=== PATIENT | male | born 1955 | race African-American/Black ===

== ENCOUNTER 2019-01-01 03:10 | Emergency (ER) | payer OTHER ==
[2019-01-01] MEDS ORDERED: MORPHINE 2 MG/ML SYR ONE ×2 (03:57→05:10)
[2019-01-01] MEDS ORDERED: NA CHLORIDE 0.9% 1,000 ML ONE (03:57)
[2019-01-01] MEDS ORDERED: DEXAMETHASONE 4 MG/ML VIAL ONE (03:57)
[2019-01-01] MEDS ORDERED: ONDANSETRON 4 MG/2 ML VIAL ONE (03:57)
[2019-01-01 04:06] LABS: Protime INR 3.25
[2019-01-01 04:07] LABS: Absolute Lymphocytes (CBC) 0.5 K/uL (0.7-4.9); Absolute Monocytes 0.4 K/uL (0.1-1.3); Absolute Neutrophil 5.6 K/uL (1.8-8.0); Basophils % 0.4 % (0-1.3); Hematocrit 39.4 % (39.6-49.0); Lymphocytes % 6.9 % (15.3-44.8); MPV 8.7 fL (7.6-11.3); Monocytes % 6.7 % (3.3-12.3); RBC Red Blood Cell Count 4.41 M/uL (4.33-5.43)
[2019-01-01] MEDS ORDERED: DIAZEPAM 5 MG TABLET ONE (04:14)
[2019-01-01 04:27] LABS: Albumin 3.1 g/dL (3.4-5.0); Bilirubin Direct 0.3 mg/dL (0-0.2); Bilirubin Total 1.1 mg/dL (0.2-1.0); Magnesium 1.8 mg/dL (1.8-2.4); Potassium 4.2 mmol/L (3.5-5.1); Protein, Total 6.7 g/dL (6.4-8.2); Troponin (Emerg Dept Use Only) 0.03 ng/mL (0.0-0.045)
--- NOTE | 2019-01-01 04:54 | ER ---
Nurse's Notes [facility] Name: Jose Guadalupe Moss Age: 63 yrs Sex: Male : 1955 Arrival Date: 01/01/2019 Time: 03:12 Bed 15 Private MD: Diagnosis: Strain of muscle, fascia and tendon at neck level;Cardiomegaly;Unspecified combined systolic (congestive) and diastolic (congestive) heart failure;Spondylolysis, cervical region Presentation: 01/01 03:15 Presenting complaint: Patient states: nontraumatic neck pain radiating to shoulders cc3 since Thursday night. Patient has difficulty lying on bed with pillow, and pain upon neck and head movement. Transition of care: patient was not received from another setting of care. Onset of symptoms was December 29, 2018. Risk Assessment: Do you want to hurt yourself or someone else? Patient reports no desire to harm self or others. Initial Sepsis Screen: Does the patient meet any 2 criteria? No. Patient's initial sepsis screen is negative. Does the patient have a suspected source of infection? No. Patient's initial sepsis screen is negative. Care prior to arrival: None. 03:15 Method Of Arrival: Ambulatory cc3 03:15 Acuity: MATEUS 3 cc3 Triage Assessment: 03:15 General: Appears in no apparent distress. uncomfortable, Behavior is calm, cooperative, cc3 appropriate for age. Pain: Complains of pain in back of neck Pain does not radiate. Pain radiates to shoulders Pain currently is 8 out of 10 on a pain scale. Quality of pain is described as aching. EENT: No signs and/or symptoms were reported regarding the EENT system. Neuro: Level of Consciousness is awake, alert, obeys commands, Oriented to person, place, time, situation, Appropriate for age. Cardiovascular: Patient's skin is warm and dry. Respiratory: Airway is patent Respiratory effort is even, unlabored, Respiratory pattern is regular, symmetrical. GI: Abdomen is round non-distended. : No signs and/or symptoms were reported regarding the genitourinary system. Derm: No signs and/or symptoms reported regarding the dermatologic system. Musculoskeletal: No signs and/or symptoms reported regarding the musculoskeletal system. Historical: - Allergies: 03:15 PENICILLINS; cc3 - Home Meds: 03:15 glimepiride 4 mg Oral tab 1 tab 2x daily [Active]; lovastatin 20 mg Oral tab 1 tab once cc3 daily [Active]; Warfarin 7 mg daily Oral [Active]; carvedilol 12.5 mg oral tab 1 tab 2 times per day [Active]; Entresto 49-51 mg oral tab 1 tab 2 times per day [Active]; furosemide 40 mg Oral tab 1 tab once daily [Active]; - PMHx: 03:15 Diabetes - NIDDM; Hypertension; Pacemaker; cc3 - PSHx: 03:15 left femur surgery; Hernia repair; cc3 - Immunization history:: Adult Immunizations not up to date. - Social history:: Smoking status: Patient/guardian denies using tobacco, never smoked. - Ebola Screening: : No symptoms or risks identified at this time. Screenin:15 Abuse screen: Denies threats or abuse. Denies injuries from another. Nutritional cc3 screening: No deficits noted. Tuberculosis screening: No symptoms or risk factors identified. Fall Risk Ambulatory Aid- None/Bed Rest/Nurse Assist (0 pts). Gait- Normal/Bed Rest/Wheelchair (0 pts) Mental Status- Oriented to own ability (0 pts). Assessment: 03:15 General: see triage assessment. cc3 04:00 Reassessment: Patient appears in no apparent distress at this time. Patient and/or cc3 family updated on plan of care and expected duration. Pain level reassessed. Patient is alert, oriented x 3, equal unlabored respirations, skin warm/dry/pink. Patient came back from CT scan department, awaiting result. 05:15 Reassessment: Patient appears in no apparent distress at this time. Patient and/or cc3 family updated on plan of care and expected duration. Pain level reassessed. Patient is alert, oriented x 3, equal unlabored respirations, skin warm/dry/pink. Dr. Hernadez discharged home the patient with prescription given. IV cannula removed and patient left ER vitally stable and ambulatory with his . Patient states feeling better. Patient states symptoms have improved. Vital Signs: 03:15 BP 147 / 97; Pulse 86; Resp 19 S; Temp 98(O); Pulse Ox 97% on R/A; Weight 97.07 kg (R); cc3 Height 5 ft. 11 in. (180.34 cm) (R); Pain 8/10; 04:29 BP 135 / 93; Pulse 78; Resp 20 S; Pulse Ox 98% on R/A; cc3 05:00 BP 137 / 85; Pulse 79; Resp 20 S; Pulse Ox 97% on R/A; cc3 03:15 Body Mass Index 29.85 (97.07 kg, 180.34 cm) cc3 ED Course: 03:12 Patient arrived in ED. am2 03:15 Arm band placed on right wrist. Patient notified of wait time. cc3 03:15 Patient has correct armband on for positive identification. Placed in gown. Bed in low cc3 position. Call light in reach. Side rails up X 1. 03:16 Davidson Hernadez MD is Attending Physician. [facility] 03:26 Cailin Flowers is Primary Nurse. cc3 03:33 Triage completed. cc3 03:38 XRAY Chest (1 view) In Process Unspecified. EDMS 03:45 Inserted saline lock: 20 gauge in right antecubital area, using aseptic technique. jd3 Blood collected. 03:[address] via wheelchair. kw1 03:56 CT completed. Patient tolerated procedure well. Patient moved back from CT. kw1 04:05 CT Head C Spine In Process Unspecified. EDMS 05:10 No provider procedures requiring assistance completed. IV discontinued, intact, cc3 bleeding controlled, No redness/swelling at site. Pressure dressing applied. Administered Medications: 04:00 Drug: NS 0.9% 1000 ml Route: IV; Rate: 75 ml/hr; Site: right antecubital; cc3 05:15 Follow up: Response: No adverse reaction; IV Status: Order to discontinue infusion; cc3 patient discharged home 04:00 Drug: Valium 5 mg Route: PO; cc3 04:33 Follow up: Response: No adverse reaction cc3 04:05 Drug: morphine 2 mg Route: IVP; Site: right antecubital; cc3 04:45 Follow up: Response: No adverse reaction cc3 04:08 Drug: Zofran 4 mg Route: IVP; Site: right antecubital; cc3 04:36 Follow up: Response: No adverse reaction; Nausea is decreased cc3 04:12 Drug: Decadron - Dexamethasone 10 mg Route: IVP; Site: right antecubital; cc3 04:37 Follow up: Response: No adverse reaction cc3 04:52 Drug: Lasix 40 mg Route: IVP; Site: right antecubital; cc3 05:15 Follow up: Response: No adverse reaction cc3 05:00 Drug: morphine 2 mg Route: IVP; Site: right antecubital; cc3 05:15 Follow up: Response: No adverse reaction; Pain is decreased cc3 Intake: Outcome: 04:53 Discharge ordered by MD. mckeon 05:10 Discharged to home ambulatory, with family. cc3 05:10 Condition: stable 05:10 Discharge instructions given to patient, family, Instructed on discharge instructions, follow up and referral plans. medication usage, Demonstrated understanding of instructions, follow-up care, medications, Prescriptions given X 3. 05:19 Patient left the ED. cc3 Signatures: Dispatcher [employer] Davidson Sheppard MD MD cha Moreno, Amanda am2 Davies, Jonathon RN RN Tamia Acosta1 Cailin Flowers cc3 Corrections: (The following items were deleted from the chart) 05:31 05:15 Reassessment: Patient appears in no apparent distress at this time. Patient cc3 and/or family updated on plan of care and expected duration. Pain level reassessed. Patient is alert, oriented x 3, equal unlabored respirations, skin warm/dry/pink. Dr. Hernadez discharged home the patient with prescription given. IV cannula removed and patient left ER vitally stable and ambulatory with his . cc3
--- NOTE | 2019-01-01 04:54 | EDPHYS ---
Physician Documentation [facility] Name: Jose Guadalupe Moss Age: 63 yrs Sex: Male : 1955 Arrival Date: 01/01/2019 Time: 03:12 Bed 15 Private MD: ED Physician Davidson Hernadez HPI: 01/01 03:26 This 63 yrs old Black Male presents to ER via Unassigned with complaints of Neck Pain, linda >24Hrs Old. 03:26 The patient or guardian complains of decreased range of motion, pain, tenderness. The linda symptoms are located on the back of neck. Onset: The symptoms/episode began/occurred at an unknown time. Context: The problem was sustained at home. Associated signs and symptoms: Pertinent positives: weakness. The pain does not radiate. Severity of symptoms: At their worst the symptoms were. Historical: - Allergies: 03:15 PENICILLINS; cc3 - Home Meds: 03:15 glimepiride 4 mg Oral tab 1 tab 2x daily [Active]; lovastatin 20 mg Oral tab 1 tab once cc3 daily [Active]; Warfarin 7 mg daily Oral [Active]; carvedilol 12.5 mg oral tab 1 tab 2 times per day [Active]; Entresto 49-51 mg oral tab 1 tab 2 times per day [Active]; furosemide 40 mg Oral tab 1 tab once daily [Active]; - PMHx: 03:15 Diabetes - NIDDM; Hypertension; Pacemaker; cc3 - PSHx: 03:15 left femur surgery; Hernia repair; cc3 - Immunization history:: Adult Immunizations not up to date. - Social history:: Smoking status: Patient/guardian denies using tobacco, never smoked. - Ebola Screening: : No symptoms or risks identified at this time. ROS: 03:26 Constitutional: Negative for fever, chills, and weight loss, Eyes: Negative for injury, linda pain, redness, and discharge, ENT: Negative for injury, pain, and discharge, Cardiovascular: Negative for chest pain, palpitations, and edema, Abdomen/GI: Negative for abdominal pain, nausea, vomiting, diarrhea, and constipation, Back: Negative for injury and pain, : Negative for injury, bleeding, discharge, and swelling, MS/Extremity: Negative for injury and deformity, Skin: Negative for injury, rash, and discoloration, Neuro: Negative for headache, weakness, numbness, tingling, and seizure, Psych: Negative for depression, anxiety, suicide ideation, homicidal ideation, and hallucinations, Allergy/Immunology: Negative for hives, rash, and allergies, Endocrine: Negative for neck swelling, polydipsia, polyuria, polyphagia, and marked weight changes, Hematologic/Lymphatic: Negative for swollen nodes, abnormal bleeding, and unusual bruising. 03:26 Respiratory: Positive for shortness of breath. Exam: 03:26 Constitutional: This is a well developed, well nourished patient who is awake, alert, linda and in no acute distress. Head/Face: Normocephalic, atraumatic. Eyes: Pupils equal round and reactive to light, extra-ocular motions intact. Lids and lashes normal. Conjunctiva and sclera are non-icteric and not injected. Cornea within normal limits. Periorbital areas with no swelling, redness, or edema. ENT: Nares patent. No nasal discharge, no septal abnormalities noted. Tympanic membranes are normal and external auditory canals are clear. Oropharynx with no redness, swelling, or masses, exudates, or evidence of obstruction, uvula midline. Mucous membranes moist. Chest/axilla: Normal chest wall appearance and motion. Nontender with no deformity. No lesions are appreciated. Cardiovascular: Regular rate and rhythm with a normal S1 and S2. No gallops, murmurs, or rubs. Normal PMI, no JVD. No pulse deficits. Respiratory: Lungs have equal breath sounds bilaterally, clear to auscultation and percussion. No rales, rhonchi or wheezes noted. No increased work of breathing, no retractions or nasal flaring. Abdomen/GI: Soft, non-tender, with normal bowel sounds. No distension or tympany. No guarding or rebound. No evidence of tenderness throughout. Back: No spinal tenderness. No costovertebral tenderness. Full range of motion. Male : Normal genitalia with no discharge or lesions. Skin: Warm, dry with normal turgor. Normal color with no rashes, no lesions, and no evidence of cellulitis. MS/ Extremity: Pulses equal, no cyanosis. Neurovascular intact. Full, normal range of motion. Neuro: Awake and alert, GCS 15, oriented to person, place, time, and situation. Cranial nerves II-XII grossly intact. Motor strength 5/5 in all extremities. Sensory grossly intact. Cerebellar exam normal. Normal gait. Psych: Awake, alert, with orientation to person, place and time. Behavior, mood, and affect are within normal limits. 03:26 Neck: External neck: is normal, no acute changes, C-spine: no acute changes, Thyroid: appears normal, Trachea: is midline with no obvious abnormalities, ROM/movement: limited range of motion, nuchal rigidity, is not appreciated, Lymph nodes: no appreciated lymphadenopathy. Vital Signs: 03:15 BP 147 / 97; Pulse 86; Resp 19 S; Temp 98(O); Pulse Ox 97% on R/A; Weight 97.07 kg (R); cc3 Height 5 ft. 11 in. (180.34 cm) (R); Pain 8/10; 04:29 BP 135 / 93; Pulse 78; Resp 20 S; Pulse Ox 98% on R/A; cc3 05:00 BP 137 / 85; Pulse 79; Resp 20 S; Pulse Ox 97% on R/A; cc3 03:15 Body Mass Index 29.85 (97.07 kg, 180.34 cm) cc3 MDM: 03:[address] [facility] 03:29 Data reviewed: vital signs, nurses notes, lab test result(s), EKG, radiologic studies, [facility] CT scan, plain films. 01/01 03:24 Order name: Basic Metabolic Panel; Complete Time: 04:[address] [facility] 01/01 03:24 Order name: CBC with Diff; Complete Time: 04:[address] [facility] 01/01 03:24 Order name: LFT's; Complete Time: 04:[address] [facility] 01/01 03:24 Order name: Magnesium; Complete Time: 04:[address] [facility] 01/01 03:24 Order name: NT PRO-BNP; Complete Time: 04:[address] [facility] 01/01 03:24 Order name: PT-INR; Complete Time: 04:[address] [facility] 01/01 03:24 Order name: Troponin (emerg Dept Use Only); Complete Time: 04:[address] [facility] 01/01 03:25 Order name: XRAY Chest (1 view) [facility] 01/01 03:25 Order name: CT Head C Spine [facility] 01/01 03:25 Order name: EKG; Complete Time: 03:[address] [facility] 01/01 03:25 Order name: Cardiac monitoring; Complete Time: 03:[address] [facility] 01/01 03:25 Order name: EKG - Nurse/Tech; Complete Time: 03:[address] [facility] 01/01 03:25 Order name: IV Saline Lock; Complete Time: 03:[address] [facility] 01/01 03:25 Order name: Labs collected and sent; Complete Time: 03:[address] [facility] 01/01 03:25 Order name: O2 Per Protocol; Complete Time: 03:[address] [facility] 01/01 03:25 Order name: O2 Sat Monitoring; Complete Time: 03:[address] [facility] Administered Medications: 04:00 Drug: NS 0.9% 1000 ml Route: IV; Rate: 75 ml/hr; Site: right antecubital; cc3 05:15 Follow up: Response: No adverse reaction; IV Status: Order to discontinue infusion; cc3 patient discharged home 04:00 Drug: Valium 5 mg Route: PO; cc3 04:33 Follow up: Response: No adverse reaction cc3 04:05 Drug: morphine 2 mg Route: IVP; Site: right antecubital; cc3 04:45 Follow up: Response: No adverse reaction cc3 04:08 Drug: Zofran 4 mg Route: IVP; Site: right antecubital; cc3 04:36 Follow up: Response: No adverse reaction; Nausea is decreased cc3 04:12 Drug: Decadron - Dexamethasone 10 mg Route: IVP; Site: right antecubital; cc3 04:37 Follow up: Response: No adverse reaction cc3 04:52 Drug: Lasix 40 mg Route: IVP; Site: right antecubital; cc3 05:15 Follow up: Response: No adverse reaction cc3 05:00 Drug: morphine 2 mg Route: IVP; Site: right antecubital; cc3 05:15 Follow up: Response: No adverse reaction; Pain is decreased cc3 Disposition: 01/01/19 04:53 Discharged to Home. Impression: Strain of muscle, fascia and tendon at neck level, Cardiomegaly, Unspecified combined systolic (congestive) and diastolic (congestive) heart failure, Spondylolysis, cervical region. - Condition is Stable. - Discharge Instructions: Heart Failure, Muscle Strain, Cervical Sprain, [id number], Heart Failure, [id number]. - Prescriptions for Tylenol- Codeine #3 300-30 mg Oral Tablet - take 2 tablet by ORAL route every 6 hours As needed; 30 tablet. Valium 5 mg Oral Tablet - take 1 tablet by ORAL route every 8 hours As needed; 15 tablet. Medrol (Al) 4 mg Oral Tablets, Dose Pack - take 1 tablet by ORAL route as directed - follow package instructions; 1 packet. - Medication Reconciliation Form, Thank You Letter, Antibiotic Education, Prescription Opioid Use form. - Follow up: Private Physician; When: 2 - 3 days; Reason: Recheck today's complaints, Continuance of care, Re-evaluation by your physician. - Problem is new. - Symptoms have improved. Signatures: Dispatcher [employer] EDMS Davidson Hernadez MD MD cha Cordel, Charlene cc3 Corrections: (The following items were deleted from the chart) 04:54 04:53 01/01/2019 04:53 Discharged to Home. Impression: Strain of muscle, fascia and linda tendon at neck level; Cardiomegaly; Unspecified combined systolic (congestive) and diastolic (congestive) heart failure. Condition is Stable. Discharge Instructions: Muscle Strain, Cervical Sprain, [id number]. Prescriptions for Tylenol-Codeine #3 300-30 mg Oral Tablet - take 2 tablet by ORAL route every 6 hours As needed; 30 tablet, Valium 5 mg Oral Tablet - take 1 tablet by ORAL route every 8 hours As needed; 15 tablet, Medrol (Al) 4 mg Oral Tablets, Dose Pack - take 1 tablet by ORAL route as directed - follow package instructions; 1 packet. and Forms are Medication Reconciliation Form, Thank You Letter, Antibiotic Education, Prescription Opioid Use. Follow up: Private Physician; When: 2 - 3 days; Reason: Recheck today's complaints, Continuance of care, Re-evaluation by your physician. Problem is new. Symptoms have improved. [facility] 05:19 04:54 01/01/2019 04:53 Discharged to Home. Impression: Strain of muscle, fascia and cc3 tendon at neck level; Cardiomegaly; Unspecified combined systolic (congestive) and diastolic (congestive) heart failure; Spondylolysis, cervical region. Condition is Stable. Discharge Instructions: Muscle Strain, Cervical Sprain, [id number], Heart Failure. Prescriptions for Tylenol-Codeine #3 300-30 mg Oral Tablet - take 2 tablet by ORAL route every 6 hours As needed; 30 tablet, Valium 5 mg Oral Tablet - take 1 tablet by ORAL route every 8 hours As needed; 15 tablet, Medrol (Al) 4 mg Oral Tablets, Dose Pack - take 1 tablet by ORAL route as directed - follow package instructions; 1 packet. and Forms are Medication Reconciliation Form, Thank You Letter, Antibiotic Education, Prescription Opioid Use. Follow up: Private Physician; When: 2 - 3 days; Reason: Recheck today's complaints, Continuance of care, Re-evaluation by your physician. Problem is new. Symptoms have improved. linda
[2019-01-01] MEDS ORDERED: FUROSEMIDE 40 MG/4 ML VIAL ONE (05:01)
[2019-01-01 05:23] VITALS: TEMP 98
[2019-01-01 05:24] VITALS: BP 135/93; O2SAT 98
--- NOTE | 2019-01-01 08:42 | RAD REPORT ---
EXAM DESCRIPTION: Ximena Single View01/01/2019 3:37 am CLINICAL HISTORY: Cough COMPARISON: August 2018 FINDINGS: The lungs appear clear of acute infiltrate. The heart is mildly to moderately enlarged. P acemaker leads are in place. IMPRESSION: No acute abnormalities displayed
--- NOTE | 2019-01-02 10:13 | EKG ---
Test Date: 2019-01-01 Test Time: 03:35:27 Title I Math Tutor: REGINALD MEASUREMENT RESULTS: Intervals: Rate: 81 [place]: 148 QRSD: 164 QT: 444 QTc: 515 [place]: P: 52 [place]: 148 QRS: 262 T: 98 INTERPRETIVE STATEMENTS: Electronic ventricular pacemaker Compared to ECG 04/20/2006 05:44:00 Sinus rhythm no longer present Electronically Signed On 01-02-19 10:12:29 SAFETY ADMINISTRATOR by Sae Aguilera
--- NOTE | 2019-01-03 11:13 | RAD REPORT ---
EXAM DESCRIPTION: CT - Head C Spine Mpr Wo Con - 01/01/2019 4:25 am CLINICAL HISTORY: The patient is 63 years old and is Male; PAIN TECHNIQUE: Axial computed tomography images of the head/brain and cervical spine without intravenous contrast. Sagittal and coronal reformatted images were created and reviewed. This CT exam was pe rformed using one or more of the following dose reduction techniques: automated exposure control, a djustment of the mA and/or kV according to patient size, and/or use of iterative reconstruction techn ique. COMPARISON: No relevant prior studies available. FINDINGS: Brain: Minimal encephalomalacia within the left parietal lobe is present. The randall-white differentiation is maintained. There is no intracranial hemorrhage, mass effect, or midline shift. Ventricles: Unremarkable. No ventriculomegaly. Skull: No acute fracture. Sinuses: Unremarkable as visualized. No acute sinusitis. Mastoid air cells: Unremarkable as visualized. No mastoid effusion. Vertebrae: Reversal of the normal cervical curvature is present. The vertebral body heights and alignment are maintained. Discs/spinal canal/neural foramina: Multilevel degenerative change of the spine is present. Inte rvertebral disc space narrowing with anterior and posterior osteophyte formation is present. Mild dif fuse canal narrowing is noted. Soft tissues: The soft tissues are normal. Lung apices: The lung apices are clear. IMPRESSION: 1. No acute intracranial findings. 2. Reversal of the normal cervical curvature is present. Findings may be secondary to patient pos ition versus muscle spasm. 3. Moderate spondylosis of the cervical spine. Electronically signed by: Rosmery White MD 01/01/2019 4:16 AM INDUSTRIAL SECURITY ANALYST Due to temporary technical issues with the PACS/Fluency reporting system, reports are being signed by the in house radiologist as a courtesy to ensure prompt reporting. The interpreting radiologist is f ully responsible for the content of the report.
== END 2019-01-01 05:19 | disposition home or self-care (01) ==
LOC: ER 03:10
DX: S16.1XXA Strain of muscle, fascia and tendon at neck level, initial encounter (principal); I51.7 Cardiomegaly; I50.40 Unspecified combined systolic (congestive) and diastolic (congestive) heart failure; M47.892 Other spondylosis, cervical region; I10 Essential (primary) hypertension; E11.9 Type 2 diabetes mellitus without complications; Z95.0 Presence of cardiac pacemaker; Z79.01 Long term (current) use of anticoagulants; Z88.0 Allergy status to penicillin
CPT/HCPCS: 96361; 93005; 85025; 80048; 36415; 83735; 85610; 80076; 84484; 83880; 70450; 72125; 71045; 96375; 96374; 99284; J1940; J2270 ×2; J7030; J2405

== ENCOUNTER 2020-10-11 07:28 | Observation (INO) | payer OTHER ==
--- NOTE | 2020-10-11 09:20 | RAD REPORT ---
EXAM DESCRIPTION: Ximena Holm And Lat (2 Views)10/11/2020 9:13 am CLINICAL HISTORY: Shortness of breath COMPARISON: December 2019 FINDINGS: Mild bilateral pulmonary opacities. The heart is moderately enlarged. Pacemaker leads are in place. IMPRESSION: These findings likely represent mild CHF
[2020-10-11 09:51] LABS: Absolute Lymphocytes (CBC) 0.9 K/uL (0.7-4.9); Basophils % 1.1 % (0-1.3); Hematocrit 38.9 % (39.6-49.0); MPV 8.9 fL (7.6-11.3); RBC Red Blood Cell Count 4.36 M/uL (4.33-5.43)
[2020-10-11 09:57] LABS: Protime INR 3.23
[2020-10-11 10:50] LABS: Bilirubin Direct 0.5 mg/dL (0-0.2); Bilirubin Total 2.2 mg/dL (0.2-1.0); Magnesium 2.1 mg/dL (1.8-2.4); Phosphorus 3.1 mg/dL (2.5-4.9); Potassium 4.3 mmol/L (3.5-5.1); Protein, Total 6.6 g/dL (6.4-8.2); Thyroid Stimulating Hormone 1.16 uIU/mL (0.360-3.740)
--- NOTE | 2020-10-11 12:07 | P.SSS ---
Patient History Date of Service: 10/11/20 Reason for admission: DYSPNEA History of Present Illness: MR. SHORT HAS UNCOMENSATED HEART FAILURE AND ORAL MEDS ARE NOT WORKING. HE IS ON FUROSEMIDE, ZAROXOLYN AND ENTRESTO BUT STILL EDMEATOUS BOTH LEGS AND DYSPNEIC. PLAN IS TO PUT HIM IN HOSPITAL FOR IV LASIX AND CARDIOLOGY EVAL. HOSPITAL HAS NO NURSES TO TAKE CARE OF HIM ON FOURTH FLOOR. THIS IS WHY HE IS KEPT IN ER. HE IS NOT HAPPY WITH IT. 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 HE UNDERSTANDS THAT CHF CAN GET WORSE AND BE DETRIMENTAL TO HIS LIFE. HE STILL IS NOT STAYING IN HOSPITAL. Allergies Penicillins Adverse Reaction (Verified 09/04/12 08:51) hyperventilates - Disposition Disposition: ROUTINE DISCHARGE Condition: SERIOUS
--- NOTE | 2020-10-11 15:32 | ER ---
Nurse's Notes [facility] Name: Jose Guadalupe Moss Age: 65 yrs Sex: Male : 1955 Arrival Date: 10/11/2020 Time: 07:33 Bed External Waiting Private MD: Vladislav Aguilar V Diagnosis: Acute on chronic combined systolic (congestive) and diastolic (congestive) heart failure ED Course: 10/11 07:33 Patient arrived in ED. rg4 07:33 Vladislav Aguilar MD is Private Physician. rg4 08:10 Ezequiel Delvalle, RN is Primary Nurse. em 15:31 Vladislav Aguilar MD is Hospitalizing Provider. iw Administered Medications: No medications were administered Outcome: 15:32 Decision to Hospitalize by Provider. iw 15:32 Patient left the ED. iw Signatures: Ezequiel Delvalle, RN RN Citlali Cohen RN RN iw Garcia, Rubi rg4
== END 2020-10-11 11:58 | disposition home or self-care (01) ==
LOC: ER 07:28 → INTOOBSV 07:30 → ERHOLD 07:30
PROVIDERS: ADMIT Internal Medicine; ATTEND Internal Medicine
DX: I50.43 Acute on chronic combined systolic (congestive) and diastolic (congestive) heart failure (principal); Z88.0 Allergy status to penicillin
CPT/HCPCS: 85025; 80048; 36415; 83735; 84100; 85610; 80076; 85730; 84443; 82607; 82306; 83880; 71046; G0378 ×2

== ENCOUNTER 2022-09-20 14:07 | Emergency (ER) | payer OTHER ==
--- OUTSIDE RECORDS SUMMARY | 2022-09-20 14:11 | XMS REPORT | Continuity of Care Document ---
:1955 Author Organization [facility] t Address [address] [place] [address] Care Team Providers Name Role Phone VLADISLAV AGUILAR Primary Care Physician Unavailable Vladislav Aguilar Attending Clinician Unavailable Jona ALCARAZ, Nazia Attending Clinician Unavailable Gwendolyn Ramirez Attending Clinician Ian ONEALPKanchan Attending Clinician GWENDOLYN HAYNES Attending Clinician Unavailable Doctor Unassigned, Marina Attending Clinician Unavailable RODRICK DOWD Attending Clinician Unavailable Vaccine, Adc Family Medicine Attending Clinician Unavailable Rodrick Dowd DO Attending Clinician Noelle ALCARAZ, Shannon Bhandari Attending Clinician Unavailable Only, Ang Db Test Attending Clinician Unavailable Payers Payer Name Policy Type Policy Number Effective Date Expiration Date [facility] [id number] 2021 MEDICARE GOLD 00:00:00 Problems Condition Condition Condition Status Onset Resolution Last Treating Co mments Source Name Details Category Date Date Treatment Clinician Date No known No known Disease Unive rs active active ity of problems problems [facility] Allergies, Adverse Reactions, Alerts Allergy Allergy Status Severity Reaction(s) Onset Inactive Treating Comm ents Source Name Type Date Date Clinician Penicill Propensi Active Hives Univer s ins ty to 05-04 ity of adverse 00:00: [place] reaction Medical s Branch PENICILL Drug Active Hives Univers INS Class 7- ity of 00:00: [place] [id number] Medical Branch Social History Social Habit Start Date Stop Date Quantity Comments Source Exposure to 2022-04-24 2022-05-04 Not sure [facility] SARS-CoV-2 (event) 00:00:00 18:37:00 Medica l Branch Sex Ass[birth year] [facility] 00:00:00 00:00:00 Medical Branch Smoking Status Start Date Stop Date Source Unknown if ever smoked [facility] Medical Branch Medications Ordered Filled Start Stop Current Ordering Indication Dosage Frequency Signature Comments Components Source Medication Medication Date Date Medication? Clinician (SIG) Name Name [place] Yes [id number] 250mg Take 1 Univers n 250 mg 7-03 tablet by ity of tablet 00:00: mouth [place] 00 daily. Medical Branch [place] Yes [id number] 250mg Take 1 Univers n 250 mg 7-03 tablet by ity of tablet 00:00: mouth [place] 00 daily. Medical Branch [place] Yes [id number] 250mg Take 1 Univers n 250 mg 7-03 tablet by ity of tablet 00:00: mouth [place] 00 daily. Medical Branch codeine-gua 2021- No [id number] 5mL Take 5 mL Univers ifenesin -01 06-11 by mouth ity of 10-100 mg/5 00:00[place] 04:59 [place] 6 [place] oral 00 :00 (six) Medical solution hours as Branch needed for Cough for up to 7 days. Indication s: acute pain codeine-gua 2021- No 4647 5mL Take 5 mL Univers ifenesin 7-01 06-11 by mouth ity of 10-100 mg/5 00:00[place] 04:59 [place] 6 [place] mL oral 00 :00 (six) Medical solution hours as Branch needed for Cough for up to 7 days. Indication s: acute pain codeine-gua 2021- No 4647 5mL Take 5 mL Univers ifenesin 7- 07-11 by mouth ity of 10-100 mg/5 00:00: 04:59 every 6 [place] mL oral 00 :00 (six) Medical solution hours as Branch needed for Cough for up to 7 days. Indication s: acute pain Immunizations Ordered Filled Immunization Date Status Comments Sourc e Immunization Name Name JALEN-COV-2 COVID-19 2022-04-07 Completed Unive rsity of MODERNA 0.25ML 00:00:00 [facility] BOOSTER VACCINE Branch SARS-COV-2 COVID-19 2022-04-07 Completed Unive rsity of MODERNA 0.25ML 00:00:00 [facility] BOOSTER VACCINE Branch SARS-COV-2 COVID-19 2022-04-07 Completed Unive rsity of MODERNA 0.25ML 00:00:00 [facility] BOOSTER VACCINE Branch Vital Signs Vital Name Observation Time Observation Value Comments Source Systolic blood 2022-05-04 23:40:00 119 mm[Hg] Univer sity of pressure [facility] Diastolic blood 2022-05-04 23:40:00 71 mm[Hg] Unive rsity of pressure [facility] Heart rate 2022-05-04 23:40:00 108 /min [facility] Body temperature 2022-05-04 23:40:00 37.83 [facility] [place] [facility] Respiratory rate 2022-05-04 23:40:00 25 /min General acute hospital Body height 2022-05-04 23:40:00 180.3 cm [facility] Body weight 2022-05-04 23:40:00 90.583 kg [facility] BMI 2022-05-04 23:40:00 27.85 kg/m2 [facility] Oxygen saturation in 2022-05-04 23:40:00 98 /min [facility] Arterial blood by [facility] Pulse oximetry Branch Procedures Procedure Date / Time Performed Performing Clinician Jose e XR CHEST 2 VW 2022-05-05 00:04:00 Gwendolyn Haynes Sumrall o f [facility] Encounters Start End Encounter Admission Attending Care Care Encounter Source Date/Time Date/Time Type Type Clinicians Facility Department ID 2022-06-18 Outpatient MARCOS Aguilar [facility] [id number] Common 09:10:17 Vladislav [facility] 2022-05-14 Outpatient MARCOS Aguilar [facility] [id number] Common 09:11:03 Vladislav [facility] 2022-05-05 2022-05-05 Telephone JonaNazia AFIA [id number] Univers 00:00:00 00:00:00 RHONDA [id number] it y of HOSPITAL [id number] Isidro as [phone] [facility] [address] 2022-05-04 2022-05-04 [facility] [id number] Univers 18:54:07 23:59:00 Encounter [facility] [id number] ity of [place] [id number] Isidro as SAE?BLEA [id number] [facility] [address] MEDICAL OFFICE [facility] 2022-05-04 2022-05-04 Urgent [place] [facility] [id number] Univers 18:40:00 19:04:20 Care Ian [facility] [id number] ity of [place] [id number] Isidro as SAE?BLEA [id number] [facility] [address] [facility] OFFICE [facility] 2022-05-04 2022-05-04 Outpatient Gisela HAYNES [facility] [id number] Univers 18:40:00 19:04:20 GWENDOLYN [facility] [place] [facility] 2022-05-04 2022-05-04 [facility] [id number] Univers 18:54:07 18:54:07 [facility] [place] 2022-05-04 2022-05-04 Orders Doctor OREILLY [id number] Univers 00:00:00 00:00:00 Only Unassigned, RHONDA [id number] ity of [place] [facility] [id number] Isidro as [id number] [facility] [address] 2022-04-08 2022-04-08 Outpatient Gisela DOWD [facility] [id number] Univers 08:30:00 08:30:00 RODRICK [facility] 2022-04-07 2022-04-07 Outpatient Gisela DOWD [facility] [id number] Univers 15:30:00 16:06:14 RODRICK [facility] 2022-04-07 2022-04-07 Imm/Inj Vaccine, Adc Family Medicine [facility] 1.2.840.114 [id number] Univers 15:30:00 15:40:00 Visit Rodrick Dowd 350.1.13 .10 ity [facility] [id number] [place] [id number] Ms vandana ETIENNE [address] BUILDING 2021-09-09 2021-09-09 Outpatient R HANDY [facility] [id number] Univers 08:50:00 08:50:00 RODRICK [facility]anil [facility] 2021-07-15 2021-07-15 Letter AFIA Drake [id number] Univers 00:00:00 00:00:00 (Out) Shannon ELLIS [id number] it y of [facility] [id number] [place] as [id number] [address] 2021-07-13 2021-07-13 Laboratory Only, Ang Db Test [facility] 1.2.8 [id number] Univers 19:34:50 19:49:50 [facility] [id number] ity [facility] [id number] Isidro as Sae?Blea [id number] Ms vandana kney [address] 2021-07-13 2021-07-13 Outpatient R DALLAS [facility] [id number] Univers 19:30:00 19:30:00 [facility] Results This patient has no known results.
[2022-09-20] MEDS ORDERED: ACETAMINOPHEN 500 MG TAB ONE (14:49)
[2022-09-20] MEDS ORDERED: FENTANYL CITR 100 MCG/2 ML ONE (14:50)
[2022-09-20 15:05] LABS: Absolute Lymphocytes (CBC) 0.4 K/uL (0.7-4.9); Hematocrit 30.7 % (39.6-49.0); Lymphocytes % 5.3 % (15.3-44.8); MCV 97.4 fL (80-100); RBC Red Blood Cell Count 3.15 M/uL (4.33-5.43)
[2022-09-20 15:19] LABS: Urine Blood Trace-lysed (Negative); Urine Glucose Negative (Negative); Urine Protein 2+ (Negative); Urine Specific Gravity 1.015 (1.005-1.030); Urine pH 5.5 (5.0-7.0)
[2022-09-20 15:23] LABS: Bilirubin Total 1.9 mg/dL (0.2-1.0); Potassium 4.1 mmol/L (3.5-5.1); Protein, Total 6.8 g/dL (6.4-8.2)
[2022-09-20 15:42] LABS: SARS-COV-2 RT PCR NEGATIVE (NEGATIVE)
[2022-09-20 15:46] LABS: Protime INR 2.13
[2022-09-20 15:53] LABS: Urine RBC <5 /HPF (None Seen); Urine WBC Clump Rare /HPF (None Seen)
--- NOTE | 2022-09-20 16:01 | RAD REPORT ---
EXAM DESCRIPTION: USExtrem Venous W Compress Bil09/20/2022 3:21 pm CLINICAL HISTORY: Leg swelling COMPARISON: 2014 FINDINGS: The common femoral, superficial femoral, popliteal and posterior tibial veins bilaterally are compressible and demonstrate augmentation. Doppler demonstrates good flow. Grayscale, color and spectral analysis performed on all vessels IMPRESSION: No evidence of deep venous thrombosis involving either lower extremity.
--- NOTE | 2022-09-20 16:07 | RAD REPORT ---
EXAM DESCRIPTION: [place] Single View09/20/2022 3:23 pm CLINICAL HISTORY: Cough COMPARISON: March 2022 FINDINGS: The lungs appear clear of acute infiltrate. The heart is moderately to markedly enlarged. Pacemaker leads in place IMPRESSION: No acute abnormalities displayed
--- NOTE | 2022-09-20 16:23 | RAD REPORT ---
EXAM DESCRIPTION: CT - Stone Protocol - 09/20/2022 4:07 pm CLINICAL HISTORY: Abdominal pain./left inguinal pain COMPARISON: None. TECHNIQUE: Computed axial tomography of the abdomen pelvis was obtained without oral or IV contrast. Lack of IV and oral contrast limits evaluation of solid organs, appendix, bowel, and vessels. Mills l reformatted images were obtained and reviewed. All CT scans are performed using dose optimization technique as appropriate and may include automated exposure control or mA/KV adjustment according to patient size. FINDINGS: A renal calculus is not seen. An ureteral calculus is not noted. A bladder calculus is not present. Small right renal cyst. No hydronephrosis. Bladder wall appears thickened. The liver is mildly enlarged. Spleen, pancreas and adrenals appear grossly normal There is no evidence of diverticulitis. Normal appendix Left inguinal hernia repair. 5 centimeter fluid collection within the anterior subcutaneous fat lower left pelvis Diffuse edema within the subcutaneous tissues Small amount of ascites A Schmorl's node invaginating into the superior vertebral endplate of L1. This appears subacute IMPRESSION: Negative for a genitourinary calculus 5 centimeter fluid collection within the anterior subcutaneous fat lower left pelvis may represent a hematoma or seroma. Abscess is considered less likely and should be correlated clinically. Bladder wall thickening may be secondary to incomplete distention or inflammation
--- NOTE | 2022-09-20 17:18 | EDPHYS ---
Physician Documentation [facility] Name: Jose Guadalupe Moss Age: 67 yrs Sex: Male : 1955 Arrival Date: 09/20/2022 Time: 14:11 Bed 5 Private MD: ED Physician Bharat Hsieh HPI: 09/20 14:45 This 67 yrs old Black Male presents to ER via Ambulatory with complaints of Abdominal cp Pain. 14:45 The patient presents with left inguinal pain and swelling. Onset: The symptoms/episode cp began/occurred yesterday, and became worse today. The symptoms radiate to left low back. Associated signs and symptoms: Pertinent positives: fever, cough, Pertinent negatives: constipation, diarrhea, dysuria, testicular pain. The symptoms are described as constant. 14:45 Severity of pain: in the emergency department the pain is unchanged despite home cp interventions, took prescribed hydrocodone. Patient reports left inguinal hernia repair surgery by DR Estrada 3 weeks ago with no complications. Historical: - Allergies: 14:16 PENICILLINS; hb - PMHx: 14:16 Diabetes - NIDDM; Hypertension; Pacemaker; hb - Immunization history:: Adult Immunizations unknown. - Social history:: Smoking status: unknown. ROS: 14:50 Constitutional: Negative for body aches, chills, fever, poor PO intake. cp 14:50 Eyes: Negative for injury, pain, redness, and discharge. cp 14:50 ENT: Negative for drainage from ear(s), ear pain, sore throat, difficulty swallowing, difficulty handling secretions. 14:50 Cardiovascular: Positive for edema, Negative for chest pain, palpitations. 14:50 Respiratory: Negative for cough, shortness of breath, wheezing. 14:50 Abdomen/GI: Positive for of the left inguinal area, pain and swelling, Negative for vomiting, diarrhea, constipation. 14:50 Back: Positive for radiated pain, of the left low back, Negative for injury or acute deformity, decreased range of motion. 14:50 : Negative for urinary symptoms, hematuria, testicular pain 14:50 Skin: Negative for cellulitis, rash. 14:50 Neuro: Negative for altered mental status, dizziness, headache, weakness. 14:50 All other systems are negative. Exam: 14:55 Constitutional: The patient appears in no acute distress, alert, awake, non-toxic, well cp developed, well nourished, uncomfortable. 14:55 Head/Face: Normocephalic, atraumatic. cp 14:55 Eyes: Periorbital structures: appear normal, Conjunctiva: normal, no exudate, no injection, Sclera: no appreciated abnormality, Lids and lashes: appear normal, bilaterally. 14:55 ENT: External ear(s): are unremarkable, Nose: is normal, Mouth: Lips: moist, Oral mucosa: moist, Posterior pharynx: Airway: no evidence of obstruction, patent. 14:55 Chest/axilla: Inspection: normal. 14:55 Cardiovascular: Rate: tachycardic, Rhythm: regular, Edema: ankle edema, that is moderate, JVD: is not appreciated. 14:55 Respiratory: the patient does not display signs of respiratory distress, Respirations: normal, no use of accessory muscles, no retractions, labored breathing, is not present, Breath sounds: are clear throughout, no decreased breath sounds, no stridor, no wheezing. 14:55 Abdomen/GI: Inspection: swelling, tenderness to palpation noted left inguinal area, surgical wound appears with no dehiscence and no drainage expressed, Bowel sounds: active, all quadrants, Palpation: soft, in all quadrants, rebound tenderness, is not appreciated, involuntary guarding, is not appreciated. 14:55 Back: pain, that is mild, of the left lower back, ROM is normal, vertebral tenderness, is not appreciated. 14:55 Skin: cellulitis, is not appreciated, no rash present. 14:55 Neuro: Orientation: to person, place \T\ time. Mentation: is normal, Motor: moves all fours, strength is normal, Sensation: is normal. 15:07 ECG was reviewed by the Attending Physician. cp Vital Signs: 14:15 BP 122 / 74; Pulse 106; Resp 20; Temp 100.5(TE); Pulse Ox 100% ; Weight 83.91 kg; hb Height 5 ft. 11 in. (180.34 cm); Pain 8/10; 16:42 BP 97 / 74; Pulse 97; Resp 20; Temp 98.9(O); Pulse Ox 99% on R/A; jd3 14:15 Body Mass Index 25.80 (83.91 kg, 180.34 cm) hb MDM: 14:20 Patient medically screened. cp 15:00 Differential diagnosis: Pyelonephritis, Testicular Torsion, Ureterolithiasis, urinary cp tract infection, abscess, reoccurrence of hernia, seroma, cellulitis. 17:05 Physician consultation: Sukumar Estrada MD was called at 17:08, was contacted at 17:08, regarding patient's condition, and will see patient in office, next week, would like medications started, Cipro 500 mg bid. 17:17 Data reviewed: vital signs, nurses notes, lab test result(s), radiologic studies, CT cp scan. 17:17 Counseling: I had a detailed discussion with the patient and/or guardian regarding: the cp historical points, exam findings, and any diagnostic results supporting the discharge/admit diagnosis, lab results, radiology results, the need for outpatient follow up, for definitive care, a general surgeon, to return to the emergency department if symptoms worsen or persist or if there are any questions or concerns that arise at home. Response to treatment: the patient's symptoms have mildly improved after treatment, and as a result, I will discharge patient. 09/20 14:32 Order name: Urine Microscopic Only; Complete Time: 16:05 09/20 16:37 Interpretation: Reviewed. 09/20 14:32 Order name: CBC with Diff; Complete Time: 15:21 09/20 15:21 Interpretation: Normal except: RBC 3.15; HGB 9.9; HCT 30.7; RDW 15.6; BARBIE% 84.8; LYM% cp 5.3; LYMA 0.4. 09/20 14:32 Order name: CMP; Complete Time: 15:36 09/20 15:36 Interpretation: Normal except: GLUC 249; BUN 52; CRE 1.87; GFR 39; ALK 142; BILIT 1.9; cp ALB 3.0; GLOB 3.8; A/G 0.8. 09/20 14:32 Order name: Lipase; Complete Time: 15:36 09/20 14:32 Order name: Lactate w/ 2H reflex if indic.; Complete Time: 15:21 09/20 15:22 Interpretation: LAC 1.6; Reviewed. 09/20 14:32 Order name: COVID-19/FLU A+B; Complete Time: 16:05 09/20 14:32 Order name: XRAY Chest (1 view); Complete Time: 16:32 09/20 14:32 Order name: US Extremity Venous W Compression Mao; Complete Time: 16:05 09/20 16:05 Interpretation: Report reviewed. 09/20 14:51 Order name: PT-INR; Complete Time: 16:05 09/20 16:05 Interpretation: Abnormal: PT 23.4; INR <p>2.13</p>. 09/20 14:51 Order name: Ptt, Activated; Complete Time: 16:05 09/20 16:05 Interpretation: Abnormal: PTT 40.9. 09/20 15:20 Order name: Urine Dipstick-Ancillary; Complete Time: 15:21 EDMS 09/20 15:21 Interpretation: Normal except: UKET Trace; UBLD Trace-lysed; UPROT 2+. 09/20 15:37 Order name: CT Stone Protocol 09/20 15:40 Order name: Stone Protocol; Complete Time: 16:32 EDMS 09/20 14:32 Order name: Urine Dipstick-Ancillary (obtain specimen); Complete Time: 15:23 09/20 14:32 Order name: IV Saline Lock; Complete Time: 14:43 09/20 14:32 Order name: Labs collected and sent; Complete Time: 14:43 09/20 14:32 Order name: NPO; Complete Time: 14:36 09/20 14:32 Order name: EKG; Complete Time: 14:32 09/20 14:32 Order name: EKG - Nurse/Tech; Complete Time: 15:04 09/20 16:41 Order name: Vital Signs: please update to include temp; Complete Time: 16:46 cp EC:07 Rate is 99 beats/min. Rhythm is regular, Sinus Rhythm with Ventricular paced. TN cp interval is normal. QRS interval is prolonged at 156 msec. QT interval is normal. T waves are Inverted in leads I, aVR. Interpreted by me. Reviewed by me. Administered Medications: 15:04 Drug: fentaNYL (PF) 25 mcg Route: IVP; Site: right antecubital; jd3 16:00 Follow up: Response: No adverse reaction; RASS: Alert and Calm (0) jd3 15:04 Drug: Tylenol 1000 mg Route: PO; jd3 17:13 Follow up: Response: No adverse reaction jd3 17:28 Drug: Cipro (ciprofloxacin) 500 mg Route: PO; 17:45 Follow up: Response: Medication administered at discharge. jd3 Disposition: 18:33 Co-signature as Attending Physician, Bharat Hsieh MD I agree with the assessment and rt plan of care. Disposition Summary: 09/20/22 17:17 Discharge Ordered Location: Home cp Problem: new cp Symptoms: have improved cp Condition: Stable cp Diagnosis - Other intra-abdominal and pelvic swelling, mass and lump - left inguinal, post cp surgery Followup: cp - With: Sukumar Estrada MD - When: 2 - 3 days - Reason: Recheck today's complaints Discharge Instructions: - Discharge Summary Sheet cp - Seroma cp Forms: - Medication Reconciliation Form cp - Thank You Letter cp - Antibiotic Education cp - Prescription Opioid Use cp Prescriptions: - Cipro 500 mg Oral Tablet - take 1 tablet by ORAL route every 12 hours for 10 days; 20 tablet; Refills: 0, cp Product Selection Permitted Signatures: Dispatcher [employer] EDCitlali Cui RN RN iw Davidson Gilliam PA PA cp Kavita Bar RN RN Jose Nielson RN RN jBharat Rios MD MD rt Corrections: (The following items were deleted from the chart) 15:45 14:55 Abdomen Pelvis W Con+CT.RAD.BRZ ordered. EDMS EDMS 17:45 16:41 Dressing - Wound ordered. cp jd3
--- NOTE | 2022-09-20 17:18 | ER ---
Nurse's Notes [facility] Name: Jose Guadalupe Msos Age: 67 yrs Sex: Male : 1955 Arrival Date: 09/20/2022 Time: 14:11 Bed 5 Private MD: Diagnosis: Other intra-abdominal and pelvic swelling, mass and lump-left inguinal, post surgery Presentation: 09/20 14:15 Chief complaint: Had hernia repair [address] Estrada, reports sudden increase in hb pain that started yesterday. Coronavirus screen: At this time, the client does not indicate any symptoms associated with coronavirus-19. Ebola Screen: No symptoms or risks identified at this time. Initial Sepsis Screen: Does the patient meet any 2 criteria? No. Patient's initial sepsis screen is negative. Does the patient have a suspected source of infection? No. Patient's initial sepsis screen is negative. Risk Assessment: Do you want to hurt yourself or someone else? Patient reports no desire to harm self or others. Onset of symptoms was September 19, 2022. 14:15 Method Of Arrival: Ambulatory hb 14:15 Acuity: MATEUS 3 hb Historical: - Allergies: 14:16 PENICILLINS; hb - PMHx: 14:16 Diabetes - NIDDM; Hypertension; Pacemaker; hb - Immunization history:: Adult Immunizations unknown. - Social history:: Smoking status: unknown. Screenin:05 Abuse screen: Denies threats or abuse. Nutritional screening: No deficits noted. jd3 Tuberculosis screening: No symptoms or risk factors identified. Fall Risk IV access (20 points). Ambulatory Aid- None/Bed Rest/Nurse Assist (0 pts). Gait- Normal/Bed Rest/Wheelchair (0 pts) Mental Status- Oriented to own ability (0 pts). Total Miller Fall Scale indicates No Risk (0-24 pts). Assessment: 15:04 General: Appears in no apparent distress. comfortable, Behavior is calm, cooperative, jd3 appropriate for age. Pain: Complains of pain in left lower quadrant Quality of pain is described as throbbing, Is intermittent. Neuro: Reece Agitation-Sedation Scale (RASS): 0 - Alert and Calm Level of Consciousness is awake, alert, obeys commands, Oriented to person, place, time, situation. Cardiovascular: Denies chest pain, Capillary refill < 3 seconds Patient's skin is warm and dry. Rhythm is regular. Respiratory: Airway is patent Respiratory effort is even, unlabored, Respiratory pattern is regular, symmetrical, Denies cough, shortness of breath. GI: Abdomen is round non-distended, Abd is soft and non tender X 4 quads. Reports lower abdominal pain. : No signs and/or symptoms were reported regarding the genitourinary system. EENT: No signs and/or symptoms were reported regarding the EENT system. Derm: Skin is intact, Skin is dry, Skin is normal, Skin temperature is warm. Musculoskeletal: Circulation, motion, and sensation intact. Range of motion: intact in all extremities. 16:42 Reassessment: Patient appears in no apparent distress at this time. Patient and/or jd3 family updated on plan of care and expected duration. Pain level reassessed. Patient is alert, oriented x 3, equal unlabored respirations, skin warm/dry/pink. Patient states feeling better. 17:45 Reassessment: Patient appears in no apparent distress at this time. Patient and/or jd3 family updated on plan of care and expected duration. Pain level reassessed. Patient is alert, oriented x 3, equal unlabored respirations, skin warm/dry/pink. Vital Signs: 14:15 BP 122 / 74; Pulse 106; Resp 20; Temp 100.5(TE); Pulse Ox 100% ; Weight 83.91 kg; hb Height 5 ft. 11 in. (180.34 cm); Pain 8/10; 16:42 BP 97 / 74; Pulse 97; Resp 20; Temp 98.9(O); Pulse Ox 99% on R/A; jd3 14:15 Body Mass Index 25.80 (83.91 kg, 180.34 cm) ED Course: 14:11 Patient arrived in ED. rg4 14:14 Davidson Gilliam PA is PHCP. cp 14:14 Bharat Hsieh MD is Attending Physician. cp 14:16 Triage completed. hb 14:16 Arm band placed on. hb 14:35 Jose Nielson, LISSA is Primary Nurse. jd3 14:44 Inserted saline lock: 20 gauge in right antecubital area, using aseptic technique. jd3 Blood collected. 15:05 Patient has correct armband on for positive identification. Bed in low position. Call jd3 light in reach. Side rails up X 1. Adult w/ patient. Head of bed lowered. 15:23 US Extremity Venous W Compression Mao In Process Unspecified. EDMS 15:25 XRAY Chest (1 view) In Process Unspecified. EDMS 16:08 Stone Protocol In Process Unspecified. EDMS 17:11 Sukumar Estrada MD is Referral Physician. cp 17:45 No provider procedures requiring assistance completed. IV discontinued, intact, jd3 bleeding controlled, No redness/swelling at site. Pressure dressing applied. Administered Medications: 15:04 Drug: fentaNYL (PF) 25 mcg Route: IVP; Site: right antecubital; jd3 16:00 Follow up: Response: No adverse reaction; RASS: Alert and Calm (0) jd3 15:04 Drug: Tylenol 1000 mg Route: PO; jd3 17:13 Follow up: Response: No adverse reaction jd3 17:28 Drug: Cipro (ciprofloxacin) 500 mg Route: PO; iw 17:45 Follow up: Response: Medication administered at discharge. jd3 Medication: 15:05 VIS not applicable for this client. jd3 Outcome: 17:17 Discharge ordered by MD. cp 17:45 Discharged to home ambulatory, with family. jd3 17:45 Condition: stable 17:45 Discharge instructions given to patient, family, Instructed on discharge instructions, follow up and referral plans. medication usage, Demonstrated understanding of instructions, follow-up care, medications, Prescriptions given X 1. 17:46 Patient left the ED. jd3 Signatures: Dispatcher [employer] Citlali Landa RN RN Davidson Gilliam PA PA cp Kavita Bar RN RN April English 4 Jose Nielson RN RN jd3 Corrections: (The following items were deleted from the chart) 14:17 14:15 BP 122 / 74; Pulse 106bpm; Resp 20bpm; Pulse Ox 100%; Temp 97.5F; 83.91 kg; hb Height 5 ft. 11 in.; BMI: 25.8; Pain 8/10; hb 16:46 16:42 Reassessment: Patient appears in no apparent distress at this time. Patient jd3 and/or family updated on plan of care and expected duration. Pain level reassessed. Patient is alert, oriented x 3, equal unlabored respirations, skin warm/dry/pink. awaiting results jd3 16:48 16:42 BP 97 / 74; Pulse 97bpm; Resp 20bpm; Pulse Ox 99% RA; jd3 jd3
[2022-09-20] MEDS ORDERED: CIPROFLOXACIN HCL 500 MG TAB ONE (17:28)
[2022-09-20 17:52] VITALS: BP 97/74; TEMP 98.9; O2SAT 99
--- NOTE | 2022-09-22 15:35 | EKG ---
Test Date: 2022-09-20 Test Time: 15:01:38 Livestock Inspector: REGINALD MEASUREMENT RESULTS: Intervals: Rate: 99 AK: 136 QRSD: 156 QT: 404 QTc: 518 [place]: P: 67 AK: 136 QRS: 265 T: 84 INTERPRETIVE STATEMENTS: Atrial-sensed ventricular-paced rhythm Biventricular pacemaker detected Abnormal ECG Compared to ECG 01/01/2019 03:35:27 No significant changes Electronically Signed On 09-22-22 15:30:29 [employer]CRAFT PAINTER by Brett Bejarano
== END 2022-09-20 17:46 | disposition home or self-care (01) ==
LOC: ER 14:07
DX: R19.00 Intra-abdominal and pelvic swelling, mass and lump, unspecified site (principal); Z98.890 Other specified postprocedural states; I10 Essential (primary) hypertension; Z20.822 Contact with and (suspected) exposure to COVID-19; Z88.0 Allergy status to penicillin; Z95.0 Presence of cardiac pacemaker
CPT/HCPCS: 93005; 85025; 36415; 85610; 83605; 85730; 83690; 80053; 0240U; 76377; 74176; 71045; 93970; 96374; 99284; J3010; 81003; 81015

== ENCOUNTER 2023-02-18 10:22 | Inpatient (IN) | payer OTHER ==
--- OUTSIDE RECORDS SUMMARY | 2023-02-18 10:27 | XMS REPORT | Continuity of Care Document ---
:1955 Author Organization [facility] t Address [address] [place] [address] Care Team Providers Name Role Phone VLADISLAV AGUILAR Primary Care Physician Unavailable Vladislav Aguilar Attending Clinician Unavailable Dereck Carrillo MD Attending Clinician Dusty Flaherty MD Attending Clinician Negra Shirley CRNA Attending Clinician Only, Ang Db Test Attending Clinician Unavailable Samuel Segura MD Attending Clinician SAMUEL SEGURA Attending Clinician Unavailable Nazia Tenorio RN Attending Clinician Unavailable Gwendolyn Ramirez Attending Clinician Kanchan Baires Attending Clinician GWENDOLYN HAYNES Attending Clinician Unavailable Doctor Unassigned, [place] Attending Clinician Unavailable RODRICK MURRELL Attending Clinician Unavailable Vaccine, [facility] Attending Clinician Unavailable Rodrick Murrell DO Attending Clinician Shannon Drake RN Attending Clinician Unavailable DERECK CARRILLO Admitting Clinician Unavailable Payers Payer Name Policy Type Policy Number Effective Date Expiration Date S ource Problems Condition Condition Condition Status Onset Resolution Last Treating Co mments Source Name Details Category Date Date Treatment Clinician Date 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 12-31 athy athy 00:00: Hospita 00 l No known No known Disease Unive rs active active ity of problems problems [facility] Allergies, Adverse Reactions, Alerts Allergy Allergy Status Severity Reaction(s) Onset Inactive Treating Comm ents Source Name Type Date Date Clinician Iodine Propensi Active Itching Methodi ty to 12-31 adverse 00:00: Hospita reaction 00 l s to drug Penicill Propensi Active Shortness Of Methodi in ty to Breath 12-31 adverse 00:00: Hospita reaction 00 l s to drug Shrimp Propensi Active Swelling Method i ty to 12-31 adverse 00:00: Hospita reaction 00 l s to drug Penicill Propensi Active Hives Univer s ins ty to 05-04 ity of adverse 00:00: [place] reaction 00 Medical s Branch PENICILL Drug Active Hives Univers INS Class 05-04 ity of 00:00: [place] 00 Medical Branch Penicill Propensi Active Hives Univer s ins ty to 05-04 ity of adverse 00:00: [place] reaction 00 Medical s Branch Family History Family Member Diagnosis Comments Start Date Stop Date Source Natural father [facility] Natural mother [facility] Social History Social Habit Start Date Stop Date Quantity Comments Source Alcohol intake 2023-01-05 2023-01-05 Ex-drinker [facility] 00:00:00 00:00:00 (finding) Tobacco use and 2022-12-31 2022-12-31 Smokeless tobacco [facility] exposure 00:00:00 00:00:00 non-user Exposure to 2022-10-24 2022-11-03 Yes [facility] SARS-CoV-2 00:00:00 19:47:00 [facility] (event) [facility] Sex Ass[birth year] [facility] 00:00:00 00:00:00 Smoking Status Start Date Stop Date Source Tobacco [facility] Medications Ordered Filled Start Stop Current Ordering Indication Dosage Frequency Signature Comments Components Source Medication Medication Date Date Medication? Clinician (SIG) Name Name apixaban Yes 5mg Q.5D Take 1 Methodi (ELIQUIS) 5 3-02 tablet (5 st mg tablet 17:08: mg total) Hos all 02 by mouth 2 l (two) times a day. atorvastati 2023-0 Yes 40mg QD Take 1 Meth rashaun n (LIPITOR) 3-02 tablet (40 st 40 mg 17:08: mg total) Hospita tablet 02 by mouth l daily. furosemide 2023-0 Yes 40mg QD Take 1 Metho di (LASIX) 40 3-02 tablet (40 st mg tablet 17:08: mg total) Hos all 02 by mouth l daily. sacubitriL- 2023-0 Yes 1{tbl} Q.5D Take 1 Me thodi valsartan 3-[address] (Entresto) 17:08: mouth 2 Hosp yoko 49-51 mg 02 (two) l tablet per times a tablet day. dapaglifloz 2023-0 Yes 5mg QD Take 1 Meth rsahaun in 3-02 tablet (5 st (FARXIGA) 5 17:08: mg total) H ospita mg tablet 02 by mouth l daily. metOLazone 2023-0 Yes 5mg QD Take 1 Metho di (ZAROXOLYN) 3-02 tablet (5 st 5 MG tablet 17:08: mg total) H ospita 02 by mouth l daily. allopurinoL 2023-0 Yes 300mg QD Take 1 Met hodi (ZYLOPRIM) 3-[address] 300 MG 17:08: (300 mg Hospita tablet 02 total) by l mouth daily. midodrine 2023-0 Yes 5mg Q.5D Take 1 Method i (PROAMATINE 3-02 tablet (5 st ) 5 MG 17:08: mg total) Hospit a tablet 02 by mouth 2 l (two) times a day. metoprolol 2023-0 Yes 25mg QD Take 1 Metho di tartrate 3-02 tablet (25 st (LOPRESSOR) 17:08: mg total) H ospita 25 mg 02 by mouth l tablet daily. albuterol 2023-0 Yes 2{puff} Q4H Inhale 2 M ethodi (PROAIR 3-[address] HFA) 90 17:08: every 4 Hospita mcg/actuati 02 (four) l on inhaler hours as needed for wheezing. albuterol 2023-0 Yes 2{puff} Q.25D Inhale 2 Methodi (PROAIR 3-[address] HFA) 90 17:08: (four) Hospita mcg/actuati 02 times a l on inhaler day. azithromyci Yes [id number] 250mg Take 1 Univers n 250 mg 7-03 tablet by ity of tablet 00:00: mouth [place] 00 daily. Medical Branch azithromyci Yes [id number] 250mg Take 1 Univers n 250 mg 7-03 tablet by ity of tablet 00:00: mouth [place] 00 daily. Medical Branch azithromyci Yes [id number] 250mg Take 1 Univers n 250 mg 7-03 tablet by ity of tablet 00:00: mouth [place] 00 daily. Medical Branch azithromyci Yes [id number] 250mg Take 1 Univers n 250 mg [...] [id number] 5mL Take 5 mL Univers ifenesin 7-03 07-11 by mouth ity of 10-100 mg/5 00:00: 04:59 every 6 [place] mL oral 00 :00 (six) Medical solution hours as Branch needed for Cough for up to 7 days. Indication s: acute pain Immunizations Ordered Filled Immunization Date Status Comments [facility] e Immunization Name Name SARS-COV-2 COVID-19 2022-04-07 Completed Unive rsity of MODERNA 0.25ML 00:00:00 [facility] BOOSTER VACCINE Branch SARS-COV-2 COVID-19 2022-04-07 Completed Unive rsity of MODERNA 0.25ML 00:00:00 [facility] BOOSTER VACCINE Branch SARS-COV-2 COVID-19 2022-04-07 Completed Unive rsity of MODERNA 0.25ML 00:00:00 [facility] BOOSTER VACCINE Branch SARS-COV-2 COVID-19 2022-04-07 Completed Unive rsity of MODERNA 0.25ML 00:00:00 [facility] BOOSTER VACCINE [place] Vital Signs Vital Name Observation Time Observation Value Comments Source Systolic blood 2022-05-04 23:40:00 119 mm[Hg] Univer sity of pressure [facility] Diastolic blood 2022-05-04 23:40:00 71 mm[Hg] Unive rsity of pressure [facility] Heart rate 2022-05-04 23:40:00 108 /min [facility] Body temperature 2022-05-04 23:40:00 37.83 [facility] 2022-05-04 23:40:00 25 /min [facility] Body height 2022-05-04 23:40:00 180.3 cm [facility] Body weight 2022-05-04 23:40:00 90.583 kg [facility] BMI 2022-05-04 23:40:00 27.85 kg/m2 [facility] Oxygen saturation in 2022-05-04 23:40:00 98 /min [facility] Arterial blood by [facility] Pulse oximetry [place] Systolic blood 2022-12-31 22:00:00 131 mm[Hg] [facility] pressure Diastolic blood 2022-12-31 22:00:00 80 mm[Hg] [facility] pressure Heart rate 2022-12-31 22:00:00 87 /min [facility] Respiratory rate 2022-12-31 22:00:00 17 /min [facility] Oxygen saturation in 2022-12-31 22:00:00 100 /min [facility] Arterial blood by Pulse oximetry Body temperature 2022-12-31 17:30:00 36.44 Anjali [facility] Body height 2022-12-31 12:01:00 180.3 cm [facility] Body weight 2022-12-31 12:01:00 89.721 kg [facility] BMI 2022-12-31 12:01:00 27.59 kg/m2 [facility] Procedures Procedure Date / Time Performing Clinician Source Performed POC GLUCOSE 2022-12-31 21:01:00 GerardoDereck spital ECG PRE/POST OP 2022-12-31 18:26:43 [facility]Dandy [facility] POC GLUCOSE 2022-12-31 18:22:00 [facility]Dandy [facility] XR CHEST 1 VW PORTABLE 2022-12-31 18:05:00 [facility] EP CARDIAC MODULATOR 2022-12-31 17:05:26 [facility] INSERT/REPLACE TYPE AND SCREEN 2022-12-31 12:18:00 Dandy Carrillo [facility] POC GLUCOSE 2022-12-31 12:10:00 [facility]Dadny [facility] ECG 12-LEAD 2022-12-31 11:53:04 Gerardo [facility] COVID-19 QUALITATIVE 2022-12-29 18:52:00 [facility] RT-PCR COMPREHENSIVE METABOLIC 2022-12-29 18:52:00 [facility] PANEL CBC WITH PLATELET AND 2022-12-29 18:52:00 [facility] DIFFERENTIAL MAGNESIUM LEVEL 2022-12-29 18:52:00 Gerardo [facility] PROTHROMBIN TIME WITH 2022-12-29 18:52:00 [facility] INR ESTIMATED GFR 2022-12-29 18:52:00 Gerardo [facility] spital XR CHEST 2 VW 2022-05-05 00:04:00 Gwendolyn Haynes [facility] Plan of Care Planned Activity Planned Date Details Comments Source Future Scheduled 2023-02-18 Hepatitis C screening [facility] Test 10:26:44 (procedure) [code = 457187304] Future Scheduled 2023-02-18 COLONOSCOPY SCREENING [facility] Test 10:26:44 [code = COLONOSCOPY SCREENING] Future Scheduled 2023-02-18 SHINGLES VACCINES (1 Met [facility] Test 10:26:44 of 2) [code = SHINGLES VACCINES (1 of 2)] Future Scheduled 2023-02-18 INFLUENZA VACCINE Method [facility] Test 10:26:44 [code = INFLUENZA VACCINE] Encounters Start End Encounter Admission Attending Care Care Encounter Source Date/Time Date/Time Type Type Clinicians Facility Department ID 2022-06-[address] [facility] [id number] Common 09:10:17 Vladislav [facility] 2022-05-14 Outpatient Lauren [facility] [id number] Common 09:11:03 Vladislav [facility] 2022-12-31 2022-12-31 Hospital [facility], 1.2.840.1 [id number] Methodi 05:43:00 17:08:00 Encounter Dereck [address]188.1.[address] 3.430.2.7 Hospit a .3.800986 l .8 2022-12-31 2022-12-31 Anesthesia Reynold Dustybony Smiley 1.2.840.1 [id number] Methodi 08:15:00 11:36:00 Event Negra Shirley [address]1619.1.[address] 3.430.2.7 Hospit a .3.952435 l .8 2022-12-31 2022-12-31 Surgery Gerardo, 1.2.840.1 [id number] Methodi 08:15:00 11:20:[address] 3.430.2.7 Hospit a .3.188917 l .8 2022-12-31 2022-12-31 Travel 1.2.840.1 1.2.560.850 [id number] Methodi 00:00:00 00:00:[address] 3.430.2.7 0.2.7.3.698 Ho spita .3.922347 084.8 l .8 2022-12-31 2022-12-31 Outpatient GERARDO, [facility] [id number] [place] 00:00:00 00:00:00 NADIM [address] 2022-12-29 2022-12-29 Lab Gerardo, 1.2.840.1 [id number] Methodi 12:25:00 12:30:[address] 3.430.2.7 Hospit a .3.430481 l .8 2022-12-29 2022-12-29 Travel 1.2.840.1 1.2.212.393 [id number] Methodi 00:00:00 00:00:[address] 3.430.2.7 0.2.7.3.698 Ho spita .3.326201 084.8 l .8 2022-12-29 2022-12-29 Outpatient GERARDO, [facility] [id number] [place] 00:00:00 00:00:00 NADIM [address] 2022-12-15 2022-12-15 Community Gerardo, 1.2.840.1 [id number] Methodi 00:00:00 00:00:00 Orders Nadim 64526.1.[address] 3.430.2.7 Hospit a .3.993668 l .8 2022-11-03 2022-11-03 Laboratory Only, Ang Db Test [facility] 1.2.8 40.114 [id number] Univers 19:45:00 20:00:00 Only Samuel Segura [facility] 350.1.13.10 [facility] 4.2.7.2.686 Isidro as SAE?BLEA [id number] [address] MEDICAL OFFICE BUILDING 2022-11-03 2022-11-03 Outpatient R ALDO [facility] [id number] Univers 19:45:00 19:45:00 SAMUEL [facility] 2022-08-13 2022-08-13 Travel 1.2.840.1 1.2.596.861 [id number] Methodi 00:00:00 00:00:[address] 3.430.2.7 0.2.7.3.698 Ho spita .3.260691 084.8 l .8 2022-05-05 2022-05-05 Telephone Jona Nazia AFIA 1.2.840.114 [id number] Univers 00:00:00 00:00:00 RHONDA 350.1.13.10 it y of HOSPITAL 4.2.7.2.686 Isidro as [id number] [facility] [address] [place] 2022-05-04 2022-05-04 [facility] 1.2.840.114 [id number] Univers 18:54:07 23:59:00 Encounter [facility] 350.1.13.10 ity of [place] 4.2.7.2.686 Isidro as SAE?BLEA [id number] [facility] [address] [place] MEDICAL OFFICE [facility] 2022-05-04 2022-05-04 Urgent [facility] 1.2.840.114 [id number] Univers 18:40:00 19:04:20 [facility] 350.1.13.10 ity of [place] 4.2.7.2.686 Isidro as SAE?BLEA [id number] [facility] [address] [facility] OFFICE [facility] 2022-05-04 2022-05-04 Outpatient R DALLAS [facility] [id number] Univers 18:40:00 19:04:20 GWENDOLYN ity [facility] 2022-05-04 2022-05-04 Outpatient R DALLAS [facility] [id number] Univers 18:54:07 18:54:07 GWENDOLYN ity of [facility] 2022-05-04 2022-05-04 Orders Doctor OREILLY 1.2.840.114 [id number] Univers 00:00:00 00:00:00 Only Unassigned, RHONDA 350.1.13.10 ity of [place] [facility] 4.2.7.2.686 Isidro as [id number] [facility] [address] [place] 2022-04-08 2022-04-08 Outpatient Gisela MURRELL [facility] [id number] Univers 08:30:00 08:30:00 RODRICK sotomayor [facility] 2022-04-07 2022-04-07 Outpatient Gisela MURRELL [facility] [id number] Univers 15:30:00 16:06:14 RODRICK sotomayor [facility] 2022-04-07 2022-04-07 Imm/Inj Vaccine, [facility] 1.2.840.114 [id number] Univers 15:30:00 15:40:00 Visit Rodrick Murrell 350.1.13 .10 ity [facility] 4.2.7.2.686 [place] [id number] Or vandana [facility] [address] [place] BUILDING 2021-09-09 2021-09-09 Outpatient Gisela MURRELL [facility] [id number] Univers 08:50:00 08:50:00 [facility] 2021-07-15 2021-07-15 Letter AFIA Drake 1.2.840.114 [id number] Univers 00:00:00 00:00:00 (Out) Shannon ELLIS 350.1.13.10 it y of [facility] 4.2.7.2.686 Isidro as [id number] [address] 2021-07-13 2021-07-13 Laboratory Only, Ang Db Test [facility] 1.2.8 40.114 [id number] Univers 19:34:50 19:49:50 Only Gwendolyn Haynes [facility] 350.1.13.10 ity [facility] 4.2.7.2.686 Isidro as Sae?Blea [id number] Or diclara kney [address] [place] [address] 2021-07-13 2021-07-13 Outpatient Gisela HAYNES [facility] [id number] Univers 19:30:00 19:30:00 [facility] Results Test Description Test Time Test Comments Results Result Comments Source ECG Pre/Post Op-Tomorrow 2022-12-31 22:33:35 Test Item Value Reference Range Interpretation Comme nts Ventricular rate (test code = 253) 81 Atrial rate (test code = 255) 81 VA interval (test code = 266) 124 QRSD interval (test code = 260) 172 QT interval (test code = 264) 466 QTC interval (test code = 265) 541 P axis 1 (test code = 267) 73 QRS axis 1 (test code = 268) 251 T wave axis (test code = 270) 98 EKG impression (test code = 273) ^^^ Poor data quality, interpretat ion may be adversely upzfrtbp-Aacwdz-qhsyjt ventricular-paced rhythm-Biventricular pacemaker detected-Abnormal ECG-In automated comparison with ECG of 31-DEC-2022 05:53,-Vent. rate has decreased BY 5 BPM- [facility] [id number] 21:02:00 Test Item Value Reference Range Interpretation Comments POC glucose (test code 300 mg/dL 65-99 H Opera tor Name: = 21485-1) Alvarez CarpenterKwamegaeljacinto ID : [id number] able: No Action Neede d Lab Interpretation Abnormal (test code = 24672-6) [facility] 12 [id number] 12:54:20 Test Item Value Reference Range Interpretation Comments Ventricular rate (test 86 code = 253) Atrial rate (test code 86 = 255) VA interval (test code 150 = 266) QRSD interval (test 172 code = 260) QT interval (test code 446 = 264) QTC interval (test code 533 = 265) P axis 1 (test code = 87 267) QRS axis 1 (test code = 270 268) T wave axis (test code 95 = 270) EKG impression (test Atrial-sensed code = 273) ventricular-paced rhythm-Abnormal ECG-In automated comparison with ECG of 22-SEP-2014 08:17,-Electronic ventricular pacemaker has replaced Sinus rhythm[id number] 23:04:43 Test Item Value Reference Interpretation Comments Range Interpretation Negative results do (test code = not preclude COVID-19 2369530) infection and should not be used asthe sole basis for treatment or other patient management decisions. Negativeresults must be combined with clinical observations, patient history, andepidemiological information. COVID-19 Not-Detected Not-Detected DISCLAIMER:This qualitative RT-PCR test was result (test code performed using = 34791-6) the Lukas isreal SARS-CoV-2 Assa y ([employer]). This assay is available for i n vitro diagnosti c use under Food and Drug Administration (FDA) Emergency Use Authorizati on (EUA) and has been verified f or clinical use by the [facility]. Information on the FDA policy for diagnostic tests for coronavirus disease- 2019 i s available at:https://www. fd a.gov/medical-d ev ices/emergency- si tuations-medica l- devices/faqs-di ag nostic-testing- sa rs-cov-2It is critical that health care providers and patients review the applicable fact sheet(s) i n interpreting or understanding t he test results th at are available upon request.JENNY LENZ GY:This assay utilizes reagen ts for nucleic aci d extraction, amplification, and real-time reverse mixing machine tender cork gasket polymerase augusta n reaction. COVID-19 See link below for PDF Case Number: qualitative RT-PCR Lab Report [id number] PDF (test code = 7070) [facility] RNA [Presence] in Respiratory specimen by LORETO with probe [id number] 17:04:43 Test Item Value Reference Range Interpretation Comments SARS-CoV-2 (COVID-19) RNA Not detected [Presence] in Respiratory specimen by LORETO with probe detection (test code = 96848-0) Whether patient is employed in a Unknown healthcare setting (test code = 27213-0) Whether the patient has symptoms Unknown related to condition of interest (test code = 34998-3) Whether the patient was Unknown hospitalized for condition of interest (test code = 30577-7) Whether the patient was admitted Unknown to intensive care unit (ICU) for condition of interest (test code = 25523-1) Whether patient resides in a Unknown congregate care setting (test code = 23222-3) status (test code = Unknown 18993-1) Date and time of symptom onset Unknown (test code = 61519-1) [facility]
[2023-02-18] MEDS ORDERED: POLYETHYL GLY 3350 17 GM/DOSE PO PRN (12:00)
[2023-02-18] MEDS ORDERED: ACETAMINOPHEN 325 MG TABLET PO PRN (12:00)
[2023-02-18] MEDS ORDERED: ONDANSETRON 4 MG/2 ML VIAL IV PRN (12:00)
[2023-02-18] MEDS ORDERED: DIPHENHYDRAMINE 25 MG TAB/CAP PO PRN (12:00)
[2023-02-18] MEDS ORDERED: LOPERAMIDE HCL 2 MG CAPSULE PO PRN (12:00)
[2023-02-18] MEDS ORDERED: ONDANSETRON 4 MG (ODT) TAB PO PRN (12:00)
[2023-02-18 12:32] LABS: Absolute Lymphocytes (CBC) 0.5 K/uL (0.7-4.9); Hematocrit 35.2 % (39.6-49.0); Lymphocytes % 15.1 % (15.3-44.8); MCV 100.7 fL (80-100); MPV 8.7 fL (7.6-11.3); RBC Red Blood Cell Count 3.49 M/uL (4.33-5.43)
[2023-02-18 12:48] LABS: Protime INR 1.3
[2023-02-18] MEDS ORDERED: D50W 25 GM/50 ML SYRINGE IV PRN (13:11)
[2023-02-18] MEDS ORDERED: GLUCAGON 1 MG/VIAL IM PRN (13:11)
[2023-02-18 13:21] LABS: Albumin 2.9 g/dL (3.4-5.0); Bilirubin Direct 0.7 mg/dL (0-0.2); Bilirubin Total 1.4 mg/dL (0.2-1.0); Magnesium 2.2 mg/dL (1.6-2.4); Phosphorus 2.1 mg/dL (2.5-4.9); Protein, Total 6.9 g/dL (6.4-8.2); Thyroid Stimulating Hormone 1.37 uIU/mL (0.358-3.740)
[2023-02-18] MEDS ORDERED: D10W 125 ML IV PRN (13:24)
--- NOTE | 2023-02-18 14:00 | RAD REPORT ---
EXAM DESCRIPTION: RAD - Chest Pa And Lat (2 Views) - 02/18/2023 1:21 pm CLINICAL HISTORY: CHF, congestive cardiomyopathy COMPARISON: Chest Single View dated 09/20/2022; Chest Pa And Lat (2 Views) dated 03/06/2022; Chest Pa And Lat (2 Views) dated 09/09/2021; Chest Pa And Lat (2 Views) dated 10/11/2020 FINDINGS: Lines: Pacemaker/ICD. Lungs: Mild nonspecific linear opacities are present at the right lung base. No edema is identified. No consolidation. Pleural: No significant pleural effusions or pneumothorax. Cardiac: Cardiomegaly. Mediastinum: Within normal limits. Bones: No acute fractures. Other: None IMPRESSION: Mild nonspecific linear opacities at the right lung base likely representing subsegmenta l atelectasis. No edema or consolidative pneumonia.
[2023-02-18] MEDS: FUROSEMIDE 100 MG in NA CHLORIDE 0.9% 90 ML IV SCH (14:44)
--- NOTE | 2023-02-18 17:30 | RAD REPORT ---
EXAM DESCRIPTION: CTChest Abd Pelvis Wo Con - 02/18/2023 1:36 pm CLINICAL HISTORY: chf, congestive cardiomyopathy COMPARISON: [place] Protocol dated 09/20/2022; Abdomen Exam Complete dated 12/18/2022 TECHNIQUE: CT of the chest, abdomen, and pelvis was performed. All CT scans are performed using dose optimization technique as appropriate and may include automated exposure control or mA/KV adjustment according to patient size. FINDINGS: Thorax: Chest Wall: No abnormal mass upper chest wall pacemaker is. Lungs: Mild chronic interstitial lung changes in the lower lobes and right middle lobe. No definite a cute process identified. Pleura: No effusions or pneumothorax. Sommer/Mediastinum: No lymphadenopathy. Aorta/Pulmonary Arteries: Unremarkable Heart: Moderate cardiomegaly. Abdomen/Pelvis: Liver: No acute abnormality or suspicious lesions. Biliary: No biliary ductal dilatation. Stomach: No significant focal abnormality. Duodenum: No significant focal abnormality. Pancreas: No significant abnormality. Spleen: No significant abnormality. Adrenal: No suspicious lesions. Kidney/ureter: No hydronephrosis. No renal calculi. Retroperitoneum: No retroperitoneal adenopathy. Vascular: No aneurysm. Atherosclerosis. Bowel: No significant focal abnormality. Peritoneum: Mild to moderate ascites. Small fat containing umbilical hernia. Bladder: Grossly unremarkable. Reproductive: No adnexal masses. Bones: No acute fracture. Chronic L1 compression fracture. Grade 1 anterolisthesis of L5 on S1. Multi level degenerative changes are present in the spine. Other: n/a IMPRESSION: Generalized anasarca which may be related to cardiogenic factors. Mild to moderate ascit es noted. No acute findings otherwise identified .
[2023-02-18] MEDS: INSULIN -REGULAR HUMAN 50 UNIT/0.5 ML ML SQ SCH ×2 (18:04→22:09)
[2023-02-18] MEDS: METOPROLOL TAR 25 MG TAB PO SCH (20:25)
[2023-02-18] MEDS: MIDODRINE HCL 5 MG TABLET PO SCH (20:25)
[2023-02-18] MEDS: APIXABAN 5 MG TABLET PO SCH (20:25)
[2023-02-18] MEDS: ATORVASTATIN 40 MG TAB PO SCH (20:25)
[2023-02-18] MEDS: SACUBITRIL/VALSARTAN 49/51 MG TAB PO SCH (20:25)
[2023-02-19 03:41] LABS: Absolute Lymphocytes (CBC) 0.4 K/uL (0.7-4.9); Hematocrit 33.1 % (39.6-49.0); MCV 101.3 fL (80-100); MPV 8.5 fL (7.6-11.3); RBC Red Blood Cell Count 3.27 M/uL (4.33-5.43)
[2023-02-19] MEDS: INSULIN -REGULAR HUMAN 50 UNIT/0.5 ML ML SQ SCH ×4 (07:30→20:41)
--- NOTE | 2023-02-19 08:29 | EKG ---
Test Date: 2023-02-18 Test Time: 13:01:37 Nuclear Engineer: AMINA MEASUREMENT RESULTS: Intervals: Rate: 87 ND: 142 QRSD: 176 QT: 452 QTc: 543 Milner: P: 73 ND: 142 QRS: 238 T: 92 INTERPRETIVE STATEMENTS: Poor data quality, interpretation may be adversely affected Electronic ventricular pacemaker Compared to ECG 09/20/2022 15:01:38 Atrial-sensed ventricular-paced complex(es) or rhythm no longer present Electronically Signed On 02-19-23 08:27:35 CDT by Sae Aguilera
[2023-02-19] MEDS ORDERED: HOME MED 1 EA UNK (Dapagliflozin Propanediol [Farxiga] 5 MG Tablet) PO SCH (09:00)
[2023-02-19] MEDS ORDERED: allopurinoL 300 MG TAB PO SCH (09:00)
[2023-02-19] MEDS: FUROSEMIDE 100 MG in NA CHLORIDE 0.9% 90 ML IV SCH (09:03)
[2023-02-19] MEDS: METOPROLOL TAR 25 MG TAB PO SCH ×2 (09:09→20:40)
[2023-02-19] MEDS: MIDODRINE HCL 5 MG TABLET PO SCH ×2 (09:10→20:40)
[2023-02-19] MEDS: SACUBITRIL/VALSARTAN 49/51 MG TAB PO SCH ×2 (09:10→20:40)
[2023-02-19] MEDS: APIXABAN 5 MG TABLET PO SCH ×2 (09:13→20:40)
--- NOTE | 2023-02-19 12:40 | CON ---
Date of Consultation: 02/19/2023 Reason For Consultation: Elevated BUN and creatinine, anasarca, fluid management. History Of Present Illness: This is a pleasant 67-year-old gentleman with significant past medical history of PE back in 2014, hypertension, hyperlipidemia, nonischemic cardiomyopathy status post ICD, the patient came to the hospital because of increased swelling, elevation in BUN and creatinine, found to have anasarca. For that reason, we have been consulted. Lab showed creatinine of 1.8 and 1.9 with GFR 40. Reviewing the record for the patient back in September 2022, creatinine 1.9 and GFR 40. The patient denied taking any nonsteroidal. No recent hospitalization. No recent IV contrast. The patient complaining from orthopnea and increased leg swelling. The patient denied taking any nonsteroidal. Past Medical History: Includes; 1. Nonischemic cardiomyopathy. 2. Hypertension. 3. PE back in 2014. 4. Hyperlipidemia. 5. Anasarca. Allergies: TO PENICILLIN, A RASH. Past Surgical History: Includes ICD. Social History: Denied smoking, denied drinking, denied drugs abuse. Family History: Positive for hypertension. Review of Systems: Head and Neck: No red eye. No ear pain. GI: No nausea. No vomiting. : No polyuria. No dysuria. No hematuria. Assistant Manager/Embalmer: Not applicable. Respiratory: Has shortness of breath. Has orthopnea. Cardiovascular: The patient has palpitation. Has leg swelling. Has orthopnea. Endocrine: No polydipsia. Skin: No rash. Neuro: Has low back pain. Musculoskeletal: Generalized fatigue. Physical Examination: Vital Signs: When I saw the patient; blood pressure 102/66, pulse of 88, afebrile. Chest: Crackles bilateral base. Heart: S1, S2. Systolic murmur. Abdomen: Soft, ascites. Extremities: +3 edema. Neuro: Alert. No focality. No asterixis. Laboratory Data: WBC 3.3, H and H 10.8/33.1, platelets 120. Sodium 137, potassium 4, bicarb 32, BUN 87, creatinine 1.8, GFR of 40, calcium 9, magnesium of 2. Albumin 2.9, corrected calcium is 9.8. Urinalysis; +2 protein, negative for infection. Current Medications: The patient on include Eliquis 5 mg b.i.d., atorvastatin, metoprolol 25 b.i.d., valsartan, Entresto, Tylenol, Lasix drip, loperamide, Allopurinol 300. Assessment And Plan: 1. Chronic kidney disease, stage 3B, mostly secondary to cardiorenal syndrome, proteinuric, not quantified, over volume, looked to me around his baseline. Obstructive uropathy has been ruled out. I am going to go ahead and send for full workup given the history of proteinuria and PE before to rule out any autoimmune disease and we will follow up. The patient currently on Lasix drip. I am going to increase it to 10 mg per hour and we will follow up. 2. With the presence of hypoglycemia, I am going to go ahead and send for cortisol level. Continue Entresto and we will monitor. 3. Hypertension, currently blood pressure on the lower side. We will utilize blood pressure for more diuresis. Increase Lasix drip, continue Entresto. We will consider adding spironolactone after stabilizing the patient. 4. Hyponatremia, dilutional. Continue diuresis. 5. Congestive heart failure with exacerbation. Follow up echocardiogram and we will follow up with Cardiology. Continue Lasix. 6. Anasarca mostly secondary to cardiorenal syndrome. We will diurese as above. We will send for TSH and PC ratio and we will follow up. Thank you, Dr. Aguilar for allowing us to participate in the care of your patient. Time spent examining the patient [id number], reviewing data, lab and radiology, placing order, discussing the case with the patient, discussing the case with the steam shovel engineer including nurse more than 65 minutes RALPH Voice ID: [id number] Report ID: [id number] LEILANI
[2023-02-19 14:00] LABS: UR PROTEIN 10.6 mg/dL (<11.9); Urine Protein/Creatinine Ratio 0.34 ratio (<0.15)
--- NOTE | 2023-02-19 14:02 | ECHO ---
HEIGHT: 5 ft 11 in WEIGHT: 188 lb 0 oz DATE OF STUDY: 02/19/[address]: Vladislav Aguilar MD 2-DIMENSIONAL: YES M.MODE: YES DOPPLER: YES COLOR FLOW: YES TDS: PORTABLE: YES DEFINITY: BUBBLE STUDY: DIAGNOSIS: CONGESTIVE HEART FAILURE, CARDIOMYOPATHY CARDIAC HISTORY: CATHERIZATION: YES SURGERY: NO PROSTHETIC VALVE: NO PACEMAKER: YES MEASUREMENTS (cm) DIASTOLIC (NORMALS) SYSTOLIC (NORMALS) IVSd 1.1 (0.6-1.2) LA Diam 4.5 (1.9-4.0) LVEF 19% LVIDd 6.8 (3.5-5.7) LVIDs 6.2 (2.0-3.5) %FS 9% LVPWd 1.2 (0.6-1.2) Ao Diam 2.7 (2.0-3.7) 2 DIMENSIONAL ASSESSMENT: RIGHT ATRIUM: NORMAL LEFT ATRIUM: DILATED RIGHT VENTRICLE: AUTOMATIC INTERBAL CARDIAC DEFIBRILLATOR LEFT VENTRICLE: TRICUSPID VALVE: NORMAL MITRAL VALVE: PULMONIC VALVE: NORMAL AORTIC VALVE: PERICARDIAL EFFUSION: NONE AORTIC ROOT: LEFT VENTRICULAR WALL MOTION: SEVERE GLOBAL HYPOKINESIS DOPPLER/COLOR FLOW: MILD MITRAL REGURGITATION, TRICUSPID REGURGITATION - NORMAL RIGHT VENTRICULAR SYSTOLIC PRESSURE. COMMENTS: 1. EJECTION FRACTION 15-19% 2. SEVERE GLOBAL HYPOKINESIS 3. AUTOMATIC INTERBAL CARDIAC DEFIBRILLATOR/ BIVENTRICULAR TECHNOLOGIST: EZRA WELCH
[2023-02-19 14:05] LABS: Specific Gravity 1.008 (1.005-1.030); Urine Bacteria <20 /HPF (<20); Urine Bilirubin NEGATIVE (Negative); Urine Blood Negative (Negative); Urine Clarity Clear (Clear); Urine Color Light-Yellow (Yellow); Urine Glucose NEGATIVE (Negative); Urine Mucus Slight /HPF (None Seen); Urine Protein NEGATIVE (Negative); Urine RBC <5 /HPF (None Seen); Urine Urobilinogen Normal (Normal)
[2023-02-19 14:24] LABS: UR MICROALBUMIN 3.1 mg/dL (< 1.9)
[2023-02-19 15:25] VITALS: BMI 25.7
--- NOTE | 2023-02-19 17:29 | P.PN ---
Subjective Date of Service: 02/19/23 Subjective: Improving Patient's chart has been reviewed. Signout received from primary care provider. Patient states he feels much better. Diuresing pretty effectively. 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 He does have extensive anasarca and will continue with diuresis him. Will get to an albumin and Lasix drip tonight. Hopefully will get about 10 more pounds off him and we can discharge him in the morning. Plan to discharge in a.m. Review of Systems 10-point ROS is otherwise unremarkable Physical Examination - Vital Signs Temperature: 97.1 F Blood Pressure: 88/62 Pulse: 67 Respirations: 12 Pulse Ox (%): 97 - Physical Exam General: Alert, In no apparent distress, Oriented x3 Respiratory: Clear to auscultation bilaterally Cardiovascular: Regular rate/rhythm, Normal S1 S2, Systolic murmur Gastrointestinal: Normal bowel sounds, Soft and benign, Non-distended, No tenderness Musculoskeletal: No clubbing, Swelling Neurological: Sensation intact, Cranial nerves 3-12 intact - Studies Laboratory Data (last 24 hrs) 02/19/23 02:44: Sodium 137, Potassium 4.0, BUN 87 H, Creatinine 1.80 H, Glucose 57 L, Magnesium 2.0 02/19/23 02:44: WBC 3.30 L, Hgb 10.8 L, Hct 33.1 L, Plt Count 120 L Medications List Reviewed: Yes Assessment & Plan - Problems (Diagnosis) (1) Cardiomyopathy Status: Acute (2) Hypoalbuminemia Status: Acute (3) Anasarca Status: Acute (4) CKD (chronic kidney disease) Status: Acute (5) Cardiac cirrhosis Status: Acute - Plan PLAN: 1. Echocardiogram pending 2. Benefit from Entresto 3. Continue diuresing(IV lasix and albumin drip) 4. Cardiology/Nephrology consultation appreciated 5. Strict I's and O's 6. Daily wts 7. Monitor renal function 8. Poor prognosis snf with multiorgan complications from cardiomyopathy 9. Education regarding diet and treatment of congestive heart failure Discharge Plan: Home Plan to discharge in: Greater than 2 days - Advance Directives Does patient have a Living Will: No Does patient have a Durable POA for Healthcare: No Critical Care: No Time Spent Managing PTS Care (In Minutes): 35
[2023-02-19] MEDS ORDERED: ALBUMIN HUMAN 25% 50 ML IV ONE (18:00)
[2023-02-19] MEDS: ATORVASTATIN 40 MG TAB PO SCH (20:40)
[2023-02-19] MEDS ORDERED: FUROSEMIDE 100 MG in NA CHLORIDE 0.9% 90 ML IV SCH (22:00)
[2023-02-19 23:28] VITALS: O2SAT 95
[2023-02-20 03:49] LABS: Protime INR 1.72
[2023-02-20 03:58] LABS: Absolute Lymphocytes (CBC) 0.4 K/uL (0.7-4.9); Hematocrit 36.2 % (39.6-49.0); Lymphocytes % 11.8 % (15.3-44.8); MCV 100.4 fL (80-100); RBC Red Blood Cell Count 3.61 M/uL (4.33-5.43)
[2023-02-20 04:38] LABS: Albumin 3.3 g/dL (3.4-5.0); Bilirubin Total 1.4 mg/dL (0.2-1.0); Phosphorus 2.1 mg/dL (2.5-4.9); Potassium 3.8 mEq/L (3.5-5.1); Protein, Total 7.4 g/dL (6.4-8.2); Uric Acid 8.8 mg/dL (3.5-7.2)
[2023-02-20 04:39] LABS: Ferritin 189.1 ng/mL (26-388); Thyroid Stimulating Hormone 1.62 uIU/mL (0.358-3.740)
[2023-02-20 05:01] LABS: Rheumatoid Factor NEG (NEG)
[2023-02-20] MEDS ORDERED: POTASSIUM CL SA 10 MEQ TAB PO ONE (09:00)
--- NOTE | 2023-02-21 19:18 | CON ---
Date of Consultation: 02/19/2023 Admitting Physician: Dr. Aguilar. Reason For Consultation: Congestive heart failure. History Of Present Illness: Mr. Moss is very well known to me from previous office visits and admiss ions. He is 67, had chronic systolic, severe dilated cardiomyopathy with ejection fraction less than 20%. He has had PSYCHODRAMATIST therapy, biventricular AICD pacemaker. He has a history of diabetes, dyslipide mayelin, hypertension, and orthostatic hypotension. He comes in with congestive heart failure, mildly el evated liver function tests, glucose of 170, creatinine 1.9. Rheumatological workup is still pending . Echocardiogram showed an ejection fraction less than 20%. The patient by the time I saw him loreto flood diuresed significantly with IV Lasix and wants to go home. Past Medical History: As stated above. Allergies: HE IS ALLERGIC TO PENICILLIN. Review of Systems: Negative. Social History: Negative. Family History: Negative. Medications: Include Entresto, Coreg, Eliquis, Lipitor, insulin, Lasix, metolazone, midodrine. Physical Examination: Vital Signs: Stable. Afebrile. HEENT: Negative. Neck: Supple. No bruit. Chest: Actually is clear. Cardiac: Revealed S3 gallops. Regular rhythm and rate. Abdomen: Benign. Extremities: Revealed trace edema. Diagnostic Data: As stated above. Impression And Plan: Acute on chronic systolic congestive heart failure, ejection fraction less than 20%. The patient is on appropriate therapy. He has diuresed well. He wants to go home and I agree with that. The case was discussed with Dr. Douglas who is covering for Dr. Aguilar. He has a history of pacemaker, PSYCHODRAMATIST, biventricular AICD, insulin for diabetes, orthostatic hypotension on midodrine that is well controlled. He has renal insufficiency, diabetes because of his congestive heart failure. I recommended absolutely no change in therapy. Dr. Aguilar had mentioned the possibility of hospice care down the road. That would be discussed with Dr. Aguilar and the patient. For now, he can go home and we will see him in the office soon. ABDIRIZAK/DONIS Voice ID: [id number] Report ID: [id number]
[2023-02-24 12:35] LABS: Hepatitis C Virus RNA (PCR)log <1.18 log IU/mL
[2023-02-26 14:35] VITALS: BP 88/62; TEMP 97.1
--- NOTE | 2023-02-26 14:42 | P.DS ---
Discharge Date: 02/20/23 Disposition: ROUTINE DISCHARGE Discharge Condition: GOOD Consultations: Cardiology - Problems (1) Cardiomyopathy Status: Acute (2) Hypoalbuminemia Status: Acute (3) Anasarca Status: Acute (4) CKD (chronic kidney disease) Status: Acute (5) Cardiac cirrhosis Status: Acute Brief History of Present Illness: Patient is a 67-year-old gentleman who came to the hospital with diffuse anasarca. He was admitted by her primary care provider. Patient had an ejection fraction of 19%. Patient was started on intravenous Lasix. Patient will be admitted to the hospital for further workup. Hospital Course: Patient was diuresed quite extensively. We gave him intravenous Lasix along with IV albumin. He lost about 10lbs during hospitalization. Patient was admitted on the evening of February 18. He did have extensive anasarca and we placed him on an albumin and Lasix drip. He was diuresed quite extensively and we lost about 10 pounds. Patient was discharged with outpatient follow up. Vital Signs/Physical Exam: Temp Pulse Resp BP Pulse Ox 97.1 F 67 12 88/62 L 97 02/26/23 14:35 02/26/23 14:35 02/26/23 14:35 02/26/23 14:35 02/26/23 14:35 General: Alert, In no apparent distress, Oriented x3 Laboratory Data at Discharge: WBC Cancelled 02/20/23 05:00 Hgb Cancelled 02/20/23 05:00 Hct Cancelled 02/20/23 05:00 Plt Count Cancelled 02/20/23 05:00 PT 18.9 SECONDS (9.5-12.5) H 02/20/23 03:09 INR 1.72 02/20/23 03:09 APTT 32.6 SECONDS (24.3-36.9) 02/18/23 12:07 Sodium 134 mEq/L (136-145) L 02/20/23 03:09 Sodium Cancelled 02/20/23 03:09 Potassium 3.8 mEq/L (3.5-5.1) 02/20/23 03:09 Potassium Cancelled 02/20/23 03:09 BUN 88 mg/dL (7-18) H 02/20/23 03:09 BUN Cancelled 02/20/23 03:09 Creatinine 1.89 mg/dL (0.70-1.30) H 02/20/23 03:09 Creatinine Cancelled 02/20/23 03:09 Glucose 176 mg/dL (74-106) H 02/20/23 03:09 Glucose Cancelled 02/20/23 03:09 Uric Acid 8.8 mg/dL (3.5-7.2) H 02/20/23 03:09 Uric Acid Cancelled 02/20/23 03:09 Phosphorus 2.1 mg/dL (2.5-4.9) L 02/20/23 03:09 Phosphorus Cancelled 02/20/23 03:09 Magnesium 2.0 mg/dL (1.6-2.4) 02/20/23 03:09 Magnesium Cancelled 02/20/23 03:09 Total Bilirubin 1.4 mg/dL (0.2-1.0) H 02/20/23 03:09 AST 68 U/L (15-37) H 02/20/23 03:09 ALT 73 U/L (16-61) H 02/20/23 03:09 Alkaline Phosphatase 219 U/L (45-117) H 02/20/23 03:09 Triglycerides 48 mg/dL (<150) 02/20/23 03:09 Cholesterol 84 mg/dL (<200) 02/20/23 03:09 HDL Cholesterol 58 mg/dL (40-60) 02/20/23 03:09 Cholesterol/HDL Ratio 1.45 02/20/23 03:09 Home Medications: Albuterol Sulfate [Proair Hfa] 2 puff IH PRN PRN 08/25/22 Allopurinol 300 mg PO DAILY 08/25/22 Apixaban [Eliquis] 5 mg PO BID 08/25/22 Atorvastatin Calcium [Lipitor] 40 mg PO BEDTIME 08/25/22 Cholecalciferol (Vitamin D3) [Vitamin D3] 1,000 unit PO DAILY 08/25/22 Cinnamon Bark [Cinnamon] 500 mg PO PRN PRN 08/25/22 Dapagliflozin Propanediol [Farxiga] 5 mg PO DAILY 08/25/22 Furosemide [Lasix*] 40 mg PO DAILY 08/25/22 L.acidoph,Paracasei, B.lactis [Probiotic] 1 each PO BIDP PRN 08/25/22 Metoprolol Tartrate [Lopressor*] 25 mg PO BID 08/25/22 Midodrine HCl 5 mg PO BID 08/25/22 Multivitamin 1 each PO BID 08/25/22 Sacubitril/Valsartan [Entresto 49 mg-51 mg Tablet] 1 each PO BID 08/25/22 metOLazone [Metolazone] 5 mg PO DAILY 08/25/22 Physician Discharge Instructions: -DC IV and DC home -Follow-up with PCP in 1 to 2 weeks -Follow-up with Cardiology in 1 to 2 weeks -Please call Dr. Douglas at [phone] if any questions regarding hospital stay -Please call nursing station at [phone] if any nursing or medication questions -Return to the emergency room if symptoms worsen Diet: Low sodium (heart healthy) Activity: Fall precautions Time spent managing pt's care (in minutes): 35
[2023-02-26 14:56] LABS: Albumin, (SPE) 3.6 g/dL (3.8-4.8); Alpha-1-Globulins 0.4 g/dL (0.2-0.3); Alpha-2-Globulins 0.7 g/dL (0.5-0.9); Gamma Globulins 1.8 g/dL (0.8-1.7); INTERPRETATION REPORT
== END 2023-02-20 07:56 | disposition home or self-care (01) | DRG 291 ==
LOC: 2ND 10:22 → OBSVTOIN 02-19 10:03
PROVIDERS: ADMIT Hospitalist; ATTEND Hospitalist
DX: I13.0 Hypertensive heart and chronic kidney disease with heart failure and stage 1 through stage 4 chronic kidney disease, or unspecified chronic kidney disease (principal); I50.23 Acute on chronic systolic (congestive) heart failure; E87.1 Hypo-osmolality and hyponatremia; N18.32 Chronic kidney disease, stage 3b; E11.22 Type 2 diabetes mellitus with diabetic chronic kidney disease; E11.649 Type 2 diabetes mellitus with hypoglycemia without coma; E78.5 Hyperlipidemia, unspecified; K76.1 Chronic passive congestion of liver; I42.9 Cardiomyopathy, unspecified; E88.09 Other disorders of plasma-protein metabolism, not elsewhere classified; M10.9 Gout, unspecified; I25.10 Atherosclerotic heart disease of native coronary artery without angina pectoris; Z88.0 Allergy status to penicillin; Z79.01 Long term (current) use of anticoagulants; Z86.73 Personal history of transient ischemic attack (TIA), and cerebral infarction without residual deficits; Z79.84 Long term (current) use of oral hypoglycemic drugs; Z86.711 Personal history of pulmonary embolism; Z95.810 Presence of automatic (implantable) cardiac defibrillator; Z79.899 Other long term (current) drug therapy
CPT/HCPCS: 36415; 71046; 71250; 74176; 80048; 80053; 80061; 80076; 81001; 82043; 82306; 82533; 82550; 82570; 82607; 82728; 82947; 83036; 83520; 83540; 83615; 83735; 83880; 83970; 84100; 84156; 84165; 84439; 84443; 84466; 84550; 85025; 85044; 85610; 85730; 86021; 86038; 86160; 86225; 86430; 87389; 87522; 93005; 93306; G0378; G0379; J1815; P9047

== ENCOUNTER 2023-03-31 23:41 | Inpatient (IN) | payer OTHER ==
--- OUTSIDE RECORDS SUMMARY | 2023-03-31 23:47 | XMS REPORT | Continuity of Care Document ---
:1955 Author Organization [facility] t Address [address] [place] [address] Care Team Providers Name Role Phone Vladislav Aguilar MD Primary Care Physician Vladislav Aguilar Attending Clinician Unavailable Dereck Carrillo MD Attending Clinician Dusty Flaherty MD Attending Clinician Negra Shirley CRNA Attending Clinician Only, Ang Db Test Attending Clinician Unavailable Samuel Segura MD Attending Clinician SAMUEL SEGURA Attending Clinician Unavailable Nazia Tenorio RN Attending Clinician Unavailable Gwendolyn Ramirez Attending Clinician Kanchan Baires Attending Clinician GWENDOLYN HAYNES Attending Clinician Unavailable Doctor Unassigned, [place] Attending Clinician Unavailable RODRICK MURRELL Attending Clinician [...] rs active active ity of problems problems [facility] Allergies, Adverse Reactions, Alerts Allergy Allergy Status [...] Stop Date Source Natural father [facility] Natural mother [facility] Social History Social Habit Start Date Stop Date Quantity Comments Source Alcohol intake 2023-01-05 2023-01-05 Ex-drinker [facility] 00:00:00 00:00:00 (finding) Tobacco use and 2022-12-31 2022-12-31 Smokeless tobacco [facility] exposure 00:00:00 00:00:00 non-user Exposure to 2022-10-24 2022-11-03 Yes [facility] SARS-CoV-2 00:00:00 19:47:00 [facility] (event) Branch Sex Ass[birth year] [facility] 00:00:00 00:00:00 Smoking Status Start Date Stop Date Source Tobacco smoking consumption [facility] Medical unknown Branch Never smoked tobacco [facility] Medications Ordered Filled Start Stop [...] 2023-0 Yes 5mg QD Take 1 Meth rashaun in 3-02 tablet (5 st (FARXIGA) 5 [...] inhaler hours as needed for wheezing. albuterol Yes 2{puff} Q.25D Inhale 2 Methodi (PROAIR 3-[address] HFA) 90 17:08: (four) Hospita mcg/actuati 02 times a l on inhaler day. azithromyci Yes [id number] 250mg Take 1 Univers n 250 mg 7-03 tablet by ity of tablet 00:00: mouth [place] 00 daily. Medical Branch azithromyci Yes [id number] 250mg Take 1 Univers n 250 mg 7-03 tablet by ity of tablet 00:00: mouth [place] 00 daily. Medical Branch azithromyci Yes [id number] 250mg Take 1 Univers n 250 mg 7-03 tablet by ity of tablet 00:00: mouth [place] 00 daily. Medical Branch azithromyci Yes [id number] 250mg Take 1 Univers n 250 mg [...] Immunizations Ordered Filled Immunization Date Status Comments [facility] Immunization Name Name SARS-COV-2 COVID-19 2022-04-07 Completed Unive rsity of MODERNA 0.25ML 00:00:00 [facility] BOOSTER VACCINE Branch SARS-COV-2 COVID-19 2022-04-07 Completed Unive rsity of MODERNA 0.25ML 00:00:00 [facility] BOOSTER VACCINE Branch SARS-COV-2 COVID-19 2022-04-07 Completed Unive rsity of MODERNA 0.25ML 00:00:00 [facility] BOOSTER VACCINE Branch SARS-COV-2 COVID-19 2022-04-07 Completed Unive rsity of MODERNA 0.25ML 00:00:00 [facility] BOOSTER VACCINE Branch Vital Signs Vital Name Observation Time Observation Value Comments Source Systolic blood 2022-05-04 23:40:00 119 mm[Hg] Univer sity of pressure [facility] Diastolic blood 2022-05-04 23:40:00 71 mm[Hg] Unive rsity of pressure [facility] Heart rate 2022-05-04 23:40:00 108 /min [facility] Body temperature 2022-05-04 23:40:00 37.83 Anjali [facility] Respiratory rate 2022-05-04 23:40:00 25 /min [facility] Body height 2022-05-04 23:40:00 180.3 cm [facility] Body weight 2022-05-04 23:40:00 90.583 kg [facility] BMI 2022-05-04 23:40:00 27.85 kg/m2 [facility] Oxygen saturation in 2022-05-04 23:40:00 98 /min [facility] Arterial blood by [facility] Pulse oximetry [place] Systolic blood 2022-12-31 22:00:00 131 mm[Hg] Method [facility] pressure Diastolic blood 2022-12-31 22:00:00 80 mm[Hg] [facility] pressure Heart rate 2022-12-31 22:00:00 87 /min [facility] Respiratory rate 2022-12-31 22:00:00 17 /min [facility] Oxygen saturation in 2022-12-31 22:00:00 100 /min [facility] Arterial blood by Pulse oximetry Body temperature 2022-12-31 17:30:00 36.44 [facility] Body height 2022-12-31 12:01:00 180.3 cm [facility] Body weight 2022-12-31 12:01:00 89.721 kg [facility] BMI 2022-12-31 12:01:00 27.59 kg/m2 [facility] Procedures Procedure Date / Time Performing Clinician Source Performed POC GLUCOSE 2022-12-31 21:01:00 Gerardo [facility] Religious spital ECG PRE/POST OP 2022-12-31 18:26:43 Gerardo, [facility] Religious Ho spital POC GLUCOSE 2022-12-31 18:22:00 Gerardo [facility] Religious Ho spital XR CHEST 1 VW PORTABLE 2022-12-31 18:05:00 Gerardo [facility] EP CARDIAC MODULATOR 2022-12-31 17:05:26 [facility] INSERT/REPLACE TYPE AND SCREEN 2022-12-31 12:18:00 Gerardo, [facility] Religious Ho spital POC GLUCOSE 2022-12-31 12:10:00 Gerardo [facility] Religious Ho spital ECG 12-LEAD 2022-12-31 11:53:04 Gerardo [facility] spital COVID-19 QUALITATIVE 2022-12-29 18:52:00 [facility] RT-PCR COMPREHENSIVE METABOLIC 2022-12-29 18:52:00 [facility] PANEL CBC WITH PLATELET AND 2022-12-29 18:52:00 [facility] DIFFERENTIAL MAGNESIUM LEVEL 2022-12-29 18:52:00 Gerardo [facility] spital PROTHROMBIN TIME WITH 2022-12-29 18:52:00 [facility] INR ESTIMATED GFR 2022-12-29 18:52:00 Gerardo [facility] spital XR CHEST 2 VW 2022-05-05 00:04:00 Gwendolyn Haynes [facility] Plan of Care Planned Activity Planned Date Details Comments Source Future Scheduled 2023-02-18 Hepatitis C screening [facility] [place] Test 10:26:44 (procedure) [code = 595960067] Future Scheduled 2023-02-18 [facility] 10:26:44 [code = COLONOSCOPY SCREENING] Future Scheduled 2023-02-18 SHINGLES VACCINES ([address] [facility] Test 10:26:44 of 2) [code = SHINGLES VACCINES (1 of 2)] Future Scheduled 2023-02-18 INFLUENZA VACCINE [facility] Test 10:26:44 [code = INFLUENZA VACCINE] Encounters Start End Encounter Admission Attending Care Care Encounter Source Date/Time Date/Time Type Type Clinicians Facility Department ID 2022-06-[address] [facility] [id number] Common 09:10:17 Vladislav [facility] 2022-05-14 Outpatient Lauren [facility] [id number] Common 09:11:03 Vladislav [facility] 2022-12-31 2022-12-31 Hospital Gerardo, 1.2.840.1 [id number] Methodi 05:43:00 17:08:00 Encounter Dereck 53167.1.[address] 3.430.2.7 Hospit a .3.108683 l .8 2022-12-31 2022-12-31 Anesthesia Dusty Flaherty 1.2.840.1 [id number] Methodi 08:15:00 11:36:00 Event Negra Shirley 41865.1.[address] 3.430.2.7 Hospit a .3.104855 l .8 2022-12-31 2022-12-31 Surgery Gerardo, 1.2.840.1 [id number] Methodi 08:15:00 11:20:[address] 3.430.2.7 Hospit a .3.449657 l .8 2022-12-31 2022-12-31 Travel 1.2.840.1 1.2.076.612 [id number] Methodi 00:00:00 00:00:[address] 3.430.2.7 0.2.7.3.698 Ho spita .3.798140 084.8 l .8 2022-12-29 2022-12-29 Lab Gerardo, 1.2.840.1 [id number] Methodi 12:25:00 12:30:[address] 3.430.2.7 Hospit a .3.345195 l .8 2022-12-29 2022-12-29 Travel 1.2.840.1 1.2.091.720 [id number] Methodi 00:00:00 00:00:[address] 3.430.2.7 0.2.7.3.698 Ho spita .3.655232 084.8 l .8 2022-12-15 2022-12-15 Community Gerardo, 1.2.840.1 [id number] Methodi 00:00:00 00:00:00 Orders Nadim 75562.1.[address] 3.430.2.7 Hospit a .3.728723 l .8 2022-11-03 2022-11-03 Laboratory Only, Ang Db Test [facility] 1.2.8 40.114 [id number] Univers 19:45:00 20:00:00 Only Colton Samuel [facility] 350.1.13.10 [facility] 4.2.7.2.686 Isidro as SAE?BLEA [id number] [address] MEDICAL OFFICE BUILDING 2022-11-03 2022-11-03 Outpatient R COLTON [facility] [id number] Univers 19:45:00 19:45:00 [facility] 2022-08-13 2022-08-13 Travel 1.2.840.1 1.2.348.314 [id number] Methodi 00:00:00 00:00:[address] 3.430.2.7 0.2.7.3.698 Ho spita .3.380540 084.8 l .8 2022-05-05 2022-05-05 Telephone Nazia Tenorio 1.2.840.114 [id number] Univers 00:00:00 00:00:00 RHONDA 350.1.13.10 it y of HOSPITAL 4.2.7.2.686 Isidro as [id number] [facility] [address] 2022-05-04 2022-05-04 [facility] 1.2.840.114 [id number] Univers 18:54:07 23:59:00 Encounter [facility] 350.1.13.10 ity of [place] 4.2.7.2.686 Isidro as SAE?BLEA [id number] [facility] [address] MEDICAL OFFICE [facility] 2022-05-04 2022-05-04 [facility] 1.2.840.114 [id number] Univers 18:40:00 19:04:20 Care Kanchan Sosa [facility] 350.1.13.10 ity of [place] 4.2.7.2.686 Isidro as SAE?BLEA [id number] [facility] [address] [facility] OFFICE [facility] 2022-05-04 2022-05-04 Outpatient Gisela HAYNES [facility] [id number] Univers 18:40:00 19:04:20 GWENDOLYN [facility] 2022-05-04 2022-05-04 [facility] [id number] Univers 18:54:07 18:54:07 [facility] 2022-05-04 2022-05-04 Orders Doctor OREILLY 1.2.840.114 [id number] Univers 00:00:00 00:00:00 Only Unassigned, RHONDA 350.1.13.10 ity of [place] [facility] 4.2.7.2.686 Isidro as [id number] [facility] [address] 2022-04-08 2022-04-08 Outpatient Gisela MURRELL [facility] [id number] Univers 08:30:00 08:30:00 RODRICK sotomayor [facility] 2022-04-07 2022-04-07 Outpatient Gisela MURRELL [facility] [id number] Univers 15:30:00 16:06:14 RODRICK sotomayor [facility] 2022-04-07 2022-04-07 Imm/Inj Vaccine, Adc Family Medicine [facility] 1.2.840.114 [id number] Univers 15:30:00 15:40:00 Visit Rodrick Murrell 350.1.13 .10 ity [facility] 4.2.7.2.686 [place] [id number] Wa diclara NAL [address] BUILDING 2021-09-09 2021-09-09 Outpatient R HANDY [facility] [id number] Univers 08:50:00 08:50:00 RODRICK [facility] 2021-07-15 2021-07-15 Letter AFIA Drake 1.2.840.114 [id number] Univers 00:00:00 00:00:00 (Out) Shannon ELLIS 350.1.13.10 it of [facility] 4.2.7.2.686 Isidro as [id number] [address] 2021-07-13 2021-07-13 Laboratory Only, Ang Db Test [facility] 1.2.8 40.114 [id number] Univers 19:34:50 19:49:50 Only [place] [facility] 350.1.13.10 ity [facility] 4.2.7.2.686 Isidro as Sae?Blea [id number] Wa dical kney [address] [facility] 2021-07-13 2021-07-13 Outpatient R DALLAS [facility] [id number] Univers 19:30:00 19:30:00 [facility] Results Test Description Test Time Test Comments Results Result Comments Source ECG Pre/Post Op-Tomorrow 2022-12-31 22:33:35 Test Item Value Reference Range Interpretation Comme nts Ventricular rate (test code = 253) 81 Atrial rate (test code = 255) 81 WI interval (test code = 266) 124 QRSD [...] data quality, interpretat ion may be adversely booypgsv-Xbnlql-ayhegk ventricular-paced rhythm-Biventricular pacemaker detected-Abnormal ECG-In automated comparison with ECG of 31-DEC-2022 05:53,-Vent. rate has decreased BY 5 BPM- [facility] [id number] 21:02:00 Test Item Value Reference Range Interpretation Comments POC glucose (test code 300 mg/dL 65-99 H Opera tor Name: = 67761-5) Alvarez Urias ID : [id number] able: No Action Neede d Lab Interpretation Abnormal (test code = 98257-7) [facility] 12 [id number] 12:54:20 Test Item Value Reference Range Interpretation Comments Ventricular rate (test 86 code = 253) Atrial rate (test code 86 = 255) WI interval (test code 150 = 266) QRSD [...] pacemaker has replaced Sinus rhythm[facility] [id number] 23:04:43 Test Item Value Reference Interpretation Comments Range Interpretation Negative results do (test code = not preclude COVID-19 7220131) infection and should not be used asthe sole basis for treatment or other patient management decisions. Negativeresults must be combined with clinical observations, patient history, andepidemiological information. COVID-19 Not-Detected Not-Detected DISCLAIMER:This qualitative RT-PCR test was result (test code performed using = 28646-4) the Lukas bach SARS-CoV-2 Assaleja y ([employer] This assay is available for i n vitro diagnosti c use under Food and Drug Administration (FDA) Emergency Use Authorizati on (EUA) and has been verified f or clinical use by the [facility]. Information on the FDA policy for diagnostic tests for coronavirus disease- 2019 i s available at:https://www. fd a.gov/medical-d ev ices/emergency- si tuations-medica l- devices/faqs-di ag nostic-testing- sa rs-cov-2It is critical that health care providers and patients review the applicable fact sheet(s) i n interpreting or understanding t he test results th at are available upon request.METHODO LO GY:This assay utilizes [employer] ts for nucleic aci d extraction, amplification, and real-time reverse rehabilitation assistant polymerase augusta n reaction. COVID-19 See link below for PDF Case Number: qualitative RT-PCR Lab Report [id number] PDF (test code = 7070) [facility] RNA [Presence] in Respiratory specimen by LORETO with probe [id number] 17:04:43 Test Item Value Reference Range Interpretation Comments SARS-CoV-2 (COVID-19) RNA Not detected [Presence] in Respiratory specimen by LORETO with probe detection (test code = 10928-2) Whether patient is employed in a Unknown healthcare setting (test code = 42004-6) Whether the patient has symptoms Unknown related to condition of interest (test code = 41560-9) Whether the patient was Unknown hospitalized for condition of interest (test code = 08063-9) Whether the patient was admitted Unknown to intensive care unit (ICU) for condition of interest (test code = 01929-6) Whether patient resides in a Unknown congregate care setting (test code = 29524-3) status (test code = Unknown 02951-5) Date and time of symptom onset Unknown (test code = 01654-3) [facility]
[2023-04-01] MEDS ORDERED: CEFAZOLIN SODIUM 1 GM/VIAL ONE (00:28)
[2023-04-01] MEDS ORDERED: ONDANSETRON 4 MG/2 ML VIAL ONE (00:29)
[2023-04-01] MEDS ORDERED: ALBUMIN HUMAN 25% 100 ML IV ONE ×2 (00:29→03:12)
[2023-04-01] MEDS ORDERED: MORPHINE 4 MG/ML SYR ONE (00:29)
[2023-04-01] MEDS ORDERED: NA CHLORIDE 0.9% 250 ML ONE (00:29)
[2023-04-01] MEDS ORDERED: VANCOMYCIN 1 GM/VIAL ONE (00:29)
[2023-04-01] MEDS ORDERED: NA CHLORIDE 0.9% 100 ML ONE (00:30)
[2023-04-01 00:49] LABS: Protime INR 1.42
[2023-04-01 00:51] LABS: Absolute Lymphocytes (CBC) 0.3 K/uL (0.7-4.9); Hematocrit 29.8 % (39.6-49.0); MCV 95.3 fL (80-100); MPV 7.6 fL (7.6-11.3); RBC Red Blood Cell Count 3.12 M/uL (4.33-5.43)
[2023-04-01 02:03] LABS: Albumin 2.6 g/dL (3.4-5.0); Bilirubin Direct 0.8 mg/dL (0-0.2); Bilirubin Indirect, Calculated 0.9 mg/dL (0.2-0.8); Bilirubin Total 1.7 mg/dL (0.2-1.0); Potassium 3.9 mEq/L (3.5-5.1); Protein, Total 6.9 g/dL (6.4-8.2)
[2023-04-01 02:07] LABS: Troponin High Sensitivity 73.8 pg/mL (<58.9)
--- NOTE | 2023-04-01 02:34 | ER ---
Nurse's Notes [facility] Name: Jose Guadalupe Moss Age: 67 yrs Sex: Male : 1955 Arrival Date: 03/31/2023 Time: 23:41 Bed 18 Private MD: Diagnosis: Cellulitis of right lower limb;Systolic heart failure exacerbation, elevated troponin I, bilateral lower extremity edema, venous stasis skin changes, venous stasis skin ulcers to lower extremities. ;Acute combined systolic and diastolic heart failure Presentation: 03/31 23:52 Chief complaint: Patient states: I have a puncture wound on my right heel and some sore kd3 on both of my legs that came up after my CCN procedure in [place]. Both of my legs were swollen and they started to seep though. Coronavirus screen: Vaccine status: Patient reports receiving the 2nd dose of the covid vaccine. Ebola Screen: No symptoms or risks identified at this time. Initial Sepsis Screen: Does the patient meet any 2 criteria? No. Patient's initial sepsis screen is negative. Does the patient have a suspected source of infection? No. Patient's initial sepsis screen is negative. Risk Assessment: Do you want to hurt yourself or someone else? Patient reports no desire to harm self or others. Onset of symptoms was March 31, 2023. 23:52 Method Of Arrival: Wheelchair kd3 23:52 Acuity: MATEUS 3 kd3 Triage Assessment: 23:54 General: Appears uncomfortable, Behavior is calm, cooperative. Pain: Complains of pain kd3 in heel of right foot. Historical: - Allergies: 23:54 PENICILLINS; kd3 - Home Meds: 04/01 01:01 carvedilol 12.5 mg Oral tab 1 tab 2 times per day [Active]; Entresto 49-51 mg Oral tab rv 1 tab 2 times per day [Active]; furosemide 40 mg Oral tab 1 tab once daily [Active]; glimepiride 4 mg Oral tab 1 tab 2x daily [Active]; lovastatin 20 mg Oral tab 1 tab once daily [Active]; Warfarin 7 mg daily Oral [Active]; - PMHx: 03/31 23:54 Pacemaker; Hypertension; Diabetes - NIDDM; kd3 - Immunization history:: Adult Immunizations up to date. - Social history:: Smoking status: Patient denies any tobacco usage or history of. - Family history:: not pertinent. Screenin/31 00:43 [facility] ED Fall Risk Assessment (Adult) History of falling in the last 3 months, rv including since admission No falls in past 3 months (0 pts). Abuse screen: Denies threats or abuse. Denies injuries from another. Nutritional screening: No deficits noted. Tuberculosis screening: No symptoms or risk factors identified. Assessment: 00:52 Cardiovascular:. Musculoskeletal: Swelling present in right leg and left leg. rv 00:55 Cardiovascular: positive pulses on bilateral dorsalis pedis via doppler. rv Vital Signs: 03/31 23:52 BP 93 / 63; Pulse 99; Resp 18; Temp 98.3(O); Pulse Ox 100% on R/A; Weight 77.56 kg; kd3 Height 5 ft. 11 in. ; 04/01 01:02 BP 109 / 73; Pulse 105; Resp 19; Pulse Ox 98% on R/A; rv 02:08 BP 107 / 75; Pulse 97; Resp 17; Pulse Ox 100% on R/A; ll3 03/31 23:52 Body Mass Index 23.85 (77.56 kg, 180.34 cm) kd3 Vitals: 00:55 Cardiac Rhythm Assessment Paced. rv ED Course: 03/31 23:46 Patient arrived in ED. ja2 23:48 Azar Avalos MD is Attending Physician. sp4 23:54 Triage completed. kd3 23:54 Arm band placed on right wrist. kd3 23:56 Jalen Burns RN is Primary Nurse. rv 04/01 00:15 Inserted saline lock: 20 gauge in right forearm, using aseptic technique. Blood rv collected. 00:23 XRAY Chest (1 view) In Process Unspecified. EDMS 00:40 Inserted saline lock: 20 gauge in left antecubital area, using aseptic technique. rv 00:43 Patient has correct armband on for positive identification. Placed in gown. Bed in low rv position. Call light in reach. Side rails up X 1. Adult w/ patient. Client placed on continuous cardiac and pulse oximetry monitoring. NIBP monitoring applied. youth nutritional monitor on. 01:02 No provider procedures requiring assistance completed. rv 01:33 Extrem Venous W Compression Mao US In Process Unspecified. EDMS 02:07 Notified ED physician of a critical lab result(s). Trop 73.8. ll3 02:33 Vladislav Aguilar MD is Hospitalizing Provider. sp4 06:16 Notified the admitting physician of attempted to contact Dr. Aguilar regarding patient kd3 leaving AMA. No Answer. Administered Medications: 00:38 Drug: morphine IVP or IV 4 mg Route: IVP; Infused Over: 4 mins; Site: right antecubital;ll3 00:38 Drug: Ondansetron IVP 4 mg Route: IVP; Site: right antecubital; ll3 00:38 Drug: ceFAZolin IVPB 1 grams Volume: 50 ml; Route: IVPB; Infused Over: 30 mins; Site: ll3 right antecubital; 01:11 Follow up: Response: No adverse reaction; IV Status: Completed infusion; IV Intake: ll3 100ml 00:42 Drug: Albumin IVPB 25 grams Volume: 100 ml; Route: IVPB; Site: left antecubital; rv 01:10 Drug: vancoMYCIN IVPB 1 grams Route: IVPB; Infused Over: 2 hrs; Site: right antecubital;ll3 03:11 Drug: midodrine 5 mg Route: Feeding Tube; ll3 03:12 Drug: Albumin IVPB 25 grams Volume: 100 ml; Route: IVPB; Site: right antecubital; ll3 Medication: 00:52 VIS not applicable for this client. rv Intake: 01:11 IV: 100ml; Total: 100ml. ll3 Outcome: 02:34 Decision to Hospitalize by Provider. sp4 06:58 Patient left the ED. kd3 Signatures: Dispatcher [employer] EDKY Jalen Burns RN RN rv Marily [place] Lynsea, RN RN ll3 Brielle Latif RN RN kd3 Azar Avalos MD MD sp4 Corrections: (The following items were deleted from the chart) 00:43 00:15 Inserted saline lock: 20 gauge in right forearm, using aseptic technique. rv rv
--- NOTE | 2023-04-01 02:34 | EDPHYS ---
Physician Documentation [facility] Name: Jose Guadalupe Moss Age: 67 yrs Sex: Male : 1955 Arrival Date: 03/31/2023 Time: 23:41 Bed 18 Private MD: ED Physician Azar Avalos HPI: 03/31 23:48 This 67 yrs old Black Male presents to ER via Unassigned with complaints of Foot Pain. sp4 04/01 00:07 Very pleasant 67-year-old male with history of pacemaker, hypertension, diabetes sp4 bilateral lower extremity chronic edema presents with worsening bilateral lower extremity edema also moderate pain on the right foot also bilateral chronic skin ulcers to bilateral lower extremities. Patient states right foot is particularly painful today.. 02:23 Patient's heart history includes cardiomyopathy, hypoalbuminemia, anasarca, chronic sp4 kidney disease, last admission 02/20/2023 patient was admitted for diffuse anasarca, ejection fraction 19% worsening heart failure. Patient's medications include albuterol, allopurinol, Eliquis, atorvastatin, cholecalciferol, cinnamon, fark [employer], furosemide, metoprolol, midodrine, multivitamin, valsartan/Entresto, metolazone. Historical: - Allergies: 03/31 23:54 PENICILLINS; kd3 - Home Meds: 04/01 01:01 carvedilol 12.5 mg Oral tab 1 tab 2 times per day [Active]; Entresto 49-51 mg Oral tab rv 1 tab 2 times per day [Active]; furosemide 40 mg Oral tab 1 tab once daily [Active]; glimepiride 4 mg Oral tab 1 tab 2x daily [Active]; lovastatin 20 mg Oral tab 1 tab once daily [Active]; Warfarin 7 mg daily Oral [Active]; - PMHx: 03/31 23:54 Pacemaker; Hypertension; Diabetes - NIDDM; kd3 - Immunization history:: Adult Immunizations up to date. - Social history:: Smoking status: Patient denies any tobacco usage or history of. - Family history:: not pertinent. ROS: 04/01 00:07 Constitutional: Negative for fever, chills, and weight loss, Eyes: Negative for injury, sp4 pain, redness, and discharge, ENT: Negative for injury, pain, and discharge, Neck: Negative for injury, pain, and swelling, Cardiovascular: Negative for chest pain, palpitations, positive for bilateral lower extremity edema that is chronic Respiratory: Negative for shortness of breath, cough, wheezing, and pleuritic chest pain, Abdomen/GI: Negative for abdominal pain, nausea, vomiting, diarrhea, and constipation, Back: Negative for injury and pain, : Negative for injury, bleeding, discharge, and swelling, MS/Extremity: Negative for injury and deformity, Skin: Negative for injury, rash, positive bilateral lower extremity skin ulcers that are chronic and oozing tissue fluid Neuro: Negative for headache, weakness, numbness, tingling, and seizure, Psych: Negative for depression, anxiety, Allergy/Immunology: Negative for hives, rash, and allergies Endocrine: Negative for neck swelling, polydipsia, polyuria, polyphagia, and weight changes Hematologic/Lymphatic: Negative for swollen nodes, abnormal bleeding, and unusual bruising Exam: 00:07 Constitutional: This is a well developed, well nourished patient who is awake, alert, sp4 frail elderly male, uncomfortable appearing Head/Face: Normocephalic, atraumatic. Eyes: Pupils equal round and reactive to light, extra-ocular motions intact. Lids and lashes normal. Conjunctiva and sclera are not injected. Cornea within normal limits. Periorbital areas with no swelling, redness, or edema. ENT: Nares patent. No nasal discharge, no septal abnormalities noted. Tympanic membranes are normal and external auditory canals are clear. Oropharynx with no redness, swelling, or masses, exudates, or evidence of obstruction, uvula midline. Mucous membranes moist. Neck: Trachea midline, no thyromegaly or masses palpated, and no cervical lymphadenopathy. Supple, full range of motion without nuchal rigidity, or vertebral point tenderness. No Meningismus. Chest/axilla: Normal chest wall appearance and motion. Nontender with no deformity. No lesions are appreciated. Cardiovascular: Regular rate and rhythm with a normal S1 and S2. No gallops, murmurs, or rubs. Normal PMI, no JVD. No pulse deficits. Respiratory: Lungs have equal breath sounds bilaterally, clear to auscultation and percussion. No rales, rhonchi or wheezes noted. No increased work of breathing, no retractions or nasal flaring. Abdomen/GI: Soft, non-tender, with normal bowel sounds. No distension or tympany. No guarding or rebound. No evidence of tenderness throughout. Back: No spinal tenderness. No costovertebral tenderness. Male : Normal genitalia with no discharge or lesions. Skin: Warm, dry with normal turgor. Normal color with bilateral lower extremity ulcers that appear to be ischemic type skin ulcers with moderate to diffuse bilateral lower extremity edema, draining clear fluid from the ulcers. MS/ Extremity: Pulses equal, no cyanosis. Neurovascular intact. Full, normal range of motion. Neuro: Awake and alert, GCS 15, oriented to person, place, time, and situation. Cranial nerves II-XII grossly intact. Motor strength 5/5 in all extremities. Sensory grossly intact. Psych: Awake, alert, with orientation to person, place and time. Behavior, mood, and affect are within normal limits 02:35 ECG was reviewed by the Attending Physician. EKG time 0015 04/01/2023. There is a sp4 atrial sensed ventricular paced rhythm at the rate of 100, occasional PVCs that are multifocal, biventricular pacemaker detected Vital Signs: 03/31 23:52 BP 93 / 63; Pulse 99; Resp 18; Temp 98.3(O); Pulse Ox 100% on R/A; Weight 77.56 kg; kd3 Height 5 ft. 11 in. ; 04/01 01:02 BP 109 / 73; Pulse 105; Resp 19; Pulse Ox 98% on R/A; rv 02:08 BP 107 / 75; Pulse 97; Resp 17; Pulse Ox 100% on R/A; ll3 03/31 23:52 Body Mass Index 23.85 (77.56 kg, 180.34 cm) kd3 MDM: 00:07 Patient medically screened. sp4 02:29 Differential diagnosis: arthritis, cellulitis, Anasarca, heart failure exacerbation, sp4 bilateral lower extremity lesions, venous stasis ulcers, venous stasis skin change. Data reviewed: vital signs, nurses notes, old medical records, lab test result(s), cardiac enzymes, CBC, electrolytes, hepatic panel, EKG, radiologic studies, plain films, ultrasound. Consideration of Admission/Observation Patient was admitted/placed on observation. Escalation of care including admission/observation considered. Management of patient was discussed with the following: Hospitalist: Lauren MAXWELL . Production Engine Repairer: Ale MAXWELL . ED course: Patient has cardiomegaly on his chest x-ray, no evidence of DVT in bilateral lower extremities based on Doppler ultrasound. Patient has significant elevation of troponin and BNP indicative of worsening heart failure and NSTEMI as well. Patient warrants admission for cardiology assessment in the morning, gentle diuresis, management of right lower extremity cellulitis. . ED course: pressure suboptimal for Lasix, at this time will administer albumin and midodrine. 06:39 ED course: Addendum note -after admission at 6:30 AM patient became upset and sp4 irritable. Patient at this time is being held in ER as an admit. Patient stated that he would like to go home AMA. Patient was advised that his troponin is elevated and he has a sign of moderate to severe heart failure exacerbation. Patient was advised in case he leaves AMA he may at home. Patient at this time is adamant he would like to leave AMA. We have no grounds to hold patient against his will in the emergency room. Patient has signed out [facility] [place] paperwork. . 04/01 00:05 Order name: Basic Metabolic Panel; Complete Time: 02:15 4 04/01 00:05 Order name: CBC with Diff 4 04/01 00:05 Order name: LFT's; Complete Time: 02:15 4 04/01 00:05 Order name: NT PRO-BNP; Complete Time: 02:15 4 04/01 00:05 Order name: PT-INR; Complete Time: 00:58 4 04/01 00:05 Order name: Troponin HS; Complete Time: 02:15 4 04/01 01:03 Order name: Manual Differential EDMS 04/01 00:05 Order name: XRAY Chest (1 view) 4 04/01 00:58 Order name: Extrem Venous W Compression Mao US 4 04/01 00:05 Order name: Diet Ada 1800 Shaun; Complete Time: 00:05 4 04/01 00:05 Order name: EKG; Complete Time: 00:06 4 04/01 00:05 Order name: Cardiac monitoring; Complete Time: 00:18 sp4 04/01 00:05 Order name: EKG - Nurse/Tech; Complete Time: 00:18 4 04/01 00:05 Order name: IV Saline Lock; Complete Time: 00:38 sp4 04/01 00:05 Order name: Labs collected and sent; Complete Time: 00:38 sp4 04/01 00:05 Order name: O2 Per Protocol; Complete Time: 00:18 sp4 04/01 00:05 Order name: O2 Sat Monitoring; Complete Time: 00:18 sp4 04/01 01:02 Order name: Wound Care: Bilateral leg cleansing and Kerlix dressings ; Complete Time: sp4 01:03 EC:35 Rate is 100 beats/min. Rhythm is regular, Paced. Interpreted by me. sp4 Administered Medications: 00:38 Drug: morphine IVP or IV 4 mg Route: IVP; Infused Over: 4 mins; Site: right antecubital;ll3 00:38 Drug: Ondansetron IVP 4 mg Route: IVP; Site: right antecubital; ll3 00:38 Drug: ceFAZolin IVPB 1 grams Volume: 50 ml; Route: IVPB; Infused Over: 30 mins; Site: ll3 right antecubital; 01:11 Follow up: Response: No adverse reaction; IV Status: Completed infusion; IV Intake: ll3 100ml 00:42 Drug: Albumin IVPB 25 grams Volume: 100 ml; Route: IVPB; Site: left antecubital; rv 01:10 Drug: vancoMYCIN IVPB 1 grams Route: IVPB; Infused Over: 2 hrs; Site: right antecubital;ll3 03:11 Drug: midodrine 5 mg Route: Feeding Tube; ll3 03:12 Drug: Albumin IVPB 25 grams Volume: 100 ml; Route: IVPB; Site: right antecubital; ll3 Disposition Summary: 04/01/23 02:34 Hospitalization Ordered Hospitalization Status: Observation sp4 Provider: Vladislav Aguilar sp4 Condition: Fair sp4 Problem: new sp4 Symptoms: are unchanged sp4 Bed/Room Type: Standard sp4 Location: [facility] ER HOLD(04/01/23 02:46) cg Room Assignment: ERHOLD-(04/01/23 02:46) cg Diagnosis - Cellulitis of right lower limb sp4 - Systolic heart failure exacerbation, elevated troponin I, bilateral lower extremity sp4 edema, venous stasis skin changes, venous stasis skin ulcers to lower extremities. - Acute combined systolic and diastolic heart failure sp4 Forms: - Medication Reconciliation Form sp4 - SBAR form sp4 Signatures: Dispatcher [employer] Maylin Rocha, RN RN cg Jalen Burns RN RN Jaziel Siu RN RN 3 Brielle Latif RN RN kd3 Azar Avalos MD MD sp4 Corrections: (The following items were deleted from the chart) 02:46 02:34 Telemetry/MedSurg (Inpatient) sp4 cg 02:46 02:34 sp4 cg
[2023-04-01 02:39] LABS: Blood Morphology Comment NOT SEEN (NOT SEEN); Platelet Estimate ADEQ
[2023-04-01] MEDS ORDERED: MORPHINE 4 MG/ML SYR IV PRN (02:44)
[2023-04-01] MEDS ORDERED: HYDROCODONE/APAP 5/325 MG TAB PO PRN (03:27)
[2023-04-01] MEDS ORDERED: ZOLPIDEM TARTRATE 5 MG TABLET PO PRN (03:27)
[2023-04-01] MEDS ORDERED: ONDANSETRON 4 MG/2 ML VIAL IV PRN (03:27)
[2023-04-01] MEDS ORDERED: ALBUTEROL 2.5 MG/3 ML NEB SOL NEB PRN ×2 (03:27→12:00)
[2023-04-01] MEDS ORDERED: MAGNESIUM HYDROXIDE 8% 30 ML PO PRN (03:27)
[2023-04-01] MEDS ORDERED: ACETAMINOPHEN 500 MG TAB PO PRN (03:27)
[2023-04-01 03:35] VITALS: BMI 23.8
[2023-04-01 05:22] VITALS: BP 107/76; TEMP 97.1
[2023-04-01] MEDS ORDERED: MIDODRINE HCL 5 MG TABLET PO SCH (09:00)
[2023-04-01] MEDS ORDERED: APIXABAN 5 MG TABLET PO SCH (09:00)
--- NOTE | 2023-04-01 12:37 | RAD REPORT ---
EXAM DESCRIPTION: RAD - Chest Single View - 04/01/2023 12:21 am CLINICAL HISTORY: The patient is 67 years old and is Male; CHEST PAIN TECHNIQUE: Frontal view of the chest. COMPARISON: No relevant prior studies available. FINDINGS: LUNGS: Unremarkable. No consolidation. PLEURAL SPACE: Unremarkable. No pneumothorax. HEART: The cardiac silhouette is enlarged. MEDIASTINUM: Unremarkable. BONES/JOINTS: Degenerative change of the bones is noted. TUBES, LINES AND DEVICES: Bilateral pacemakers are noted. UPPER ABDOMEN: Unremarkable as visualized. IMPRESSION: Cardiomegaly without failure. Electronically signed by: Rosmery White MD 04/01/2023 1:27 AM CDT Due to temporary technical issues with the PACS/Fluency reporting system, reports are being signed by the in house radiologist without review as a courtesy to ensure prompt reporting. The interpreting r adiologist is fully responsible for the content of the report.
--- NOTE | 2023-04-01 13:47 | RAD REPORT ---
EXAM DESCRIPTION: US - Extrem Venous W Compress Mao - 04/01/2023 1:31 am CLINICAL HISTORY: The patient is 67 years old and is Male; bilateral lower leg edema TECHNIQUE: Real-time duplex ultrasound scan of the bilateral lower extremity veins integrating B-mod e two-dimensional vascular structure, Doppler spectral analysis, color flow Doppler imaging and compr ession. COMPARISON: No relevant prior studies available. FINDINGS: Right deep veins: Unremarkable. No DVT in the visualized common femoral, femoral, or p opliteal veins. The veins demonstrate normal color flow, are normally compressible where visualized , with normal phasic flow and/or augmentation response. Left deep veins: Unremarkable. No DVT in the visualized common femoral, femoral, or popliteal v eins. The veins demonstrate normal color flow, are normally compressible where visualized, with nor mal phasic flow and/or augmentation response. Soft tissues: Soft tissue edema. IMPRESSION: No evidence of DVT in the bilateral lower extremity veins. Electronically signed by: Casey Venegas MD 04/01/2023 1:49 AM CDT Due to temporary technical issues with the PACS/Fluency reporting system, reports are being signed by the in house radiologist without review as a courtesy to ensure prompt reporting. The interpreting r adiologist is fully responsible for the content of the report.
--- NOTE | 2023-04-01 20:14 | P.SSS ---
Patient History Date of Service: 04/01/23 Reason for admission: I never got to see this patient. He left before I came to see him at 7.45 History of Present Illness: he left against medical advise. Allergies Penicillins Adverse Reaction (Verified 09/01/22 08:39) hyperventilates Home Medications: Albuterol Sulfate [Proair Hfa] 2 puff IH PRN PRN 08/25/22 Allopurinol 300 mg PO DAILY 08/25/22 Apixaban [Eliquis] 5 mg PO BID 08/25/22 Atorvastatin Calcium [Lipitor] 40 mg PO BEDTIME 08/25/22 Cholecalciferol (Vitamin D3) [Vitamin D3] 1,000 unit PO DAILY 08/25/22 Cinnamon Bark [Cinnamon] 500 mg PO PRN PRN 08/25/22 Dapagliflozin Propanediol [Farxiga] 5 mg PO DAILY 08/25/22 Furosemide [Lasix*] 40 mg PO DAILY 08/25/22 L.acidoph,Paracasei, B.lactis [Probiotic] 1 each PO BIDP PRN 08/25/22 Metoprolol Tartrate [Lopressor*] 25 mg PO BID 08/25/22 Midodrine HCl 5 mg PO BID 08/25/22 Multivitamin 1 each PO BID 08/25/22 Sacubitril/Valsartan [Entresto 49 mg-51 mg Tablet] 1 each PO BID 08/25/22 metOLazone [Metolazone] 5 mg PO DAILY 08/25/22 - Past Medical/Surgical History Diabetic: Yes -: HTN -: DM -: CHF -: CCM -: Defibulator Physical Examination - Vital Signs Temperature: 97.1 F Blood Pressure: 107/76 Pulse: 16 Respirations: 16 Pulse Ox (%): 97 - Studies Laboratory Data (last 24 hrs) 04/01/23 00:25: PT 15.6 H, INR 1.42 04/01/23 00:25: WBC 9.00, Hgb 9.9 L, Hct 29.8 L, Plt Count 190 04/01/23 00:25: Sodium 132 L, Potassium 3.9, BUN 85 H, Creatinine 1.91 H, Glucose 252 H, Total Bilirubin 1.7 H, AST 27, ALT 34, Alkaline Phosphatase 189 H - Disposition Disposition: AMA-LEFT AGAINST MEDICAL ADVIC
[2023-04-02 09:40] VITALS: O2SAT 97
--- NOTE | 2023-04-02 12:11 | EKG ---
Test Date: 2023-04-01 Test Time: 00:15:32 Business Operations Specialist: MJ MEASUREMENT RESULTS: Intervals: Rate: 101 MS: 130 QRSD: 168 QT: 412 QTc: 534 [place]: P: 78 MS: 130 QRS: -80 T: 93 INTERPRETIVE STATEMENTS: Atrial-sensed ventricular-paced rhythm with occasional and consecutive premature ventricular complexes Biventricular pacemaker detected Abnormal ECG Compared to ECG 04/01/2023 00:12:10 Atrial-paced complex(es) or rhythm no longer present Electronically Signed On 04-02-23 12:06:19 CDT by Sae Aguilera
--- NOTE | 2023-04-02 12:11 | EKG ---
Test Date: 2023-04-01 Test Time: 00:12:10 [employer] Investigator: MJ MEASUREMENT RESULTS: Intervals: Rate: 105 VT: 132 QRSD: 166 QT: 416 QTc: 549 [place]: P: 61 VT: 132 QRS: 268 T: 83 INTERPRETIVE STATEMENTS: Atrial-sensed ventricular-paced rhythm with occasional atrial-paced complexes and with occasional premature ventricular complex Biventricular pacemaker detected Abnormal ECG Compared to ECG 02/18/2023 13:01:37 Ventricular premature complex(es) now present Electronically Signed On 04-02-23 12:06:19 CDT by Sae Aguilera
== END 2023-04-01 06:00 | disposition left against medical advice (07) | DRG 280 ==
LOC: ER 23:41 → ERHOLD 04-01 02:37
PROVIDERS: ADMIT Internal Medicine; ATTEND Internal Medicine
DX: I13.0 Hypertensive heart and chronic kidney disease with heart failure and stage 1 through stage 4 chronic kidney disease, or unspecified chronic kidney disease (principal); I21.4 Non-ST elevation (NSTEMI) myocardial infarction; I50.23 Acute on chronic systolic (congestive) heart failure; L03.115 Cellulitis of right lower limb; L97.929 Non-pressure chronic ulcer of unspecified part of left lower leg with unspecified severity; L97.919 Non-pressure chronic ulcer of unspecified part of right lower leg with unspecified severity; E11.622 Type 2 diabetes mellitus with other skin ulcer; I87.8 Other specified disorders of veins; I49.3 Ventricular premature depolarization; N18.9 Chronic kidney disease, unspecified; E11.22 Type 2 diabetes mellitus with diabetic chronic kidney disease; Z95.0 Presence of cardiac pacemaker; Z88.0 Allergy status to penicillin; Z79.02 Long term (current) use of antithrombotics/antiplatelets; Z53.21 Procedure and treatment not carried out due to patient leaving prior to being seen by health care provider; Z79.84 Long term (current) use of oral hypoglycemic drugs; Z79.01 Long term (current) use of anticoagulants; Z79.899 Other long term (current) drug therapy
CPT/HCPCS: 36415; 71045; 80048; 80076; 83880; 84484; 85025; 85610; 93005; 93970; 99285; J0690; J2405; J7050; P9047

== ENCOUNTER 2023-04-02 11:41 | Inpatient (IN) | payer OTHER ==
--- OUTSIDE RECORDS SUMMARY | 2023-04-02 11:45 | XMS REPORT | Continuity of Care Document ---
:1955 Author Organization [facility] t Address [address] [place] [address] Care Team Providers Name Role Phone Vladislav [...] GWENDOLYN HAYNES Attending Clinician Unavailable Doctor Unassigned, [place] Attending Clinician Unavailable RODRICK MURRELL Attending Clinician Unavailable Vaccine, [facility] Attending Clinician Unavailable Rodrick Murrell DO Attending Clinician Shanonn Drake RN Attending Clinician Unavailable DERECK CARRILLO [...] rs active active ity of problems problems [facility] Allergies, Adverse Reactions, Alerts Allergy Allergy Status [...] Start Date Stop Date Source Natural father [facility] Natural mother [facility] Social History Social Habit Start Date Stop Date Quantity Comments Source Gender identity [facility] Sexual orientation [facility] Alcohol intake 2023-01-05 2023-01-05 Ex-drinker [facility]into 00:00:00 00:00:00 (finding) Hospital History of Social 2023-01-05 2023-01-[address] function 00:00:00 00:00:00 Hospital Tobacco use and 2022-12-31 2022-12-31 Smokeless Shinto exposure 00:00:00 00:00:00 tobacco non-user Hospital Exposure to 2022-10-24 2022-11-03 Yes University of SARS-CoV-2 (event) 00:00:00 19:47:00 [facility] Sex Ass[birth year] At [birth year] Sh[facility] 00:00:00 00:00:00 Hospital Smoking Status Start Date Stop Date Source Tobacco smoking consumption Univ ersity [facility] unknown Branch Never smoked tobacco [facility] Medications Ordered Filled Start Stop Current Ordering Indication Dosage Frequency Signature Comments Components Source Medication Medication Date Date Medication? Clinician (SIG) Name Name apixaban 2023-0 Yes 5mg Q.5D Take 1 [facility] (ELIQUIS) [...] all 02 by mouth l daily. sacubitriL- 3-0 Yes 1{tbl} Q.5D Take 1 Me thodi [...] 02 times a l on inhaler day. apixaban 2023-0 Yes 5mg Q.5D Take 1 [facility] (ELIQUIS) [...] 2 l (two) times a day. metoprolol Yes 25mg QD Take 1 Metho di tartrate 3-02 tablet (25 st (LOPRESSOR) 17:08: mg total) H ospita 25 mg 02 by mouth l tablet daily. albuterol Yes 2{puff} Q4H Inhale 2 M ethodi (PROAIR 3-[address] HFA) 90 17:08: every 4 Hospita mcg/actuati 02 (four) l on inhaler hours as needed for wheezing. albuterol Yes 2{puff} Q.25D Inhale 2 Method[facility] (PROAIR 3-[address] HFA) 90 17:08: (four) Hospita mcg/actuati 02 times a l on inhaler day. azithromyci Yes [id number] 250mg Take 1 Univers n 250 mg 7-03 tablet by ity of tablet 00:00: mouth [place] 00 daily. Medical Branch azithromyci Yes [id number] 250mg Take 1 Univers n 250 mg 7-03 tablet by ity of tablet 00:00: mouth [place] 00 daily. Medical Branch azithromyci Yes [id number] 250mg Take 1 Univers n 250 mg 7-03 tablet by ity of tablet 00:00: mouth [place] 00 daily. Medical Branch azithromyci Yes [id number] 250mg Take 1 Univers n 250 mg 7-03 tablet by ity of tablet 00:00: mouth [place] 00 daily. Medical Branch codeine-gua 2021- No [id number] 5mL Take 5 mL Univers ifenesin 05-04-11 by mouth ity of 10-100 mg/5 00:00: [...] 4647 5mL Take 5 mL Univers ifenesin 05-04 by mouth ity of 10-100 mg/5 00:00: 04:59 every 6 [place] mL oral 00 :00 (six) Medical solution hours as Branch needed for Cough for up to 7 days. Indication s: acute pain Immunizations Ordered Filled Immunization Date Status Comments [facility] e Immunization Name Name SARS-COV-2 COVID-19 2022-04-07 Completed Unive rsity of MODERNA 0.25ML 00:00:00 [place] [facility] regis BOOSTER VACCINE Branch SARS-COV-2 COVID-19 2022-04-07 Completed Unive rsity of MODERNA 0.25ML 00:00:00 [facility] regis BOOSTER VACCINE Branch SARS-COV-2 COVID-19 2022-04-07 Completed Unive rsity of MODERNA 0.25ML 00:00:00 [facility] regis BOOSTER VACCINE Branch SARS-COV-2 COVID-19 2022-04-07 Completed Unive rsity of MODERNA 0.25ML 00:00:00 [facility] regis BOOSTER VACCINE Branch Vital Signs Vital Name Observation Time Observation Value Comments Source Systolic blood 2022-05-04 23:40:00 119 mm[Hg] Univer sity of pressure [facility] Diastolic blood 2022-05-04 23:40:00 71 mm[Hg] Unive rsity of pressure [facility] Heart rate 2022-05-04 23:40:00 108 /min [facility] Body temperature 2022-05-04 23:40:00 37.83 Anjali [facility] Respiratory rate 2022-05-04 23:40:00 25 /min [facility] Body height 2022-05-04 23:40:00 180.3 cm [facility] Body weight 2022-05-04 23:40:00 90.583 kg [facility] BMI 2022-05-04 23:40:00 27.85 kg/m2 [facility] Oxygen saturation in 2022-05-04 23:40:00 98 /min [facility] Arterial blood by [facility] Pulse oximetry Branch Systolic blood 2022-12-31 22:00:00 131 mm[Hg] [facility] pressure Diastolic blood 2022-12-31 22:00:00 80 mm[Hg] [facility] pressure Heart rate 2022-12-31 22:00:00 87 /min [facility] Respiratory rate 2022-12-31 22:00:00 17 /min [facility] Oxygen saturation in 2022-12-31 22:00:00 100 /min [facility] Arterial blood by Pulse oximetry Body temperature 2022-12-31 17:30:00 36.44 Anjali [facility] Body height 2022-12-31 12:01:00 180.3 cm [facility] Body weight 2022-12-31 12:01:00 89.721 kg [facility] BMI 2022-12-31 12:01:00 27.59 kg/m2 [facility] Procedures Procedure Date / Time Performing Clinician Source Performed POC GLUCOSE 2022-12-31 21:01:00 Dereck Carrillo spital ECG PRE/POST OP 2022-12-31 18:26:43 Dereck Carrillo spital POC GLUCOSE 2022-12-31 18:22:00 Dandy Carrillo Eva Meyer spital XR CHEST 1 VW PORTABLE 2022-12-31 18:05:00 Gerardo [facility] EP CARDIAC MODULATOR 2022-12-31 17:05:26 [facility] INSERT/REPLACE TYPE AND SCREEN 2022-12-31 12:18:00 Dereck Carrillo spital POC GLUCOSE 2022-12-31 12:10:00 Dereck Carrillo spital ECG 12-LEAD 2022-12-31 11:53:04 Dandy Carrillo Eva Meyer spital COVID-19 QUALITATIVE 2022-12-29 [facility]:52[facility]ABOLIC 2022-12-29 18:52:00 Gerardo [facility] PANEL CBC WITH PLATELET AND 2022-12-29 18:52:00 Gerardo [facility] DIFFERENTIAL MAGNESIUM LEVEL 2022-12-29 18:52:00 Dandy Carrillo [facility]into spital PROTHROMBIN TIME WITH 2022-12-29 18:52:00 Gerardo, Nadim [facility] INR ESTIMATED GFR 2022-12-29 18:52:00 Gerardo, Nadim [facility] Ho spital XR CHEST 2 VW 2022-05-05 00:04:00 Gwendolyn Hay[facility] Plan of Care Planned Activity Planned Date Details Comments Source Future Scheduled 2023-02-18 Hepatitis C screening [facility] Test 10:26:44 (procedure) [code = 739563849] Future Scheduled 2023-02-18 COLONOSCOPY SCREENING [facility] Test 10:26:44 [code = COLONOSCOPY SCREENING] Future Scheduled 2023-02-18 SHINGLES VACCINES (1 Met [facility] Test 10:26:44 of 2) [code = SHINGLES VACCINES (1 of 2)] Future Scheduled 2023-02-[address] [facility] Test 10:26:44 [code = INFLUENZA VACCINE] Future Scheduled 2023-02-18 Hepatitis C screening [facility] Test 10:26:44 (procedure) [code = 103886669] Future Scheduled 2023-02-18 COLONOSCOPY SCREENING [facility] Test 10:26:44 [code = COLONOSCOPY SCREENING] Future Scheduled 2023-02-18 SHINGLES VACCINES (1 Met [facility] Test 10:26:44 of 2) [code = SHINGLES VACCINES (1 of 2)] Future Scheduled 2023-02-[address] [facility] Test 10:26:44 [code = INFLUENZA VACCINE] Encounters Start End Encounter Admission Attending Care Care Encounter Source Date/Time Date/Time Type Type Clinicians Facility Department ID 2022-06-18 Outpatient Lauren, [facility] [id number] Common 09:10:17 Vladislav [facility] 2022-05-14 Outpatient Lauren, [facility] [id number] Common 09:11:03 Vladislav [facility] 2022-12-31 2022-12-31 Hospital Gerardo, 1.2.840.1 [id number] Methodi 05:43:00 17:08:00 Encounter Nadim 33202.1.[address] 3.430.2.7 Hospit a .3.396663 l .8 2022-12-31 2022-12-31 [facility] Gerardo, 1.2.840.1 [id number] Methodi 05:43:00 17:08:00 Encounter Nadpriscila 24793.1.[address] 3.430.2.7 Hospit a .3.341680 l .8 2022-12-31 2022-12-31 Anesthesia Dusty Flaherty 1.2.840.1 [id number] Methodi 08:15:00 11:36:00 Event Negra Shirley 78132.1.[address] 3.430.2.7 Hospit a .3.802780 l .8 2022-12-31 2022-12-31 Anesthesia Dusty Flaherty 1.2.840.1 [id number] Methodi 08:15:00 11:36:00 Event Negra Shirley 33346.1.[address] 3.430.2.7 Hospit a .3.619064 l .8 2022-12-31 2022-12-31 Surgery Gerardo, 1.2.840.1 [id number] Methodi 08:15:00 11:20:[address] 3.430.2.7 Hospit a .3.010591 l .8 2022-12-31 2022-12-31 Surgery Gerardo, 1.2.840.1 [id number] Methodi 08:15:00 11:20:[address] 3.430.2.7 Hospit a .3.136365 l .8 2022-12-31 2022-12-31 Travel 1.2.840.1 1.2.913.964 [id number] Methodi 00:00:00 00:00:[address] 3.430.2.7 0.2.7.3.698 Ho spita .3.820093 084.8 l .8 2022-12-31 2022-12-31 Travel 1.2.840.1 1.2.025.191 [id number] [id number] Methodi 00:00:00 00:00:[address] 3.430.2.7 0.2.7.3.698 Ho spita .3.802657 084.8 l .8 2022-12-29 2022-12-29 Lab Gerardo, 1.2.840.1 [id number] Methodi 12:25:00 12:30:[address] 3.430.2.7 Hospit a .3.677538 l .8 2022-12-29 2022-12-29 Lab Gerardo, 1.2.840.1 [id number] Methodi 12:25:00 12:30:[address] 3.430.2.7 Hospit a .3.503483 l .8 2022-12-29 2022-12-29 Travel 1.2.840.1 1.2.697.380 [id number] Methodi 00:00:00 00:00:[address] 3.430.2.7 0.2.7.3.698 Ho spita .3.914563 084.8 l .8 2022-12-29 2022-12-29 Travel 1.2.840.1 1.2.425.846 1544 [id number] Methodi 00:00:00 00:00:[address] 3.430.2.7 0.2.7.3.698 Ho spita .3.560053 084.8 l .8 2022-12-15 2022-12-15 Community Gerardo, 1.2.840.1 [id number] Methodi 00:00:00 00:00:00 Orders Nadim 54515.1.[address] 3.430.2.7 Hospit a .3.055313 l .8 2022-12-15 2022-12-15 Community Gerardo, 1.2.840.1 [id number] Methodi 00:00:00 00:00:00 Orders Nadim 54672.1.[address] 3.430.2.7 Hospit a .3.041105 l .8 2022-11-03 2022-11-03 Laboratory Only, Ang Db Test [facility] 1.2.8 40.114 [id number] Univers 19:45:00 20:00:00 Only Samuel Segura [facility] 350.1.13.10 ity [place] 4.2.7.2.686 Isidro as SAE?BLEA [id number] [address] MEDICAL OFFICE BUILDING 2022-11-03 2022-11-03 Outpatient R ALDO [facility] [id number] Univers 19:45:00 19:45:00 [facility] 2022-08-13 2022-08-13 Travel 1.2.840.1 1.2.969.942 [id number] Methodi 00:00:00 00:00:[address] 3.430.2.7 0.2.7.3.698 Ho spita .3.785911 084.8 l .8 2022-08-13 2022-08-13 Travel 1.2.840.1 1.2.078.216 [id number] [id number] Methodi 00:00:00 00:00:[address] 3.430.2.7 0.2.7.3.698 Ho spita .3.930739 084.8 l .8 2022-05-05 2022-05-05 Telephone Nazia Tenorio 1.2.840.114 [id number] Univers 00:00:00 00:00:00 RHONDA 350.1.13.10 it y of [facility] 4.2.7.2.686 Isidro as [id number] [address] 2022-05-04 2022-05-04 Replaced by [facility] 1.2.840.114 [id number] Univers 18:54:07 23:59:00 Encounter Gwendolyn HEALTH 350.1.13.10 ity of [place] 4.2.7.2.686 Isidro as SAE?BLEA [id number] Ne diclara SANTOSEY [address] MEDICAL OFFICE [facility] 2022-05-04 2022-05-04 Urgent Gwendolyn Haynes [facility] 1.2.840.114 [id number] Univers 18:40:00 19:04:20 [facility] 350.1.13.10 ity of [place] 4.2.7.2.686 Isidro as SAE?BLEA [id number] Ne diclara KNEY [address] MEDICAL OFFICE [facility] 2022-05-04 2022-05-04 Outpatient R DALLAS [facility] [id number] Univers 18:40:00 19:04:20 GWENDOLYN [facility] 2022-05-04 2022-05-04 Outpatient Gisela HAYNES [facility] [id number] Univers 18:54:07 18:54:07 GWENDOLYN [facility] 2022-05-04 2022-05-04 Orders Doctor AFIA 1.2.840.114 [id number] Univers 00:00:00 00:00:00 Only Unassigned, RHONDA 350.1.13.10 ity of [place] [facility] 4.2.7.2.686 Isidro as [id number] [address] 2022-04-08 2022-04-08 Outpatient Gisela MURRELL [facility] [id number] Univers 08:30:00 08:30:00 RODRICK sotomayor [facility] 2022-04-07 2022-04-07 Outpatient Gisela MURRELL [facility] [id number] Univers 15:30:00 16:06:14 RODRICK sotomayor [facility] 2022-04-07 2022-04-07 Imm/Inj Vaccine, [facility] 1.2.840.114 [id number] Univers 15:30:00 15:40:00 Visit Rodrick Murrell 350.1.13 .10 [facility] 4.2.[place].2.686 [place] PROF[place] [id number] Ne diclara NAL [address] [facility] 2021-09-09 2021-09-09 Outpatient Gisela MURRELL [facility] [id number] Univers 08:50:00 08:50:00 RODRICK [facility] 2021-07-15 2021-07-15 Letter AFIA Drake 1.2.840.114 [id number] Univers 00:00:00 00:00:00 (Out) Shannon ELLIS 350.1.13.10 it y of [facility] 4.2.7.2.686 Isidro as [id number] [address] 2021-07-13 2021-07-13 Laboratory Only, Ang Db Test [facility] 1.2.8 40.114 [id number] Univers 19:34:50 19:49:50 Only [place] Sooqini 350.1.13.10 ity of [place] 4.2.7.2.686 Isidro as Sae?Blea [id number] [address] Medical Office Building 2021-07-13 2021-07-13 Outpatient R DALLAS [facility] [id number] Univers 19:30:00 19:30:00 [facility] Results Test Description Test Time Test Comments Results Result Comments Source ECG Pre/Post Op-Tomorrow 2022-12-31 22:33:35 Test Item Value Reference Range Interpretation Comme nts Ventricular rate (test code = 253) 81 Atrial rate (test code = 255) 81 MN interval (test code = 266) 124 QRSD [...] data quality, interpretat ion may be adversely fyfwhhqb-Movrwk-tvjdno ventricular-paced rhythm-Biventricular pacemaker detected-Abnormal ECG-In automated comparison with ECG of 31-DEC-2022 05:53,-Vent. rate has decreased BY 5 BPM- [facility]Post [id number] 22:33:35 Test Item Value Reference Range Interpretation Comments Ventricular rate 81 (test code = 253) Atrial rate (test 81 code = 255) MN interval (test 124 code = 266) QRSD interval (test 172 code = 260) QT interval (test 466 code = 264) QTC interval (test 541 code = 265) P axis 1 (test code = 73 267) QRS axis 1 (test code 251 = 268) T wave axis (test 98 code = 270) EKG impression (test ^^^ Poor data quality, code = 273) interpretation may be adversely ymfxfhds-Trfpqy-wnqkid ventricular-paced rhythm-Biventricular pacemaker detected-Abnormal ECG-In automated comparison with ECG of 31-DEC-2022 05:53,-Vent. rate has decreased BY 5 BPM- [facility]2023-03-01 21:02:00 Test Item Value Reference Range Interpretation Comments POC glucose (test code 300 mg/dL 65-99 H Opera tor Name: = 32438-4) Alvarez Urias ID : [id number] able: No Action Neede d Lab Interpretation Abnormal (test code = 90896-7) [facility]2023-03-01 21:02:00 Test Item Value Reference Range Interpretation Comments POC glucose (test code 300 mg/dL 65-99 H Opera tor Name: = 76977-5) Alvarez PaulineDevice ID : [id number] able: No Action Neede d Lab Interpretation Abnormal (test code = 64405-7) [facility] 12 [id number] 12:54:20 Test Item Value Reference Range Interpretation Comments Ventricular rate (test 86 code = 253) Atrial rate (test code 86 = 255) MN interval (test code 150 = 266) QRSD [...] 08:17,-Electronic ventricular pacemaker has replaced Sinus rhythm- [facility] [id number] 12:54:20 Test Item Value Reference Range Interpretation Comments Ventricular rate (test 86 code = 253) Atrial rate (test code 86 = 255) MN interval (test code 150 = 266) QRSD [...] 08:17,-Electronic ventricular pacemaker has replaced Sinus rhythm- [facility] [id number] 23:04:43 Test Item Value Reference Interpretation Comments Range Interpretation Negative results do (test code = not preclude COVID-19 4818224) infection and should not be used asthe sole basis for treatment or other patient management decisions. Negativeresults must be combined with clinical observations, patient history, andepidemiological information. COVID-19 Not-Detected Not-Detected DISCLAIMER:This qualitative RT-PCR test was result (test code performed using = 73731-1) the [employer] SARS-CoV-2 Assa y (AIFOTEC). This assay is available for i n vitro diagnosti c use under Food and Drug Administration (FDA) Emergency Use Authorizati on (EUA) and has been verified f or clinical use by the [facility]. Information on the FDA policy for diagnostic tests for coronavirus disease- 2019 i s available at:https://www. fd a.gov/medical-d ev ices/emergency- si tuations-medica l- devices/faqs-di ag nostic-testing- sa rs-cov-2It is critical that health care providers and patients review the applicable fact sheet(s) i n interpreting or understanding t he test results th at are available upon request.METHODO LO GY:This assay utilizes francisco ts for nucleic aci d extraction, amplification, and real-time reverse real estate agency principal polymerase augusta n reaction. COVID-19 See link below for PDF Case Number: qualitative RT-PCR Lab Report [id number] PDF (test code = 7070) [facility] [id number] 23:04:43 Test Item Value Reference Interpretation Comments Range Interpretation Negative results do (test code = not preclude COVID-19 7955604) infection and should not be used asthe sole basis for treatment or other patient management decisions. Negativeresults must be combined with clinical observations, patient history, andepidemiological information. COVID-19 Not-Detected Not-Detected DISCLAIMER:This qualitative RT-PCR test was result (test code performed using = 29394-2) the [employer] m SARS-CoV-2 Assa y (AIFOTEC). This assay is available for i n vitro diagnosti c use under Food and Drug Administration (FDA) Emergency Use Authorizati on (EUA) and has been verified f or clinical use by the [facility]. Information on the FDA policy for diagnostic tests for coronavirus disease- 2019 i s available at:https://www. fd a.gov/medical-d ev ices/emergency- si tuations-medica l- devices/faqs-di ag nostic-testing- sa rs-cov-2It is critical that health care providers and patients review the applicable fact sheet(s) i n interpreting or understanding t he test results th at are available upon request.METHODO LO GY:This assay utilizes reagen ts for nucleic aci d extraction, amplification, and real-time reverse real estate agency principal polymerase augusta n reaction. COVID-19 See link below for PDF Case Number: qualitative RT-PCR Lab Report [id number] PDF (test code = 7070) [facility] RNA [Presence] in Respiratory specimen by LORETO with probe [id number] 17:04:43 Test Item Value Reference Range Interpretation Comments SARS-CoV-2 (COVID-19) RNA Not detected [Presence] in Respiratory specimen by LORETO with probe detection (test code = 12812-4) Whether patient is employed in a Unknown healthcare setting (test code = 60343-5) Whether the patient has symptoms Unknown related to condition of interest (test code = 61124-2) Whether the patient was Unknown hospitalized for condition of interest (test code = 71337-3) Whether the patient was admitted Unknown to intensive care unit (ICU) for condition of interest (test code = 07076-1) Whether patient resides in a Unknown congregate care setting (test code = 65537-1) status (test code = Unknown 59337-1) Date and time of symptom onset Unknown (test code = 38201-9) MARY GAMEZ
[2023-04-02] MEDS ORDERED: D10W 125 ML IV PRN (11:57)
[2023-04-02] MEDS ORDERED: POLYETHYL GLY 3350 17 GM/DOSE PO PRN (12:00)
[2023-04-02] MEDS ORDERED: ONDANSETRON 4 MG (ODT) TAB PO PRN (12:00)
[2023-04-02] MEDS ORDERED: GLUCAGON 1 MG/VIAL IM PRN ×2 (12:00→12:22)
[2023-04-02] MEDS ORDERED: ONDANSETRON 4 MG/2 ML VIAL IV PRN (12:00)
[2023-04-02] MEDS ORDERED: NACHLORIDE 0.45% 1,000 ML IV SCH (12:00)
[2023-04-02] MEDS ORDERED: DIPHENHYDRAMINE 25 MG TAB/CAP PO PRN (12:00)
[2023-04-02] MEDS ORDERED: LOPERAMIDE HCL 2 MG CAPSULE PO PRN (12:00)
[2023-04-02] MEDS ORDERED: D50W 25 GM/50 ML SYRINGE IV PRN (12:22)
[2023-04-02 12:39] VITALS: BMI 23.7
[2023-04-02] MEDS: Meropenem 1,000 MG in NA CHLORIDE 0.9% 100 ML IV SCH ×2 (13:00→20:13)
[2023-04-02] MEDS: ACETAMINOPHEN 325 MG TABLET PO PRN (13:00)
[2023-04-02] MEDS: INSULIN -REGULAR HUMAN 50 UNIT/0.5 ML ML SQ SCH ×3 (13:00→20:13)
[2023-04-02] MEDS: MEDIHONEY 44 ML TOPICAL TUBE TOP SCH (13:06)
--- NOTE | 2023-04-02 13:14 | RAD REPORT ---
EXAM DESCRIPTION: [facility] Views)04/02/2023 12:49 pm CLINICAL HISTORY: New admission. History of hypertension and heart disease. COMPARISON: Chest Single View dated 04/01/2023; Chest Pa And Lat (2 Views) dated 02/18/2023; Chest Sin gle View dated 09/20/2022; Chest Pa And Lat (2 Views) dated 03/06/2022 TECHNIQUE: PA and lateral views of the chest. FINDINGS: Posteriorly situated opacity projecting along the superior aspect of the lower lobe on lat eral view, could be on the right, obscured by the right chest wall pacer/ AICD battery pack. No pneum othorax or effusion. The heart is at the upper limit of normal, decreased in size since the prior rad iograph. Mediastinal contours are otherwise unchanged. IMPRESSION: Probable superior segment right lower lobe airspace opacification as above, raises rocky rn for pneumonia.
[2023-04-02 14:10] LABS: Absolute Lymphocytes (CBC) 0.4 K/uL (0.7-4.9); Hematocrit 28.6 % (39.6-49.0); Lymphocytes % 2.4 % (15.3-44.8); MCV 95.4 fL (80-100); MPV 8.1 fL (7.6-11.3)
[2023-04-02 14:16] LABS: Protime INR 1.6
[2023-04-02 15:43] LABS: ALT/SGPT 27 U/L (16-61); AST/SGOT 19 U/L (15-37); Albumin 2.8 g/dL (3.4-5.0); Alkaline Phosphatase 200 U/L (45-117); BUN Blood Urea Nitrogen 72 mg/dL (7-18); Bicarbonate 25 mEq/L (21-32); Bilirubin Direct 1.1 mg/dL (0-0.2); Bilirubin Indirect, Calculated 0.9 mg/dL (0.2-0.8); Glomerular Filtration Rate 44 ml/min (=/>90); Glucose Level 252 mg/dL (74-106); Phosphorus 2.3 mg/dL (2.5-4.9); Potassium 3.5 mEq/L (3.5-5.1); Protein, Total 6.9 g/dL (6.4-8.2); Sodium Level 136 mEq/L (136-145); Thyroid Stimulating Hormone 0.838 uIU/mL (0.358-3.740)
[2023-04-02 16:07] LABS: Urine Bacteria <20 /HPF (<20); Urine RBC <5 /HPF (None Seen)
[2023-04-02] MEDS ORDERED: INSULIN -REGULAR HUMAN 50 UNIT/0.5 ML ML SQ SCH (16:30)
[2023-04-02 17:09] LABS: Specific Gravity 1.018 (1.005-1.030); Urine Bilirubin NEGATIVE (Negative); Urine Blood Negative (Negative); Urine Clarity Clear (Clear); Urine Color Yellow (Yellow); Urine Glucose NEGATIVE (Negative); Urine Protein 1+ (Negative); Urine Urobilinogen 2+ (Normal)
[2023-04-03] MEDS: ACETAMINOPHEN 325 MG TABLET PO PRN ×2 (02:39→20:23)
[2023-04-03] MEDS: INSULIN -REGULAR HUMAN 50 UNIT/0.5 ML ML SQ SCH ×4 (07:30→20:23)
[2023-04-03] MEDS ORDERED: ALBUTEROL INHALER 60 PUFF/8 GM IH PRN (07:49)
[2023-04-03] MEDS ORDERED: LACTOBACILLUS/ACIDOPHILUS TAB PO PRN (07:49)
[2023-04-03] MEDS: Meropenem 1,000 MG in NA CHLORIDE 0.9% 100 ML IV SCH ×2 (08:42→20:25)
[2023-04-03] MEDS: VITAMIN D 1000 UNIT TAB PO SCH (08:43)
[2023-04-03] MEDS: SACUBITRIL/VALSARTAN 49/51 MG TAB PO SCH ×2 (08:43→20:26)
[2023-04-03] MEDS: allopurinoL 300 MG TAB PO SCH (08:43)
[2023-04-03] MEDS: HOME MED 1 EA UNK (Dapagliflozin Propanediol [Farxiga] 5 MG Tablet) PO SCH (08:43)
[2023-04-03] MEDS: METOPROLOL TAR 25 MG TAB PO SCH ×2 (08:43→20:26)
[2023-04-03] MEDS: MEDIHONEY 44 ML TOPICAL TUBE TOP SCH (08:44)
--- NOTE | 2023-04-03 14:57 | RAD REPORT ---
EXAM DESCRIPTION: CT - Lower Ext Wo Con W/ Mpr - 04/03/2023 1:47 pm CLINICAL HISTORY: Right heel pain. Lower leg edema. History of diabetes. Evaluate for osteomyelitis COMPARISON: Extrem Venous W Compress Mao dated 04/01/2023 TECHNIQUE: Axial thin cut CT images of the right lower extremity (attention to the right foot and an kle) were obtained without IV contrast. Multiplanar reformats were generated and reviewed. All CT scans are performed using dose optimization technique as appropriate and may include automated exposure control or mA/KV adjustment according to patient size. FINDINGS: No soft tissue gas or evidence of a significant ulcer although some skin irregularity is s een along the heel both on the right than the left. Pronounced subcutaneous soft tissue edema throughout the foot, ankle, and included lower legs, most p ronounced along the dorsum and medial aspect of the foot. Vascular calcifications. No acute fracture or dislocation. Subchondral small cyst along the head of the calcaneus could repres ent a small J old, of degenerative nature. No other suspicious osseous lesions or destructive changes . Chronic appearing subperiosteal deposition along the distal tibiofibular syndesmosis and posterior margin of the tibial and metaphysis, could relate to remote ligamentous injury. No significant joint effusion. Mineralization of the soft tissues along the lateral clear space and p osterior ankle joint line, nonspecific, and could relate to depositional arthropathy or sequelae of c hronic infectious arthritis sequelae. An unfused os trigonum is noted. Joint alignment is maintained scattered mild degenerative changes. Small calcaneal spur. IMPRESSION: No acute osseous abnormality. Pronounced subcutaneous soft tissue edema. Underlying cellulitis cannot be ruled out. Chronic findings as above, including mineralization along the lateral ankle joint clear space and pos terior ankle joint line, which could relate to depositional arthropathy such as CPPD, or sequelae of remote infection.
[2023-04-03 16:14] LABS: Potassium 4.7 mEq/L (3.5-5.1)
--- NOTE | 2023-04-03 16:47 | P.PN ---
Subjective Date of Service: 04/03/23 Chief Complaint: PAIN R FOOT. Subjective: No new changes VEENA IS A DIABETIC WITH CHF WITH EF OF 15%. HE IS PROGRESSIVELY GETTING WORSE. HE STEPPED ON A PEBBLE IN HIS FARM AND DEVELOPED PAIN AFTER THAT WHICH IS SEVERE. HE IS LOSING WEIGHT. HE HAS WORSENED IN HIS CONDITION DESPITE MANY EFFORTS FROM ME AND CARIDOLOGIST. Review of Systems 10-point ROS is otherwise unremarkable General: Weakness, Malaise Physical Examination - Vital Signs Temperature: 97.2 F Blood Pressure: 95/63 Pulse: 98 Respirations: 14 Pulse Ox (%): 95 - Physical Exam General: Oriented x3, Cachectic, Moderate distress HEENT: Atraumatic, PERRLA, EOMI Neck: Supple, JVD not distended Respiratory: Clear to auscultation bilaterally, Normal air movement Cardiovascular: Regular rate/rhythm, Normal S1 S2 Gastrointestinal: Normal bowel sounds, No tenderness Musculoskeletal: No tenderness Integumentary: No rashes, Other (R FOOT SEVERE TENDERENESS. ) Neurological: Normal speech, Normal tone, Normal affect Lymphatics: No axilla or inguinal lymphadenopathy - Studies Laboratory Data (last 24 hrs) 04/03/23 15:14: Sodium 136, Potassium 4.7 D, BUN 65 H, Creatinine 1.30, Glucose 196 H Medications List Reviewed: Yes Assessment And Plan - Current Problems (Diagnosis) (1) Diabetic foot infection Current Visit: Yes Status: Acute Plan: HIS WBC COUNT FU IN AM. CLINICALLY HE IS BETTER. (2) Diabetic infection of right foot Current Visit: Yes Status: Acute (3) Cardiac cirrhosis Current Visit: No Status: Chronic (4) Cardiomyopathy Current Visit: No Status: Chronic Plan: HIS PROGNOSIS IS POOR WITH LOW EF 15%. HE IS FATIGUED, WEAK AND HAS POOR LIFE SPAN. I TRIED TO GET HIS MORE HELP WITH HOSPICE AT HOME. 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 HE WILL DECIDE SOON.
[2023-04-03] MEDS: ATORVASTATIN 40 MG TAB PO SCH (20:24)
[2023-04-04 04:15] LABS: Absolute Lymphocytes (CBC) 0.4 K/uL (0.7-4.9); Lymphocytes % 3.4 % (15.3-44.8); MPV 8.3 fL (7.6-11.3); RBC Red Blood Cell Count 3.12 M/uL (4.33-5.43)
[2023-04-04 04:18] LABS: Potassium 4.7 mEq/L (3.5-5.1)
[2023-04-04] MEDS: ACETAMINOPHEN 325 MG TABLET PO PRN ×2 (06:28→20:58)
[2023-04-04] MEDS: Meropenem 1,000 MG in NA CHLORIDE 0.9% 100 ML IV SCH ×2 (08:56→20:58)
[2023-04-04] MEDS: SACUBITRIL/VALSARTAN 49/51 MG TAB PO SCH ×2 (08:56→20:08)
[2023-04-04] MEDS: allopurinoL 300 MG TAB PO SCH (08:57)
[2023-04-04] MEDS: VITAMIN D 1000 UNIT TAB PO SCH (08:57)
[2023-04-04] MEDS: INSULIN -REGULAR HUMAN 50 UNIT/0.5 ML ML SQ SCH ×4 (08:58→20:57)
[2023-04-04] MEDS: METOPROLOL TAR 25 MG TAB PO SCH ×2 (08:58→20:09)
[2023-04-04] MEDS: HOME MED 1 EA UNK (Dapagliflozin Propanediol [Farxiga] 5 MG Tablet) PO SCH (09:00)
[2023-04-04] MEDS: MEDIHONEY 44 ML TOPICAL TUBE TOP SCH (09:03)
[2023-04-04] MEDS: ATORVASTATIN 40 MG TAB PO SCH (20:59)
--- NOTE | 2023-04-04 21:12 | P.PN ---
Subjective Date of Service: 04/04/23 Chief Complaint: PAIN R FOOT. Subjective: Improving VEENA IS A DIABETIC WITH CHF WITH EF OF 15%. HE IS PROGRESSIVELY GETTING WORSE. HE STEPPED ON A PEBBLE IN HIS FARM AND DEVELOPED PAIN AFTER THAT WHICH IS SEVERE. HE IS LOSING WEIGHT. HE HAS WORSENED IN HIS CONDITION DESPITE MANY EFFORTS FROM ME AND CARIDOLOGIST. HIS PAIN IS ONLY AT THE HEEL ARE WHERE THERE IS A PUNCTURE WOUND FROM PEBBLE INJURY. Review of Systems 10-point ROS is otherwise unremarkable General: Weakness Physical Examination - Vital Signs Temperature: 98 F Blood Pressure: 102/56 Pulse: 113 Respirations: 18 Pulse Ox (%): 95 - Physical Exam General: Oriented x3, Cachectic, Mild distress HEENT: Atraumatic, PERRLA, EOMI Neck: Supple, JVD not distended Respiratory: Clear to auscultation bilaterally, Normal air movement Cardiovascular: Regular rate/rhythm, Normal S1 S2 Gastrointestinal: Normal bowel sounds, No tenderness Musculoskeletal: No tenderness Integumentary: No rashes, Arterial ulcer (ELVIA LEG ULCERS. SLOUGH OR FIBRIN , DRY. LACK OF DP AND PT PULSE R LEG. ) Neurological: Normal speech, Normal tone, Normal affect Lymphatics: No axilla or inguinal lymphadenopathy - Studies Laboratory Data (last 24 hrs) 04/04/23 03:47: Sodium 136, Potassium 4.7, BUN 65 H, Creatinine 1.27, Glucose 282 H 04/04/23 03:47: WBC 12.10 H, Hgb 9.6 L, Hct 30.0 L, Plt Count 163 Microbiology Data (last 24 hrs): 04/02/23 14:25 Clean Catch Urine [place] Count - Final No growth. 04/02/23 14:25 Clean Catch Urine - Final No growth. Medications List Reviewed: Yes Assessment And Plan - Current Problems (Diagnosis) (1) Diabetic foot infection Current Visit: Yes Status: Acute Plan: HIS WBC COUNT FU IN AM. CLINICALLY HE IS BETTER. (2) Diabetic infection of right foot Current Visit: Yes Status: Acute (3) Cardiac cirrhosis Current Visit: No Status: Chronic (4) Cardiomyopathy Current Visit: No Status: Chronic Plan: HIS PROGNOSIS IS POOR WITH LOW EF 15%. HE IS FATIGUED, WEAK AND HAS POOR LIFE SPAN. I TRIED TO GET HIS MORE HELP WITH HOSPICE AT HOME. HE IS A VERY [place] MAN AND SAYS HE IS READY WHEN GOD IS READY FOR HIM. HE WILL DECIDE SOON. 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 THEY COULD NOT DO IT ON THE . MAY NEED VASCULAR RADIOLOGY.
[2023-04-04 21:18] VITALS: O2SAT 95
[2023-04-05] MEDS: ACETAMINOPHEN 325 MG TABLET PO PRN ×2 (03:57→21:24)
[2023-04-05 04:26] LABS: Absolute Lymphocytes (CBC) 0.4 K/uL (0.7-4.9); Hematocrit 33.9 % (39.6-49.0); Lymphocytes % 3.7 % (15.3-44.8); MCV 95.8 fL (80-100); MPV 7.8 fL (7.6-11.3); RBC Red Blood Cell Count 3.54 M/uL (4.33-5.43)
[2023-04-05 05:06] LABS: Potassium 4.2 mEq/L (3.5-5.1)
--- NOTE | 2023-04-05 08:24 | RAD REPORT ---
EXAM DESCRIPTION: US - Lower Extremity Arterial Bilat - 04/05/2023 6:50 am CLINICAL HISTORY: Open wounds. Evaluate for peripheral vascular disease COMPARISON: Lower Ext Wo Con W/ Mpr dated 04/03/2023 TECHNIQUE: Bilateral lower extremity arterial Doppler examination was performed with josé manuel velasquez FINDINGS: Triphasic waveforms are seen throughout the proximal right lower extremity to the level of the mid SF A, and the entirety of the left lower extremity arterial systems to the level of the dorsalis pedis a rtery. The distal right SFA to the dorsalis pedis artery show biphasic flow. Up to moderate atheroscl erotic calcified plaque along the lower extremities particularly proximally. IMPRESSION: Mild peripheral vascular disease on the right. No evidence of significant peripheral vas cular disease on the left.
[2023-04-05] MEDS: HOME MED 1 EA UNK (Dapagliflozin Propanediol [Farxiga] 5 MG Tablet) PO SCH (09:00)
[2023-04-05] MEDS: MEDIHONEY 44 ML TOPICAL TUBE TOP SCH (09:00)
[2023-04-05] MEDS: carvediloL 3.125 MG TAB PO SCH ×2 (09:07→17:57)
[2023-04-05] MEDS: allopurinoL 300 MG TAB PO SCH (09:08)
[2023-04-05] MEDS: VITAMIN D 1000 UNIT TAB PO SCH (09:08)
[2023-04-05] MEDS: Meropenem 1,000 MG in NA CHLORIDE 0.9% 100 ML IV SCH ×2 (09:08→21:25)
[2023-04-05] MEDS: Mupirocin NASAL 2 APPL/1 GM TUBE NAS SCH ×2 (09:09→21:25)
[2023-04-05] MEDS: SACUBITRIL/VALSARTAN 49/51 MG TAB PO SCH ×2 (09:09→21:24)
[2023-04-05] MEDS: INSULIN -REGULAR HUMAN 50 UNIT/0.5 ML ML SQ SCH ×4 (09:09→21:32)
--- NOTE | 2023-04-05 12:01 | P.PN ---
Subjective Date of Service: 04/05/23 Chief Complaint: PAIN R FOOT. Subjective: Improving VEENA IS A DIABETIC WITH CHF WITH EF OF 15%. HE IS PROGRESSIVELY GETTING WORSE. HE STEPPED ON A PEBBLE IN HIS FARM AND DEVELOPED PAIN AFTER THAT WHICH IS SEVERE. HE IS LOSING WEIGHT. HE HAS WORSENED IN HIS CONDITION DESPITE MANY EFFORTS FROM ME AND CARIDOLOGIST. HIS PAIN IS ONLY AT THE HEEL ARE WHERE THERE IS A PUNCTURE WOUND FROM PEBBLE INJURY. HIS PAIN HAS IMPROVED SOME. HE HAS NO CHEST PAIN. NO DYSPNEA. Review of Systems 10-point ROS is otherwise unremarkable General: Weakness Physical Examination - Vital Signs Temperature: 97.0 F Blood Pressure: 103/64 Pulse: 103 Respirations: 14 Pulse Ox (%): 96 - Physical Exam General: Oriented x3, Mild distress, Moderate distress HEENT: Atraumatic, PERRLA, EOMI Neck: Supple, JVD not distended Respiratory: Clear to auscultation bilaterally, Normal air movement Cardiovascular: Regular rate/rhythm, Normal S1 S2, Abnormal pulses (R LEG NO PULSE DP AND PT.) Gastrointestinal: Normal bowel sounds, No tenderness Musculoskeletal: No tenderness Integumentary: No rashes, Other (HEEL HAS NO OPEN WOUND BUT TENDER AT REGION WHERE HE HAD PEBBLE INJURY AND IT SEVERELY TENDER. BOTH LEGS HAVE ULCERS. R LEG LATERALLY HAS LARGE SUPERFICIAL BUT NECROTIC ULCER. ) Neurological: Normal speech, Normal tone, Normal affect Lymphatics: No axilla or inguinal lymphadenopathy - Studies Laboratory Data (last 24 hrs) 04/05/23 04:12: Sodium 138, Potassium 4.2, BUN 56 H, Creatinine 1.28, Glucose 152 H 04/05/23 04:12: WBC 10.30, Hgb 10.9 L D, Hct 33.9 L, Plt Count 202 Microbiology Data (last 24 hrs): 04/02/23 14:25 Clean Catch Urine [place] Count - Final No growth. 04/02/23 14:25 Clean Catch Urine - Final No growth. Medications List Reviewed: Yes Assessment And Plan - Current Problems (Diagnosis) (1) Diabetic foot infection Current Visit: Yes Status: Acute Plan: HIS WBC COUNT FU IN AM. CLINICALLY HE IS BETTER. I TALKED TO DR. LEONE AND HE CAN DO PVD- ATHERECTOMY. HE CAN DO ON THU. PATIENT IS GETTING DOPPLER IN AM HE DOES NOT WANT TO STAY IN HOSPITAL. HE WILL DO OUTPATIENT THIS WEEK. (2) Diabetic infection of right foot Current Visit: Yes Status: Acute (3) Cardiac cirrhosis Current Visit: No Status: Chronic (4) Cardiomyopathy Current Visit: No Status: Chronic Plan: HIS PROGNOSIS IS POOR WITH LOW EF 15%. HE IS FATIGUED, WEAK AND HAS POOR LIFE SPAN. I TRIED TO GET HIS MORE HELP WITH HOSPICE AT HOME. HE IS A VERY [place] MAN AND SAYS HE IS READY WHEN GOD IS READY FOR HIM. HE WILL DECIDE SOON. 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 THEY COULD NOT DO IT ON THE . MAY NEED VASCULAR RADIOLOGY.
[2023-04-05] MEDS ORDERED: carvediloL 3.125 MG TAB PO SCH (18:00)
[2023-04-05] MEDS: ATORVASTATIN 40 MG TAB PO SCH (21:24)
[2023-04-06] MEDS: ACETAMINOPHEN 325 MG TABLET PO PRN (02:00)
[2023-04-06] MEDS: carvediloL 3.125 MG TAB PO SCH (06:18)
[2023-04-06 06:48] LABS: Absolute Lymphocytes (CBC) 0.5 K/uL (0.7-4.9); Hematocrit 30.7 % (39.6-49.0); Lymphocytes % 4.3 % (15.3-44.8); MCV 95.9 fL (80-100); MPV 8.2 fL (7.6-11.3)
[2023-04-06] MEDS: VITAMIN D 1000 UNIT TAB PO SCH (08:16)
[2023-04-06] MEDS: allopurinoL 300 MG TAB PO SCH (08:16)
[2023-04-06] MEDS: SACUBITRIL/VALSARTAN 49/51 MG TAB PO SCH (08:16)
[2023-04-06] MEDS: INSULIN -REGULAR HUMAN 50 UNIT/0.5 ML ML SQ SCH (08:16)
[2023-04-06] MEDS: Mupirocin NASAL 2 APPL/1 GM TUBE NAS SCH (08:16)
[2023-04-06] MEDS: Meropenem 1,000 MG in NA CHLORIDE 0.9% 100 ML IV SCH (08:17)
[2023-04-06] MEDS: MEDIHONEY 44 ML TOPICAL TUBE TOP SCH (08:18)
[2023-04-06] MEDS: HOME MED 1 EA UNK (Dapagliflozin Propanediol [Farxiga] 5 MG Tablet) PO SCH (08:18)
[2023-04-06 08:40] VITALS: BP 110/60; TEMP 97.1
[2023-04-06] MEDS ORDERED: COLCHICINE 0.6 MG TAB PO SCH (09:00)
[2023-04-06 09:16] LABS: Potassium 4.3 mEq/L (3.5-5.1)
[2023-04-06 10:37] LABS: Blood Morphology Comment NOT SEEN (NOT SEEN); Platelet Estimate ADEQ; White Blood Cell Scan OK (OK)
--- NOTE | 2023-04-06 12:50 | P.DS ---
Admission Date: 04/04/23 Discharge Date: 04/06/23 Disposition: ROUTINE DISCHARGE Discharge Condition: FAIR Reason for Admission: PAIN R FOOT. 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 HE COMES TO OFFICE AFTER STEPPING ON PEBBLE IN HIS FARM, HAS SEVERE PAIN THAT HAS IMPROVED WITH MERREM. WE TRIED PICC LINE THAT CAN'T BE PLACED HAS DEFIBRILLATOR AND A END STAGE HEART FAILURE THERAPY EQUPMENT IN THE VEINS. HE WANTS TO GO HOME. HE WILL TAKE LEVAQUIN, ALSO HE HAS GOUT ATTACK AND WILL TAKE COLCHICINE FOR IT. I ADVISED HOSPICE TO HIM AND HE IS THINKING ABOUT IT. HE HAS MULTIPLE ULCERS IN LES THAT ARE NECROTIC AND NOT HEALING. HE WILL HAVE HOME HEALTH AND APPLY MEDIHONEY TO IT DAILY. HE WILL ALSO SEE DR LEONE BUT PVD STUDY WAS ONLY MILD POSITIVE. HE IS STABLE TO GO HOME WITH POOR PROGNOSIS. Vital Signs/Physical Exam: Temp Pulse Resp BP Pulse Ox 97.1 F 87 16 110/60 97 04/06/23 08:00 04/06/23 08:00 04/06/23 08:00 04/06/23 08:00 04/06/23 08:00 Laboratory Data at Discharge: WBC 12.10 thou/uL (4.3-10.9) H 04/06/23 06:07 Hgb 9.6 g/dL (13.6-17.9) L D 04/06/23 06:07 Hct 30.7 % (39.6-49.0) L 04/06/23 06:07 Plt Count 164 thou/uL (152-406) 04/06/23 06:07 PT 17.6 SECONDS (9.5-12.5) H 04/02/23 13:56 INR 1.60 04/02/23 13:56 APTT 36.9 SECONDS (24.3-36.9) 04/02/23 13:56 Sodium 138 mEq/L (136-145) 04/06/23 08:30 Potassium 4.3 mEq/L (3.5-5.1) 04/06/23 08:30 BUN 60 mg/dL (7-18) H 04/06/23 08:30 Creatinine 1.26 mg/dL (0.70-1.30) 04/06/23 08:30 Glucose 198 mg/dL (74-106) H 04/06/23 08:30 Phosphorus 2.3 mg/dL (2.5-4.9) L 04/02/23 13:44 Magnesium 2.0 mg/dL (1.6-2.4) 04/02/23 13:44 Total Bilirubin 2.0 mg/dL (0.2-1.0) H 04/02/23 13:44 AST 19 U/L (15-37) 04/02/23 13:44 ALT 27 U/L (16-61) 04/02/23 13:44 Alkaline Phosphatase 200 U/L (45-117) H 04/02/23 13:44 Home Medications: Albuterol Sulfate [Proair Hfa] 2 puff IH PRN PRN 08/25/22 Allopurinol 300 mg PO DAILY 08/25/22 Apixaban [Eliquis] 5 mg PO BID 08/25/22 Atorvastatin Calcium [Lipitor] 40 mg PO BEDTIME 08/25/22 Cholecalciferol (Vitamin D3) [Vitamin D3] 1,000 unit PO DAILY 08/25/22 Cinnamon Bark [Cinnamon] 500 mg PO PRN PRN 08/25/22 Dapagliflozin Propanediol [Farxiga] 5 mg PO DAILY 08/25/22 L.acidoph,Paracasei, B.lactis [Probiotic] 1 each PO BIDP PRN 08/25/22 Metoprolol Tartrate [Lopressor*] 25 mg PO BID 08/25/22 Multivitamin 1 each PO BID 08/25/22 Sacubitril/Valsartan [Entresto 49 mg-51 mg Tablet] 1 each PO BID 08/25/22 Followup: Vladislav Aguilar MD [ACTIVE - CAN ADMIT] - 2-3 Days (Please call to schedule an appointment this week. )
[2023-04-06 22:35] LABS: Vitamin D 1,25-Dihydroxy Total <8 pg/mL (18-72); Vitamin D,1,25-OH2, D2 <8 pg/mL
== END 2023-04-06 11:14 | disposition home health service (06) | DRG 300 ==
LOC: 4TH 11:41 → UNDOADMOB 11:41 → 4TH 11:48 → OBSVTOIN 04-04 15:12
PROVIDERS: ADMIT Internal Medicine; ATTEND Emergency Medicine
DX: E11.52 Type 2 diabetes mellitus with diabetic peripheral angiopathy with gangrene (principal); I42.0 Dilated cardiomyopathy; I50.22 Chronic systolic (congestive) heart failure; R64 Cachexia; L97.829 Non-pressure chronic ulcer of other part of left lower leg with unspecified severity; L97.819 Non-pressure chronic ulcer of other part of right lower leg with unspecified severity; E11.628 Type 2 diabetes mellitus with other skin complications; K76.1 Chronic passive congestion of liver; M10.9 Gout, unspecified; I08.1 Rheumatic disorders of both mitral and tricuspid valves; M54.12 Radiculopathy, cervical region; I25.10 Atherosclerotic heart disease of native coronary artery without angina pectoris; L08.89 Other specified local infections of the skin and subcutaneous tissue; Z88.0 Allergy status to penicillin; Z79.84 Long term (current) use of oral hypoglycemic drugs; Z68.23 Body mass index [BMI] 23.0-23.9, adult; Z86.73 Personal history of transient ischemic attack (TIA), and cerebral infarction without residual deficits; Z79.01 Long term (current) use of anticoagulants; Z86.711 Personal history of pulmonary embolism; Z79.899 Other long term (current) drug therapy; Z95.810 Presence of automatic (implantable) cardiac defibrillator; Z91.048 Other nonmedicinal substance allergy status
CPT/HCPCS: 36415; 71046; 73700; 76377; 80048; 80076; 81001; 82043; 82570; 82607; 82652; 82947; 83036; 83735; 84100; 84443; 85025; 85610; 85730; 87040; 87086; 87088; 93925; G0378; G0379; J1815; J2185

== ENCOUNTER 2023-04-12 03:44 | Inpatient (IN) | payer OTHER ==
--- OUTSIDE RECORDS SUMMARY | 2023-04-12 03:48 | XMS REPORT | Continuity of Care Document ---
:1955 Author Organization [facility] t Address [address] [facility] [address] [place] [address] Care Team Providers Name Role Phone VLADISLAV AGUILAR Primary Care Physician Unavailable Vladislav Aguilar Attending Clinician Unavailable Dereck Carrillo MD Attending Clinician Dusty Flaherty MD Attending Clinician Negra Shirley CRNA Attending Clinician Only, Ang Db Test Attending Clinician Unavailable Samuel Segura MD Attending Clinician SAMUEL SEGURA Attending Clinician Unavailable Nazia Tenorio RN Attending Clinician Unavailable Gwendolyn Ramirez Attending Clinician GWENDOLYN HAYNES Attending Clinician Unavailable Kanchan Baires Attending Clinician Doctor Unassigned, [place] Attending Clinician Unavailable RODRICK MURRELL Attending Clinician [...] rs active active ity of problems problems [facility] Allergies, Adverse Reactions, Alerts Allergy Allergy Status [...] Start Date Stop Date Source Natural father [facility] Natural mother [facility] Social History Social Habit Start Date Stop Date Quantity Comments Source Gender identity [facility] Sexual orientation [facility] Alcohol intake 2023-01-05 2023-01-05 Ex-drinker [facility] 00:00:00 00:00:00 (finding) Hospital History of Social 2023-01-05 2023-01-[address] function 00:00:00 00:00:00 Hospital Tobacco use and 2022-12-31 2022-12-31 Smokeless [facility] exposure 00:00:00 00:00:00 tobacco non-user Hospital Exposure to 2022-10-24 2022-11-03 Yes University of SARS-CoV-2 (event) 00:00:00 19:47:00 [facility] Sex Assigned At [birth year] [facility] 00:00:00 00:00:00 Hospital Smoking Status Start Date Stop Date Source Tobacco smoking consumption [facility] unknown Branch Never smoked tobacco [facility] Medications Ordered Filled Start Stop [...] 2023-0 Yes 5mg QD Take 1 Meth rasahun in 3-02 tablet (5 st (FARXIGA) 5 17:08: mg total) H ospita mg tablet 02 by mouth l daily. metOLazone 3-0 Yes 5mg QD Take 1 Metho di (ZAROXOLYN) 3-02 tablet (5 st 5 MG tablet 17:08: mg total) H ospita 02 by mouth l daily. allopurinoL 2022-0 Yes 300mg QD Take 1 Met hodi (ZYLOPRIM) 3-[address] 300 MG 17:08: (300 mg Hospita tablet 02 total) by l mouth daily. midodrine 2022-0 Yes 5mg Q.5D Take 1 Method i (PROAMATINE 3-02 tablet (5 st ) 5 MG 17:08: mg total) Hospit a tablet 02 by mouth 2 l (two) times a day. metoprolol 2022-0 Yes 25mg QD Take 1 Metho di tartrate 3-02 tablet (25 st (LOPRESSOR) 17:08: mg total) H ospita 25 mg 02 by mouth l tablet daily. albuterol 0 Yes 2{puff} Q4H Inhale 2 M ethodi (PROAIR 3-[address] HFA) 90 17:08: every 4 Hospita mcg/actuati 02 (four) l on inhaler hours as needed for wheezing. albuterol 0 Yes 2{puff} Q.25D Inhale 2 Method[facility] (PROAIR 3-[address] HFA) 90 17:08: (four) Hospita mcg/actuati 02 times a l on inhaler day. azithromyci Yes [id number] 250mg Take 1 Univers n 250 mg 7-03 tablet by ity of tablet 00:00: mouth [place] 00 daily. Medical Branch azithromyci 0 Yes [id number] 250mg Take 1 Univers n 250 mg 7-03 tablet by ity of tablet 00:00: mouth [place] 00 daily. Medical Branch azithromyci 2021-0 Yes [id number] 250mg Take 1 Univers n 250 mg 7-03 tablet by ity of tablet 00:00: mouth [place] 00 daily. Medical Branch azithromyci 0 Yes [id number] 250mg Take 1 Univers n 250 mg 7-03 tablet by ity of tablet 00:00: mouth [place] 00 daily. Medical Branch codeine-gua 0 2021- No [id number] 5mL Take 5 mL Univers ifenesin 05-04 by mouth ity of 10-100 mg/5 00:00: 04:59 every 6 [place] mL oral 00 :00 (six) Medical solution hours as Branch needed for Cough for up to 7 days. Indication s: acute pain codeine-gua No 4647 5mL Take 5 mL Univers ifenesin 05-04 by mouth ity of 10-100 mg/5 00:00: 04:59 every 6 [place] mL oral 00 :00 (six) Medical solution hours as Branch needed for Cough for up to 7 days. Indication s: acute pain codeine-gua No 4647 5mL Take 5 mL Univers ifenesin 05-04 by mouth ity of 10-100 mg/5 00:00: 04:59 every 6 [place] mL oral 00 :00 (six) Medical solution hours as Branch needed for Cough for up to 7 days. Indication s: acute pain Immunizations Ordered Filled Immunization Date Status Comments [facility] Immunization Name Name SARS-COV-2 COVID-19 2022-04-07 Completed Unive rsity of MODERNA 0.25ML 00:00:00 [place] [facility] BOOSTER VACCINE Branch SARS-COV-2 COVID-19 2022-04-07 Completed Unive rsity of MODERNA 0.25ML 00:00:00 [place] [facility] BOOSTER VACCINE Branch SARS-COV-2 COVID-19 2022-04-07 Completed Unive rsity of MODERNA 0.25ML 00:00:00 [place] [facility]is BOOSTER VACCINE Branch SARS-COV-2 COVID-19 2022-04-07 Completed Unive rsity of MODERNA 0.25ML 00:00:00 [place] [facility] BOOSTER VACCINE Branch Vital Signs Vital Name Observation Time Observation Value Comments Source Heart rate 2022-05-04 23:40:00 108 /min [facility] Body temperature 2022-05-04 23:40:00 37.83 Anjali [facility] rate 2022-05-04 23:40:00 25 /min [facility] Body height 2022-05-04 23:40:00 180.3 cm [facility] Body weight 2022-05-04 23:40:00 90.583 kg [facility] BMI 2022-05-04 23:40:00 27.85 kg/m2 [facility] Oxygen saturation in 2022-05-04 23:40:00 98 /min University Arterial blood by [facility] [place] Pulse oximetry Branch Systolic blood 2022-05-04 23:40:00 119 mm[Hg] Univer sity of pressure [facility] Diastolic blood 2022-05-04 23:40:00 71 mm[Hg] Unive rsity of pressure [facility] Systolic blood 2022-12-31 22:00:00 131 mm[Hg] [facility] pressure Diastolic blood 2022-12-31 22:00:00 80 mm[Hg] [facility] pressure Heart rate 2022-12-31 22:00:00 87 /min [facility] Respiratory rate 2022-12-31 22:00:00 17 /min [facility] Oxygen saturation in 2022-12-31 22:00:00 100 /min [facility] Arterial blood by Pulse oximetry Body temperature 2022-12-31 17:30:00 36.44 Anjali [facility] Body height 2022-12-31 12:01:00 180.3 cm [facility] Body weight 2022-12-31 12:01:00 89.721 kg [facility] BMI 2022-12-31 12:01:00 27.59 kg/m2 [facility] Procedures Procedure Date / Time Performing Clinician Source Performed POC GLUCOSE 2022-12-31 21:01:00 Dereck Carrillo spital ECG PRE/POST OP 2022-12-31 18:26:43 Dereck Carrillo spital POC GLUCOSE 2022-12-31 18:22:00 Dereck Carrillo spital XR CHEST 1 VW PORTABLE 2022-12-31 18:05:00 Gerardo [facility] EP CARDIAC MODULATOR 2022-12-31 17:05:26 Gerardo [facility]REPLACE TYPE AND SCREEN 2022-12-31 12:18:00 Dereck Carrillo spital POC GLUCOSE 2022-12-31 12:10:00 Dereck Carrillo spital ECG 12-LEAD 2022-12-31 11:53:04 Gerardo, Nad [facility] COVID-19 QUALITATIVE 2022-12-29 18:52:00 [facility]ardo, [facility] COMPREHENSIVE METABOLIC 2022-12-29 18:52:00 [facility] WITH PLATELET AND 2022-12-29 18:52:00 Gerardo, Nad [facility] DIFFERENTIAL MAGNESIUM LEVEL 2022-12-29 18:52:00 Gerardo, Nadim [facility] PROTHROMBIN TIME WITH 2022-12-29 18:52:00 Gerardo, [facility] Hospital INR ESTIMATED GFR 2022-12-29 18:52:00 GerardoDandy [facility] XR CHEST 2 VW 2022-05-05 00:04:00 [place] [facility] Plan of Care Planned Activity Planned Date Details Comments Source Future Scheduled 2023-04-09 [facility] Test 00:42:25 malignant neoplasm of colon (procedure) [code = 621892276] Future Scheduled 2023-04-09 [facility] Test 00:42:25 malignant neoplasm of colon (procedure) [code = 357326906] Future Scheduled 2023-04-09 Hepatitis C screening [facility] Test 00:42:25 (procedure) [code = 683656162] Future Scheduled 2023-04-09 SHINGLES VACCINES ([facility] Test 00:42:25 of 2) [code = SHINGLES VACCINES (1 of 2)] Future Scheduled 2023-04-09 [facility] for [facility] Test 00:42:25 malignant neoplasm of colon (procedure) [code = 531365139] Future Scheduled 2023-04-09 COVID-19 VACCINE (6 - [facility] Test 00:42:25 Moderna series) [code = COVID-19 VACCINE (6 - Moderna series)] Future Scheduled 2023-04-09 INFLUENZA VACCINE [facility] Test 00:42:25 [code = INFLUENZA VACCINE] Future Scheduled 2023-04-09 [facility] Test 00:42:25 malignant neoplasm of colon (procedure) [code = 235266557] Future Scheduled 2023-04-09 [facility] for [facility] Test 00:42:25 malignant neoplasm of colon (procedure) [code = 257235915] Future Scheduled 2023-02-18 [facility]atitis C [facility] Test 10:26:44 (procedure) [code = 267164677] Future Scheduled 2023-02-18 COLONOSCOPY SCREENING [facility] Test 10:26:44 [code = COLONOSCOPY SCREENING] Future Scheduled 2023-02-18 SHINGLES VACCINES (1 Met [facility] Hospital Test 10:26:44 of 2) [code = SHINGLES VACCINES (1 of 2)] Future Scheduled 2023-02-18 INFLUENZA VACCINE [facility] Test 10:26:44 [code = INFLUENZA VACCINE] Future Scheduled 2023-02-18 Hepatitis C screening [facility] Test 10:26:44 (procedure) [code = 150346743] Future Scheduled 2023-02-18 [facility] Test 10:26:44 malignant neoplasm of colon (procedure) [code = 497926099] Future Scheduled 2023-02-18 SHINGLES VACCINES (1 [facility] Hospital Test 10:26:44 of 2) [code = SHINGLES VACCINES (1 of 2)] Future Scheduled 2023-02-18 INFLUENZA VACCINE [facility] Test 10:26:44 [code = INFLUENZA VACCINE] Future Scheduled 2023-02-18 Hepatitis C screening [facility] Test 10:26:44 (procedure) [code = 080190311] Future Scheduled 2023-02-18 COLONOSCOPY SCREENING [facility] Test 10:26:44 [code = COLONOSCOPY SCREENING] Future Scheduled 2023-02-18 SHINGLES VACCINES (1 [facility] Hospital Test 10:26:44 of 2) [code = SHINGLES VACCINES (1 of 2)] Future Scheduled 2023-02-18 INFLUENZA VACCINE [facility] Test 10:26:44 [code = INFLUENZA VACCINE] Encounters Start End Encounter Admission Attending Care Care Encounter Source Date/Time Date/Time Type Type Clinicians Facility Department ID 2022-06-18 Outpatient Lauren [facility] [id number] Common 09:10:17 Vladislav [facility] 2022-05-14 Outpatient Lauren [facility] [id number] Common 09:11:03 Vladislav [facility] 2022-12-31 2022-12-31 Hospital Gerardo, 1.2.840.1 [id number] Methodi 05:43:00 17:08:00 Encounter Nadim 11610.1.[address] 3.430.2.7 Hospit a .3.309926 l .8 2022-12-31 2022-12-31 Hospital Gerardo, 1.2.840.1 [id number] Methodi 05:43:00 17:08:00 Encounter Nadim 30373.1.[address] 3.430.2.7 Hospit a .3.521692 l .8 2022-12-31 2022-12-31 Anesthesia Dusty Flaherty 1.2.840.1 [id number] Methodi 08:15:00 11:36:00 Event Negra Shirley 97280.1.[address] 3.430.2.7 Hospit a .3.277268 l .8 2022-12-31 2022-12-31 Anesthesia Dusty Flaherty 1.2.840.1 [id number] Methodi 08:15:00 11:36:00 Event Negra Shirley 55735.1.[address] 3.430.2.7 Hospit a .3.643445 l .8 2022-12-31 2022-12-31 Surgery Gerardo, 1.2.840.1 [id number] Methodi 08:15:00 11:20:[address] 3.430.2.7 Hospit a .3.421572 l .8 2022-12-31 2022-12-31 Surgery Gerardo, 1.2.840.1 [id number] 2361 Methodi 08:15:00 11:20:[address] 3.430.2.7 Hospit a .3.992462 l .8 2022-12-31 2022-12-31 Travel 1.2.840.1 1.2.196.829 [id number] [facility] 00:00:00 00:00:[address] 3.430.2.7 0.2.7.3.698 Ho spita .3.152493 084.8 l .8 2022-12-31 2022-12-31 Travel 1.2.840.1 1.2.618.517 7551 [id number] Methodi 00:00:00 00:00:[address] 3.430.2.7 0.2.7.3.698 Ho spita .3.814228 084.8 l .8 2022-12-29 2022-12-29 Lab Gerardo, 1.2.840.1 [id number] 7110 Methodi 12:25:00 12:30:[address] 3.430.2.7 Hospit a .3.021012 l .8 2022-12-29 2022-12-29 Lab Gerardo, 1.2.840.1 [id number] Methodi 12:25:00 12:30:[address] 3.430.2.7 Hospit a .3.450862 l .8 2022-12-29 2022-12-29 Travel 1.2.840.1 1.2.564.896 8702 [id number] Methodi 00:00:00 00:00:[address] 3.430.2.7 0.2.7.3.698 Ho spita .3.793920 084.8 l .8 2022-12-29 2022-12-29 Travel 1.2.840.1 1.2.696.088 7284 [id number] Methodi 00:00:00 00:00:[address] 3.430.2.7 0.2.7.3.698 Ho spita .3.735707 084.8 l .8 2022-12-15 2022-12-15 Community Gerardo, 1.2.840.1 [id number] [id number] Methodi 00:00:00 00:00:00 Orders Nadim 71444.1.[address] 3.430.2.7 Hospit a .3.117277 l .8 2022-12-15 2022-12-15 Community Gerardo, 1.2.840.1 [id number] [id number] Methodi 00:00:00 00:00:00 Orders Nadim 85928.1.[address] 3.430.2.7 Hospit a .3.605847 l .8 2022-11-03 2022-11-03 Laboratory Only, Ang Db Test [facility] 1.2.8 40.114 [id number] Univers 19:45:00 20:00:00 Only Colton [facility] 350.1.13.[address] [facility] 4.2.7.2.686 Isidro as SAE?BLEA [id number] [address] MEDICAL OFFICE BUILDING 2022-11-03 2022-11-[address] [facility] [id number] [facility] 19:45:00 19:45:00 [facility] 2022-08-13 2022-08-13 Travel 1.2.840.1 1.2.973.821 6260 [id number] Methodi 00:00:00 00:00:[address] 3.430.2.7 0.2.7.3.698 Ho spita .3.905008 084.8 l .8 2022-08-13 2022-08-13 Travel 1.2.840.1 1.2.393.205 4230 [id number] Methodi 00:00:00 00:00:[address] 3.430.2.7 0.2.7.3.698 Ho spita .3.969702 084.8 l .8 2022-05-05 2022-05-05 Telephone Nazia Tenorio 1.2.840.114 [id number] [facility] 00:00:00 00:00:00 RHONDA 350.1.13.10 it y of [facility] 4.2.7.2.686 Isidro as [id number] [facility] [address] [place] 2022-05-04 2022-05-04 [facility] 1.2.840.114 [id number] Univers 18:54:07 23:59:00 Encounter [facility] 350.1.13.10 ity of [place] 4.2.7.2.686 Isidro as SAE?BLEA [id number] [place] vandana PADRON [address] MEDICAL OFFICE [facility] 2022-05-04 2022-05-04 [facility] [id number] Univers 18:40:00 19:04:20 [facility] 2022-05-04 2022-05-04 [facility] [place] [facility] 1..840.114 9 [id number] Univers 18:40:00 19:04:20 [facility] 350.1.13.10 ity of [place] 4.2.7.2.686 Isidro as SAE?BLEA [id number] [facility] [facility] [address] [facility] OFFICE [facility] 2022-05-04 2022-05-[address] [facility] [id number] Univers 18:54:07 18:54:07 [facility] 2022-05-04 2022-05-04 Orders Doctor OREILLY 1.2.840.114 [id number] Univers 00:00:00 00:00:00 Only Unassigned, RHONDA 350.1.13.10 ity of [place] [facility] 4.2.7.2.686 Isidro as [id number] [facility] [address] 2022-04-08 2022-04-[address] [facility] [id number] Univers 08:30:00 08:30:[address] [facility] 2022-04-07 2022-04-[address] [facility] [id number] Univers 15:30:00 16:06:[address] [facility] 2022-04-07 2022-04-07 Imm/Inj Vaccine, [facility] 1.2.840.114 [id number] Univers 15:30:00 15:40:00 Visit HandyRodrick 350.1.13 .10 ity [facility] 4.2.7.2.686 [place] [id number] [place] diclara ETIENNE [address] BUILDING 2021-09-09 2021-09-[address] [facility] [id number] Univers 08:50:00 08:50:00 RODRICK [facility] 2021-07-15 2021-07-15 Letter AFIA Drake 1.2.840.114 [id number] Univers 00:00:00 00:00:00 (Out) Shannon ELLIS 350.1.13.10 it [facility] 4.2.7.2.686 Isidro as [id number] [address] 2021-07-13 2021-07-13 Laboratory Only, Ang Db Test [facility] 1.2.8 40.114 [id number] Univers 19:34:50 19:49:50 [facility] 350.1.13.10 [facility] 4.2.7.2.686 Isidro as Sae?Blea [id number] [place] diclara kney [address] [place] Medical Office [facility] 2021-07-13 2021-07-[address] [facility] [id number] Univers 19:30:00 19:30:00 [facility] Results Test Description Test Time Test Comments Results Result Comments Source ECG Pre/Post Op-Tomorrow 2022-12-31 22:33:35 Test Item Value Reference Range Interpretation Comme nts Ventricular rate (test code = 253) 81 Atrial rate (test code = 255) 81 ND interval (test code = 266) 124 QRSD [...] data quality, interpretat ion may be adversely cbieedug-Cviosg-mxbafd ventricular-paced rhythm-Biventricular pacemaker detected-Abnormal ECG-In automated comparison with ECG of 31-DEC-2022 05:53,-Vent. rate has decreased BY 5 BPM- [facility] Pre/Post [id number] 22:33:35 Test Item Value Reference Range Interpretation Comments Ventricular rate 81 (test code = 253) Atrial rate (test 81 code = 255) ND interval (test 124 code = 266) QRSD [...] code = 273) interpretation may be adversely yurfzkhw-Awacje-xnqzji ventricular-paced rhythm-Biventricular pacemaker detected-Abnormal ECG-In automated comparison with ECG of 31-DEC-2022 05:53,-Vent. rate has decreased BY 5 BPM- [facility] Pre/Post Bn-Kjqobyij2825-07-01 22:33:35 Test Item Value Reference Range Interpretation Comments Ventricular rate 81 (test code = 253) Atrial rate (test 81 code = 255) ND interval (test 124 code = 266) QRSD [...] code = 273) interpretation may be adversely rgzluuet-Tmuqqh-bgtofd ventricular-paced rhythm-Biventricular pacemaker detected-Abnormal ECG-In automated comparison with ECG of 31-DEC-2022 05:53,-Vent. rate has decreased BY 5 BPM- [facility] Pre/Post Wa-Kwodqias3119-07-01 22:33:35 Test Item Value Reference Range Interpretation Comments Ventricular rate 81 (test code = 253) Atrial rate (test 81 code = 255) ND interval (test 124 code = 266) QRSD [...] code = 273) interpretation may be adversely phzpwbwl-Xoddal-lactda ventricular-paced rhythm-Biventricular pacemaker detected-Abnormal ECG-In automated comparison with ECG of 31-DEC-2022 05:53,-Vent. rate has decreased BY 5 BPM- [facility]2023-03-01 21:02:00 Test Item Value Reference Range Interpretation Comments POC glucose (test code 300 mg/dL 65-99 H Opera tor Name: = 47403-3) Alvarez [place] ID : [id number] able: No Action Neede d Lab Interpretation Abnormal (test code = 79585-4) [facility]2023-03-01 21:02:00 Test Item Value Reference Range Interpretation Comments POC glucose (test code 300 mg/dL 65-99 H Opera tor Name: = 08535-4) Alvarez PaulineDevice ID : [id number] able: No Action Neede d Lab Interpretation Abnormal (test code = 27412-5) [facility]2023-03-01 21:02:00 Test Item Value Reference Range Interpretation Comments POC glucose (test code 300 mg/dL 65-99 H Opera tor Name: = 44653-5) Alvarez BraydenleyDevice ID : [id number] able: No Action Neede d Lab Interpretation Abnormal (test code = 04668-8) [facility]2023-03-01 21:02:00 Test Item Value Reference Range Interpretation Comments POC glucose (test code 300 mg/dL 65-99 H Opera tor Name: = 45995-1) Alvarez PaulineDevice ID : [id number] able: No Action Neede d Lab Interpretation Abnormal (test code = 74870-3) [address]2023-03-01 12:54:20 Test Item Value Reference Range Interpretation Comments Ventricular rate (test 86 code = 253) Atrial rate (test code 86 = 255) ND interval (test code 150 = 266) QRSD [...] 08:17,-Electronic ventricular pacemaker has replaced Sinus rhythm- [address]2023-03-01 12:54:20 Test Item Value Reference Range Interpretation Comments Ventricular rate (test 86 code = 253) Atrial rate (test code 86 = 255) ND interval (test code 150 = 266) QRSD [...] 08:17,-Electronic ventricular pacemaker has replaced Sinus rhythm- [address]2023-03-01 12:54:20 Test Item Value Reference Range Interpretation Comments Ventricular rate (test 86 code = 253) Atrial rate (test code 86 = 255) ND interval (test code 150 = 266) QRSD [...] 08:17,-Electronic ventricular pacemaker has replaced Sinus rhythm- [facility] [id number] 12:54:20 Test Item Value Reference Range Interpretation Comments Ventricular rate (test 86 code = 253) Atrial rate (test code 86 = 255) ND interval (test code 150 = 266) QRSD [...] 08:17,-Electronic ventricular pacemaker has replaced Sinus rhythm- [facility] qualitative [id number] 23:04:43 Test Item Value Reference Interpretation Comments Range Interpretation Negative results do (test code = not preclude COVID-19 4357619) infection and should not be used asthe sole basis for treatment or other patient management decisions. Negativeresults must be combined with clinical observations, patient history, andepidemiological information. COVID-19 Not-Detected Not-Detected DISCLAIMER:This qualitative RT-PCR test was result (test code performed using = 91936-1) the Luk[employer] SARS-CoV-2 Assa y ([employer] (III) Development & Management). This assay is available for i n vitro diagnosti c use under Food and Drug Administration (FDA) Emergency Use Authorizati on (EUA) and has been verified f or clinical use by the [facility]. Information on the FDA policy for diagnostic tests for coronavirus disease- 2019 i s available at:https://www. fd a.gov/medical-d ev ices/emergency- si tuations-medica l- devices/faqs-di ag nostic-testing- sa rs-cov-2It is critical that health care providers and patients review the applicable fact sheet(s) i n interpreting or understanding t he test results th at are available upon request.METHODO YOANNA GY:This assay utilizes reagen ts for nucleic aci d extraction, amplification, and real-time reverse supervisor of guidance and testing polymerase augusta n reaction. COVID-19 See link below for PDF Case Number: qualitative RT-PCR Lab Report [id number] PDF (test code = 7070) [facility] qualitative [id number] 23:04:43 Test Item Value Reference Interpretation Comments Range Interpretation Negative results do (test code = not preclude COVID-19 4909556) infection and should not be used asthe sole basis for treatment or other patient management decisions. Negativeresults must be combined with clinical observations, patient history, andepidemiological information. COVID-19 Not-Detected Not-Detected DISCLAIMER:This qualitative RT-PCR test was result (test code performed using = 54521-3) the Al[employer] m SARS-CoV-2 Assa y ([employer] (III[employer] Development [employer] Management). This assay is available for i n vitro diagnosti c use under Food and Drug Administration (FDA) Emergency Use Authorizati on (EUA) and has been verified f or clinical use by the [facility]. Information on the FDA policy for diagnostic tests for coronavirus disease- 2019 i s available at:https://www. fd a.gov/medical-d ev ices/emergency- si tuations-medica l- devices/faqs-di ag nostic-testing- sa rs-cov-2It is critical that health care providers and patients review the applicable fact sheet(s) i n interpreting or understanding t he test results th at are available upon request.METHODO YOANNA GY:This assay utilizes reagen ts for nucleic aci d extraction, amplification, and real-time reverse supervisor of guidance and testing polymerase augusta n reaction. COVID-19 See link below for PDF Case Number: qualitative RT-PCR Lab Report [id number] PDF (test code = 7070) [facility]- qualitative [id number] 23:04:43 Test Item Value Reference Interpretation Comments Range Interpretation Negative results do (test code = not preclude COVID-19 2096206) infection and should not be used asthe sole basis for treatment or other patient management decisions. Negativeresults must be combined with clinical observations, patient history, andepidemiological information. COVID-19 Not-Detected Not-Detected DISCLAIMER:This qualitative RT-PCR test was result (test code performed using = 22927-7) the [employer] m SARS-CoV-2 Assa y ([employer]). This assay is available for i n vitro diagnosti c use under Food and Drug Administration (FDA) Emergency Use Authorizati on (EUA) and has been verified f or clinical use by the [facility]. Information on the FDA policy for diagnostic tests for coronavirus disease- 2019 i s available at:https://www. fd a.gov/medical-d ev ices/emergency- si tuations-medica l- devices/faqs-di ag nostic-testing- sa rs-cov-2It is critical that health care providers and patients review the applicable fact sheet(s) i n interpreting or understanding t he test results th at are available upon request.METHODO LO GY:This assay utilizes [employer] ts for nucleic aci d extraction, amplification, and real-time reverse supervisor of guidance and testing polymerase augusta n reaction. COVID-19 See link below for PDF Case Number: qualitative RT-PCR Lab Report [id number] PDF (test code = 7070) [facility] [id number] 23:04:43 Test Item Value Reference Interpretation Comments Range Interpretation Negative results do (test code = not preclude COVID-19 3000771) infection and should not be used asthe sole basis for treatment or other patient management decisions. Negativeresults must be combined with clinical observations, patient history, andepidemiological information. COVID-19 Not-Detected Not-Detected DISCLAIMER:This qualitative RT-PCR test was result (test code performed using = 61736-3) the [employer] m SARS-CoV-2 Assa y ([employer]). This assay is available for i n vitro diagnosti c use under Food and Drug Administration (FDA) Emergency Use Authorizati on (EUA) and has been verified f or clinical use by the [facility]. Information on the FDA [...] aci d extraction, amplification, and real-time reverse supervisor of guidance and testing polymerase augusta n reaction. COVID-19 See link below for PDF Case Number: qualitative RT-PCR Lab Report [id number] PDF (test code = 7070) Eva JulioARS-CoV-2 (COVID-19) RNA [Presence] in Respiratory specimen by LORETO with probe [id number] 17:04:43 Test Item Value Reference Range Interpretation Comments SARS-CoV-2 (COVID-19) RNA Not detected [Presence] in Respiratory specimen by LORETO with probe detection (test code = 41998-2) Whether patient is employed in a Unknown healthcare setting (test code = 85398-2) Whether the patient has symptoms Unknown related to condition of interest (test code = 94958-2) Whether the patient was Unknown hospitalized for condition of interest (test code = 89401-9) Whether the patient was admitted Unknown to intensive care unit (ICU) for condition of interest (test code = 13212-9) Whether patient resides in a Unknown congregate care setting (test code = 58246-0) status (test code = Unknown 09608-6) Date and time of symptom onset Unknown (test code = 84800-0) MARY GAMEZ
[2023-04-12 04:18] LABS: Absolute Lymphocytes (CBC) 0.4 K/uL (0.7-4.9); Hematocrit 28.5 % (39.6-49.0); Lymphocytes % 6.5 % (15.3-44.8); MCV 96.2 fL (80-100); MPV 7.2 fL (7.6-11.3); RBC Red Blood Cell Count 2.97 M/uL (4.33-5.43)
[2023-04-12] MEDS ORDERED: NA CHLORIDE 0.9% 250 ML ONE (04:25)
[2023-04-12 04:38] LABS: Protime INR 1.61
[2023-04-12 04:44] LABS: Albumin 2.8 g/dL (3.4-5.0); Bilirubin Total 2.1 mg/dL (0.2-1.0); Potassium 4.5 mEq/L (3.5-5.1); Protein, Total 7.2 g/dL (6.4-8.2)
[2023-04-12 04:56] LABS: Troponin High Sensitivity 60.6 pg/mL (<58.9)
[2023-04-12] MEDS ORDERED: Levofloxacin500mg IV 500 MG/100 ML BAG IV ONE (05:18)
--- NOTE | 2023-04-12 05:33 | ER ---
Nurse's Notes [facility] Name: Jose Guadalupe Moss Age: 67 yrs Sex: Male : 1955 Arrival Date: 04/12/2023 Time: 03:44 Bed 5 Private MD: Diagnosis: Acute kidney failure, unspecified;Dizziness and giddiness Presentation: 04/12 03:53 Chief complaint: Patient states: C/O dizziness,onset 1.5 hours ago with hypotension. pf1 Patient stated has been dealing with low blood pressure for [address] Aguilar has been adjusting his medication. Coronavirus screen: Vaccine status: Patient reports receiving the 2nd dose of the covid vaccine. 3 doses of [employer] Client denies travel out of the [place] in the last 14 days. At this time, the client does not indicate any symptoms associated with coronavirus-19. 03:53 Method Of Arrival: Wheelchair pf1 03:53 Ebola Screen: Patient negative for fever greater than or equal to 101.5 degrees pf1 Fahrenheit, and additional compatible Ebola Virus Disease symptoms. Initial Sepsis Screen: Does the patient meet any 2 criteria? No. Patient's initial sepsis screen is negative. Does the patient have a suspected source of infection? No. Patient's initial sepsis screen is negative. Risk Assessment: Do you want to hurt yourself or someone else? Patient reports no desire to harm self or others. 03:53 Acuity: MATEUS 3 pf1 04:49 Onset of symptoms was April 12, 2023. rv Historical: - Allergies: 04:20 PENICILLINS; pf1 - Home Meds: 04:20 Levofloxacin Oral [Active]; furosemide 40 mg Oral tab 1 tab once daily [Active]; pf1 sertraline 25 mg oral tablet 1 tab daily [Active]; colchicine 0.6 mg Oral capsule 1 cap 2 times per day [Active]; Eliquis 2.5 mg oral tablet 1 tab once [Active]; 04:48 carvedilol 12.5 mg Oral tab 1 tab 2 times per day [Active]; Entresto 49-51 mg Oral tab rv 1 tab 2 times per day [Active]; glimepiride 4 mg Oral tab 1 tab 2x daily [Active]; lovastatin 20 mg Oral tab 1 tab once daily [Active]; Warfarin 7 mg daily Oral [Active]; - PMHx: 04:20 Diabetes - NIDDM; Hypertension; Pacemaker; Gout; Kidney disease; pf1 - Immunization history:: Adult Immunizations up to date, Client reports receiving the 2nd dose of the Covid vaccine, 3 doses of pfizer Last tetanus immunization: < 10 years ago Flu vaccine is up to date. - Social history:: Smoking status: Patient denies any tobacco usage or history of. Patient/guardian denies using alcohol, street drugs. Screenin:15 [facility] ED Fall Risk Assessment (Adult) History of falling in the last 3 months, rv including since admission No falls in past 3 months (0 pts) Confusion or Disorientation No (0 pts) Intoxicated or Sedated No (0 pts) Impaired Gait Yes (1 pt) Mobility Assist Device Used Yes (1 pt) Altered Elimination No (0 pt) Score/Fall Risk Level 3 or more points = High Risk Oriented to surroundings, Maintained a safe environment, Educated pt \T\ family on fall prevention, incl call for assistance when getting out of bed, Assessed \T\ reinforced patient's understanding of fall precautions, Provided non-skid footwear, Hourly rounding (assess needs \T\ fall precautionary measures) done, Used ambulatory aids as needed (educated on \T\ assisted with), Used gait belt as appropriate Implemented a Fall Risk Plan of Care, Apply high fall risk patient identification: yellow non skid footwear/ fall signage, Placed fall mat w/ non beveled edge next to bed, Activated bed/chair alarm, Remained w/in arm's length of patient and in sight while toileting, Offered frequent toileting (1:1 observation), Remained with patient while ambulating, Utilized family, sitter, or virtual fish frog or oyster farmer as indicated. Abuse screen: Denies threats or abuse. Denies injuries from another. Nutritional screening: No deficits noted. Tuberculosis screening: No symptoms or risk factors identified. Assessment: 04:14 General: Appears comfortable, Behavior is agitated. Pain: Denies pain. Neuro: Level of rv Consciousness is awake, alert, obeys commands, Oriented to person, place, time, situation, Reports dizziness. Cardiovascular: Capillary refill < 3 seconds. Respiratory: Airway is patent Respiratory effort is even, unlabored. Musculoskeletal: Swelling present in right leg and left leg. Vital Signs: 03:53 BP 92 / 75; Pulse 87; Resp 20; Temp 98(O); Pulse Ox 100% on R/A; Weight 83.5 kg; Height pf1 5 ft. 11 in. ; Pain 0/10; 05:02 BP 90 / 74; Pulse 87; Resp 18; Pulse Ox 100% on R/A; rv 05:41 BP 98 / 69; Pulse 92; Resp 14; Temp 97.9; Pulse Ox 100% on R/A; rv 03:53 Body Mass Index 25.67 (83.50 kg, 180.34 cm) pf1 03:53 Pain Scale: Adult pf1 ED Course: 03:49 Patient arrived in ED. bp1 03:54 Diego Pham MD is Attending Physician. bs3 04:09 Jalen Burns, LISSA is Primary Nurse. rv 04:13 BNP Sent. rv 04:13 Comprehensive Metabolic Panel Sent. rv 04:14 CBC with Diff Sent. rv 04:14 Troponin High Sensitivity Sent. rv 04:14 Inserted saline lock: 20 gauge in right antecubital area, using aseptic technique. rv Blood collected. 04:16 No provider procedures requiring assistance completed. rv 04:16 Patient has correct armband on for positive identification. Placed in gown. Bed in low rv position. Call light in reach. Side rails up X 1. Adult w/ patient. Client placed on continuous cardiac and pulse oximetry monitoring. NIBP monitoring applied. laboratory monitor on. 04:20 Triage completed. pf1 04:30 First set of blood cultures drawn by me. rv 04:48 Arm band placed on right wrist. rv 04:50 Second set of blood cultures drawn by me. rv 04:57 CT Head Brain wo Cont In Process Unspecified. EDMS 04:58 XRAY Chest (1 view) In Process Unspecified. EDMS 05:32 Vladislav Aguilar MD is Hospitalizing Provider. bs3 05:41 Patient admitted, IV remains in place. rv Administered Medications: 04:47 Drug: NS 0.9% IV 250 ml Route: IV; Rate: bolus; Site: right forearm; rv 05:19 Drug: levofloxacin IVPB 500 mg Volume: 100 ml; Route: IVPB; Infused Over: 60 mins; rv Site: right forearm; 05:42 Follow up: IV Status: Infusion continued upon admission rv Medication: 04:16 VIS not applicable for this client. rv Outcome: 05:32 Decision to Hospitalize by Provider. bs3 05:40 Admitted to Med/surg accompanied by tech, via stretcher, room 211, with chart, Report rv called to Belinda mccauley 05:40 Condition: stable 05:40 Instructed on the need for admit. 05:45 Patient left the ED. rv Signatures: Dispatcher [employer] EDJalen Miles RN RN rv Swapna Hubbard Brandon, MD MD bs3 Gisela Montez RN RN pf1
--- NOTE | 2023-04-12 05:34 | EDPHYS ---
Physician Documentation [facility] Name: Jose Guadalupe Moss Age: 67 yrs Sex: Male : 1955 Arrival Date: 04/12/2023 Time: 03:44 Bed 5 Private MD: ED Physician Diego Pham HPI: 04/12 04:12 This 67 yrs old Black Male presents to ER via Unassigned with complaints of Dizziness, bs3 Blood Pressure Problem. 04:12 Mr. Moss is a pleasant 67-year-old male who presents with dizziness and low blood bs3 pressure in the setting of advanced heart failure he notes that he feels generally lightheaded he denies any numbness tingling or weakness of his extremities he thinks the dizziness just started recently but he has felt low blood pressure over the last several days. He cannot describe the lightheadedness any further and is refusing to answer questions he states that Dr. Aguilar knows what is going on and requests to speak with him. On chart review patient was recently admitted here for a possible wound infection and he was not able to get a PICC line but of note his blood pressure has been low recently he was advised to go into hospice. Historical: - Allergies: 04:20 PENICILLINS; pf1 - Home Meds: 04:20 Levofloxacin Oral [Active]; furosemide 40 mg Oral tab 1 tab once daily [Active]; pf1 sertraline 25 mg oral tablet 1 tab daily [Active]; colchicine 0.6 mg Oral capsule 1 cap 2 times per day [Active]; Eliquis 2.5 mg oral tablet 1 tab once [Active]; 04:48 carvedilol 12.5 mg Oral tab 1 tab 2 times per day [Active]; Entresto 49-51 mg Oral tab rv 1 tab 2 times per day [Active]; glimepiride 4 mg Oral tab 1 tab 2x daily [Active]; lovastatin 20 mg Oral tab 1 tab once daily [Active]; Warfarin 7 mg daily Oral [Active]; - PMHx: 04:20 Diabetes - NIDDM; Hypertension; Pacemaker; Gout; Kidney disease; pf1 - Immunization history:: Adult Immunizations up to date, Client reports receiving the 2nd dose of the Covid vaccine, 3 doses of pfizer Last tetanus immunization: < 10 years ago Flu vaccine is up to date. - Social history:: Smoking status: Patient denies any tobacco usage or history of. Patient/guardian denies using alcohol, street drugs. ROS: 04:15 Constitutional: Negative for fever, chills bs3 04:15 All other systems are negative. Exam: 04:15 Constitutional: Patient appears frail but is awake and alert and in no acute distress bs3 Head/Face: Normocephalic, atraumatic. Eyes: Pupils equal round and reactive to light, extra-ocular motions intact. Lids and lashes normal. ENT: mmm, no posterior phyarngeal erythema Neck: Trachea midline, no thyromegaly, no neck stiffness Chest/axilla: Normal chest wall appearance and motion. Nontender with no deformity. No lesions are appreciated. Cardiovascular: Regular rate and rhythm with a normal S1 and S2. symmetric pulses in upper extremities Respiratory: Lungs have equal breath sounds bilaterally, clear to auscultation, no respiratory distress Abdomen/GI: Soft, non-tender, no rebound or guarding Skin: Warm, dry with normal turgor. Normal color with no rashes, no lesions, and no evidence of cellulitis. MS/ Extremity: 2+ pitting edema in his bilateral lower extremities Neuro: Awake and alert, GCS 15, oriented to person, place, time, and situation. Cranial nerves II-XII grossly intact. Motor strength 5 out of 5 in his upper extremities his sensation is grossly intact Psych: Awake, alert, with orientation to person, place and time. Behavior, mood, and affect are within normal limits. 04:15 Ventricularly paced at 83 Vital Signs: 03:53 BP 92 / 75; Pulse 87; Resp 20; Temp 98(O); Pulse Ox 100% on R/A; Weight 83.5 kg; Height pf1 5 ft. 11 in. ; Pain 0/10; 05:02 BP 90 / 74; Pulse 87; Resp 18; Pulse Ox 100% on R/A; rv 05:41 BP 98 / 69; Pulse 92; Resp 14; Temp 97.9; Pulse Ox 100% on R/A; rv 03:53 Body Mass Index 25.67 (83.50 kg, 180.34 cm) pf1 03:53 Pain Scale: Adult pf1 MDM: 03:55 Patient medically screened. bs3 04:15 Data reviewed: vital signs, nurses notes. ED course: 67-year-old with vague description bs3 of lightheadedness in the setting of chronic hypotension and advanced heart failure he is not a transplant candidate he has no posterior circulation stroke symptoms this may be an electrolyte abnormality this may be related to his heart failure its possible that he has a stroke he is likely at high risk given his heart failure he is not a candidate for thrombolytics given the unknown duration of symptoms and he is Van negative. 05:19 ED course: lactic elevated, unclear source, possible from infection vs type 2 in the bs3 setting of advanced hf, will give ivf, antibiotics. . 05:31 ED course: pt found to have drew, will admit to Dr. Aguilar for heart failure sepsis, bs3 acute kidney injury. . 04/12 04:09 Order name: CBC with Diff; Complete Time: 05:08 bs3 04/12 04:09 Order name: Comprehensive Metabolic Panel; Complete Time: 05:08 bs3 04/12 04:09 Order name: BNP; Complete Time: 05:08 bs3 04/12 04:09 Order name: Troponin High Sensitivity; Complete Time: 05:08 bs3 04/12 04:09 Order name: Urinalysis w/ reflexes bs3 04/12 04:14 Order name: Blood Culture Adult (2) bs3 04/12 04:14 Order name: Lactate w/ 2H reflex if indic.; Complete Time: 05:08 bs3 04/12 04:14 Order name: Protime (+inr); Complete Time: 05:08 bs3 04/12 04:14 Order name: Ptt, Activated; Complete Time: 05:08 bs3 04/12 04:31 Order name: Glucose, Ancillary Testing; Complete Time: 05:08 EDMS 04/12 04:09 Order name: XRAY Chest (1 view) bs3 04/12 04:09 Order name: CT Head Brain wo Cont bs3 04/12 04:14 Order name: EKG; Complete Time: 04:15 bs3 04/12 04:09 Order name: EKG - Nurse/Tech; Complete Time: 04:13 bs3 04/12 04:14 Order name: Accucheck; Complete Time: 04:47 bs3 04/12 04:14 Order name: Cardiac monitoring; Complete Time: 04:17 bs3 04/12 04:14 Order name: IV Saline Lock - Large Bore; Complete Time: 04:17 bs3 04/12 04:14 Order name: Labs collected and sent; Complete Time: 04:17 bs3 04/12 04:14 Order name: O2 Per Protocol; Complete Time: 04:17 bs3 04/12 04:14 Order name: O2 Sat Monitoring; Complete Time: 04:16 bs3 04/12 04:14 Order name: Vital Signs; Complete Time: 04:16 bs3 Administered Medications: 04:47 Drug: NS 0.9% IV 250 ml Route: IV; Rate: bolus; Site: right forearm; rv 05:19 Drug: levofloxacin IVPB 500 mg Volume: 100 ml; Route: IVPB; Infused Over: 60 mins; rv Site: right forearm; 05:42 Follow up: IV Status: Infusion continued upon admission rv Disposition Summary: 04/12/23 05:32 Hospitalization Ordered Hospitalization Status: Inpatient Admission bs3 Provider: Vladislav Aguilar bs3 Location: Telemetry/[facility] (Inpatient) bs3 Condition: Serious bs3 Problem: new bs3 Symptoms: are unchanged bs3 Bed/Room Type: Standard bs3 Room Assignment: 211(04/12/23 05:35) cg Diagnosis - Acute kidney failure, unspecified bs3 - Dizziness and giddiness bs3 Forms: - Medication Reconciliation Form bs3 - SBAR form bs3 Signatures: Dispatcher [employer] Maylin Rocha RN RN cg Jalen Burns RN RN Diego Franco MD MD bs3 Gisela Montez RN RN pf1 Corrections: (The following items were deleted from the chart) 04:17 04:12 Mr. Moss is a pleasant 67-year-old male who presents with dizziness and low blood bs3 pressure in the setting of advanced heart failure he notes that he feels generally lightheaded he denies any numbness tingling or weakness of his extremities he thinks the dizziness just started recently but he has felt low blood pressure over the last several days. bs3 05:35 05:32 bs3 cg
[2023-04-12 06:05] VITALS: O2SAT 100
[2023-04-12] MEDS ORDERED: ACETAMINOPHEN 500 MG TAB PO PRN (06:18)
[2023-04-12] MEDS ORDERED: NA CHLORIDE 0.9% 1,000 ML IV SCH ×2 (06:18→08:00)
[2023-04-12] MEDS ORDERED: ASPIRIN EC 81 MG TAB PO SCH (09:00)
[2023-04-12 12:37] VITALS: TEMP 97
[2023-04-12 13:17] VITALS: BMI 25.7
[2023-04-12 16:49] VITALS: BP 101/77
--- NOTE | 2023-04-12 21:37 | P.SSS ---
Patient History Date of Service: 04/12/23 Reason for admission: FOOT PAIN History of Present Illness: VEENA HAS END STAGE CHF WITH EF OF 15%. HE COMES BACK TO ER FOR FOOT PAIN THAT IS OLD SINCE HE STEPPED ON PEBBLE. HE IS ON ANTIBIOTICS ALREADY AND HAS IMPROVED. HE IS SHORT OF BREATH AT MINIMAL EXERTION AND HAS OFTEN LOW BP. Allergies Penicillins Adverse Reaction (Verified 09/01/22 08:39) hyperventilates Home medications list reviewed: Yes Home Medications: Apixaban [Eliquis *] 2.5 mg PO BID 04/12/23 Colchicine 0.6 mg PO BID 04/12/23 Levofloxacin [Levaquin] 500 mg PO BID 04/12/23 Sertraline HCl 25 mg PO DAILY 04/12/23 - Past Medical/Surgical History Has patient received pneumonia vaccine in the past: Yes Diabetic: Yes -: HTN -: DM -: CHF -: CCM -: Defibulator - Social History Smoking Status: Never smoker Alcohol use: No CD- Drugs: No Caffeine use: No Place of Residence: Home Review of Systems 10-point ROS is otherwise unremarkable General: Weakness Physical Examination - Vital Signs Temperature: 97.0 F Blood Pressure: 101/77 Pulse: 89 Respirations: 18 Pulse Ox (%): 100 - Physical Exam General: Alert, Cachectic, Mild distress HEENT: Atraumatic, PERRLA, Mucous membr. moist/pink, EOMI, Sclerae nonicteric Neck: Supple, 2+ carotid pulse no bruit, No LAD, Without JVD or thyroid abnormality Respiratory: Clear to auscultation bilaterally, Normal air movement Cardiovascular: Regular rate/rhythm, Normal S1 S2 Gastrointestinal: Normal bowel sounds, No tenderness Musculoskeletal: No tenderness Integumentary: No rashes Neurological: Normal gait, Normal speech, Normal strength at 5/5 x4 extr, Normal tone, Normal affect Lymphatics: No axilla or inguinal lymphadenopathy - Studies Laboratory Data (last 24 hrs) 04/12/23 04:10: PT 17.7 H, INR 1.61, APTT 37.8 H 04/12/23 04:10: Sodium 134 L, Potassium 4.5, BUN 95 H, Creatinine 2.46 H, Glucose 116 H, Total Bilirubin 2.1 H, AST 35, ALT 33, Alkaline Phosphatase 235 H 04/12/23 04:10: WBC 6.60, Hgb 9.2 L, Hct 28.5 L, Plt Count 197 - Diagnosis (Problem(s)) (1) Foot injury Status: Chronic Plan: HE SAYS PAIN IS BETTER AND I AM NOT SURE WHY HE CAME BACK. Qualifiers: Encounter type: subsequent encounter (2) Chronic systolic heart failure Status: Chronic Plan: WE HAD A LONG DISCUSSION ABOUT HIS HEART. HE IS A VERY SIKH MAN AND HEARS ONLY WHAT HE WANTS TO HEAR. HIS CREATINNE JUMPED WITH ONLY 20 MG OF LASIX. I TOLD TO GIVE LASIX ONLY WHEN HE HAS DYSPNEA. WE ARE NOT ABLE TO GIVE COREG, ENRESTO AND LASIX BP STAYS LOW. HE HAS GONE THROUGH ALL THERAPY FOR HEART. HE IS LOSING WEIGHT, HE HAS HARD TIME GETTING AROUND AND GETS FATIGUED EASILY. I HAVE MANY TIMES ADIVSED HOSPICE BUT HE GETS ANGRY. TODAY HE AGREES TO GET HELP AT HOME WITH HOSPICE SO HE CAN AVOID RECURRENT VISITS TO ER AND HOSPITAL WHERE NO DOCTORS CAN HELP HIM ANY LONGER. HIS LIFE SPAN MAY BE LIMITED TO LESS THAN 6 MTHS (3) Cardiomyopathy Status: Chronic - Disposition Disposition: ROUTINE DISCHARGE Condition: SERIOUS
--- NOTE | 2023-04-13 10:48 | RAD REPORT ---
EXAM DESCRIPTION: RAD - Chest Single View - 04/12/2023 4:56 am CLINICAL HISTORY: CONGESTION TECHNIQUE: AP chest COMPARISON: April 02 FINDINGS: CHEST: Heart: Prominent cardiomegaly with pacemaker/AICD again noted. Lungs: No focal consolidation. Pulmonary vasculature is within normal limits. Mediastinum: Unremarkable Pleura: No appreciable effusion. No pneumothorax. Bones: Intact IMPRESSION: Prominent cardiomegaly with no evidence of acute infiltrates or failure. Electronically signed by: Elias Medina MD 04/12/2023 5:21 AM CDT Due to temporary technical issues with the PACS/Fluency reporting system, reports are being signed by the in house radiologist without review as a courtesy to ensure prompt reporting. The interpreting r adiologist is fully responsible for the content of the report.
--- NOTE | 2023-04-13 10:50 | RAD REPORT ---
EXAM DESCRIPTION: CT - Head Brain Wo Cont - 04/12/2023 6:35 am CLINICAL HISTORY: DIZZINESS TECHNIQUE: Contiguous axial CT images obtained through the brain without IV contrast. Coronal and sa gittal reformatted images were provided. This exam was performed according to our departmental dose-optimization program, which includes autom ated exposure control, adjustment of the mA and/or kV according to patient size and/or use of iterati ve reconstruction technique. COMPARISON: None available for comparison FINDINGS: Brain: Age-related loss of brain volume and chronic white matter ischemic changes.. Subtle hyper attenuation bordering the right frontal lobe seen on axial images #21 and 22 which could be artifactual, however trace subarachnoid hemorrhage cannot be excluded. Follow-up recommended.. No edema or mass effect. Encephalomalacia high in the left frontal convexity which may represent sequela from chronic infarcti on Ventricles: No ventriculomegaly or midline shift. Extra-axial spaces: No extra-axial collection or hemorrhage. Paranasal sinuses and mastoid air cells: Well-aerated Bones: Unremarkable Soft tissues: Unremarkable IMPRESSION: 1. Subtle hyper attenuation bordering the right frontal lobe seen on axial images #21 and 22 which could be artifactual, however trace subarachnoid hemorrhage cannot be excluded. Follow-u p recommended. 2. Encephalomalacia high in the left frontal convexity which may represent sequela from chronic inf arction. Electronically signed by: Elias Medina MD 04/12/2023 5:30 AM CDT Due to temporary technical issues with the PACS/Fluency reporting system, reports are being signed by the in house radiologist without review as a courtesy to ensure prompt reporting. The interpreting r adiologist is fully responsible for the content of the report.
--- NOTE | 2023-04-13 12:05 | EKG ---
Test Date: 2023-04-12 Test Time: 04:12:33 Field Marketing Associate: RV MEASUREMENT RESULTS: Intervals: Rate: 83 PA: 132 QRSD: 172 QT: 446 QTc: 524 [place]: P: 84 PA: 132 QRS: -77 T: 97 INTERPRETIVE STATEMENTS: Electronic ventricular pacemaker Compared to ECG 04/01/2023 00:15:32 Ventricular premature complex(es) no longer present Atrial-sensed ventricular-paced complex(es) or rhythm no longer present Electronically Signed On 04-13-23 12:00:47 CDT by Sae Aguilera
--- NOTE | 2023-04-13 12:05 | EKG ---
Test Date: 2023-04-12 Test Time: 04:13:35 Hydraulic Barker Operator: RV MEASUREMENT RESULTS: Intervals: Rate: 85 [place]: 126 QRSD: 172 QT: 446 QTc: 530 [place]: P: 83 [place]: 126 QRS: -77 T: 97 INTERPRETIVE STATEMENTS: Electronic ventricular pacemaker Compared to ECG 04/12/2023 04:12:33 No significant changes Electronically Signed On 04-13-23 12:00:46 CDT by aSe Aguilera
== END 2023-04-12 18:50 | disposition home or self-care (01) | DRG 683 ==
LOC: ER 03:44 → ERHOLD 05:28 → 2ND 05:41
PROVIDERS: ADMIT Internal Medicine; ATTEND Internal Medicine
DX: N17.9 Acute kidney failure, unspecified (principal); I42.9 Cardiomyopathy, unspecified; R64 Cachexia; I50.22 Chronic systolic (congestive) heart failure; I11.0 Hypertensive heart disease with heart failure; E11.9 Type 2 diabetes mellitus without complications; M10.9 Gout, unspecified; S99.929D Unspecified injury of unspecified foot, subsequent encounter; Z88.0 Allergy status to penicillin; Z79.01 Long term (current) use of anticoagulants; Z68.25 Body mass index [BMI] 25.0-25.9, adult; Z79.84 Long term (current) use of oral hypoglycemic drugs; Z79.02 Long term (current) use of antithrombotics/antiplatelets; Z79.899 Other long term (current) drug therapy
CPT/HCPCS: 36415; 70450; 71045; 80053; 82947; 83605; 83880; 84484; 85025; 85610; 85730; 87040; 87205; 93005; 96365; 96375; 99285; J7030; J7050